=== PATIENT | female | born 1955 | race Caucasian/White ===

== ENCOUNTER → 2019-10-28 09:02 | Outpatient (BNVA) | payer MEDICARE, MEDICAID, SELFPAY | PROVIDERS: Family Provider Family Medicine; Referring Provider Family Medicine; Visit Provider Internal Medicine Rheumatology | DX: M05.79 Rheumatoid arthritis with rheumatoid factor of multiple sites without organ or systems involvement (principal); M19.90 Unspecified osteoarthritis, unspecified site; Z11.59 Encounter for screening for other viral diseases; Z79.899 Other long term (current) drug therapy; I48.20 Chronic atrial fibrillation, unspecified; Z79.01 Long term (current) use of anticoagulants | CPT/HCPCS: 36415; 82306; 82565; 85651; 86140; 86705; 86706; 86709; 86803; 87340; 99214 ==

== ENCOUNTER → 2019-10-28 10:02 | Outpatient (BNVA) | payer MEDICARE, MEDICAID, SELFPAY | PROVIDERS: Family Provider Family Medicine; Referring Provider Family Medicine; Visit Provider Internal Medicine Rheumatology | DX: M05.79 Rheumatoid arthritis with rheumatoid factor of multiple sites without organ or systems involvement (principal); M19.90 Unspecified osteoarthritis, unspecified site; Z79.899 Other long term (current) drug therapy; I48.20 Chronic atrial fibrillation, unspecified; Z79.01 Long term (current) use of anticoagulants | CPT/HCPCS: 85025 ==

== ENCOUNTER → 2020-01-06 12:06 | Outpatient (BNVA) | payer MEDICARE, MEDICAID, SELFPAY | PROVIDERS: Family Provider Family Medicine; PCP Family Medicine; Visit Provider Internal Medicine Rheumatology | DX: M19.90 Unspecified osteoarthritis, unspecified site (principal); Z79.899 Other long term (current) drug therapy; M05.9 Rheumatoid arthritis with rheumatoid factor, unspecified; D64.9 Anemia, unspecified | CPT/HCPCS: 36415; 82565 ==

== ENCOUNTER → 2020-01-06 17:29 | Outpatient (BNVA) | payer MEDICARE, MEDICAID, SELFPAY | PROVIDERS: Family Provider Family Medicine; PCP Family Medicine; Visit Provider Internal Medicine Rheumatology | DX: M05.9 Rheumatoid arthritis with rheumatoid factor, unspecified (principal); Z79.899 Other long term (current) drug therapy; D64.9 Anemia, unspecified | CPT/HCPCS: 80076; 85025; 85651; 86140 ==

== ENCOUNTER → 2020-03-23 09:52 | Outpatient (BNVA) | payer MEDICARE, MEDICAID, SELFPAY | PROVIDERS: Family Provider Family Medicine; PCP Family Medicine; Visit Provider Specialist | DX: Z96.652 Presence of left artificial knee joint (principal) | CPT/HCPCS: 73560; 73565 ==

== ENCOUNTER → 2020-04-18 10:42 | Outpatient (BNVA) | payer MEDICARE, MEDICAID, SELFPAY | PROVIDERS: Family Provider Family Medicine; PCP Family Medicine; Visit Provider Internal Medicine Rheumatology | DX: Z79.899 Other long term (current) drug therapy (principal); M05.79 Rheumatoid arthritis with rheumatoid factor of multiple sites without organ or systems involvement; N18.9 Chronic kidney disease, unspecified | CPT/HCPCS: 82310; 82565; 85025 ==

== ENCOUNTER → 2020-04-20 13:48 | Outpatient (BNVA) | payer MEDICARE, MEDICAID, SELFPAY | PROVIDERS: Family Provider Family Medicine; PCP Family Medicine; Visit Provider Internal Medicine Rheumatology | DX: M05.79 Rheumatoid arthritis with rheumatoid factor of multiple sites without organ or systems involvement (principal); M85.80 Other specified disorders of bone density and structure, unspecified site; I48.20 Chronic atrial fibrillation, unspecified; Z71.89 Other specified counseling; Z79.899 Other long term (current) drug therapy | CPT/HCPCS: 99214 ==

== ENCOUNTER 2020-04-25 15:16 | Outpatient (CLI) | payer MEDICARE, MEDICAID, SELFPAY ==
[2020-04-25 15:15] VITALS: BP 138/75; PULSE 68; RESP 16; TEMP 36.7; O2SAT 93
[2020-04-25] MEDS: denosumab 60 mg SDV SUBCUT (15:27)
[2020-04-25 15:40] VITALS: BP 139/71; PULSE 69; TEMP 36.7
== END 2020-04-25 15:17 | disposition home or self-care (01) ==
LOC: RHEOACUTE 15:16
PROVIDERS: Family Provider Family Medicine; PCP Family Medicine; Visit Provider Internal Medicine Rheumatology
DX: M81.0 Age-related osteoporosis without current pathological fracture (principal)
CPT/HCPCS: 96372; J0897

== ENCOUNTER → 2020-09-12 10:14 | Outpatient (BNVA) | payer MEDICARE, MEDICAID, SELFPAY | PROVIDERS: Family Provider Family Medicine; Visit Provider Internal Medicine Rheumatology | DX: Z79.899 Other long term (current) drug therapy (principal) | CPT/HCPCS: 80076; 82565; 85025; 85651; 86140 ==

== ENCOUNTER → 2020-10-17 10:43 | Outpatient (BNVA) | payer MEDICARE, MEDICAID, SELFPAY | PROVIDERS: Family Provider Family Medicine; PCP Surgery; Visit Provider Internal Medicine Rheumatology | DX: M85.80 Other specified disorders of bone density and structure, unspecified site (principal); Z79.899 Other long term (current) drug therapy | CPT/HCPCS: 82310; 82565 ==

== ENCOUNTER 2020-12-27 13:38 | Outpatient (CLI) | payer MEDICARE, MEDICAID, SELFPAY ==
[2020-12-27 15:40] LABS: Glomerular Filtration Rate 83.5 mL/min (90-130)
[2020-12-27 22:06] LABS: Calcium 8.9 mg/dL (8.5-10.5)
[2021-01-04 18:57] LABS: Vit D 1,25 (Oh)2, Total 57 pg/mL (18-72); Vit D2 1,25 (Oh)2 <8 pg/mL; Vit D3 1,25 (Oh)2 57 pg/mL
== END 2020-12-27 13:39 | disposition home or self-care (01) ==
PROVIDERS: PCP Registered Nurse; Visit Provider Internal Medicine Rheumatology
DX: M81.0 Age-related osteoporosis without current pathological fracture (principal); Z79.899 Other long term (current) drug therapy; M05.79 Rheumatoid arthritis with rheumatoid factor of multiple sites without organ or systems involvement
CPT/HCPCS: 36415; 82310; 82565; 82652

== ENCOUNTER → 2021-01-09 10:10 | Outpatient (BNVA) | payer MEDICARE, MEDICAID, SELFPAY | PROVIDERS: PCP Registered Nurse; Visit Provider Internal Medicine Rheumatology | DX: M05.79 Rheumatoid arthritis with rheumatoid factor of multiple sites without organ or systems involvement (principal); M85.80 Other specified disorders of bone density and structure, unspecified site; Z79.899 Other long term (current) drug therapy | CPT/HCPCS: 36415; 80076; 82306; 82310; 82565; 85025; 86140 ==

== ENCOUNTER 2021-01-11 10:16 | Outpatient (CLI) | payer MEDICARE, MEDICAID, SELFPAY ==
[2021-01-11 10:36] VITALS: BMI 32.4
--- NOTE | 2021-01-11 10:36 | ECG_ITS ---
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 Interpretive Statements NAME OF STUDY: LEXISCAN SESTAMIBI STRESS TEST INDICATION: [Chest Pain] Procedure: At the baseline, blood pressure was 139/71 mmHg, with a heart rate of 59 bpm. The electrocardiogram showed normal sinus rhythm, normal axis with normal ST and T waves. The Lexiscan was infused over a duration of 20 seconds. A total of 0.4 mg of Lexiscan was infused. Stress phase was continued for a total of 5 minutes. Heart rate at the end of stress phase was 72 bpm, with a blood pressure of 113/57 mmHg. The EKG at the peak infusion revealed sinus rhythm with no significant ST-T wave changes. Sestamibi was injected 20 seconds after the Lexiscan infusion. Blood pressure at the end of recovery phase was 116/55 mmHg, with a heart rate of 69 bpm. Conclusion: 1. Normal EKG response to Lexiscan infusion. 2. No Lexiscan induced chest pain or cardiac arrhythmia. 3. Normal blood pressure and heart rate response. 4. Sestamibi/sestamibi perfusion scan pending; see separate report. Electronically Signed On 02-06-2021 12:44:12 CDT by Eitan Vivas M.D. [id number]
--- NOTE | 2021-01-11 10:37 | NMCV_ITS ---
NM gianfranco perf SPECT r/s* [id number] Laila Maloney Age: 65 Gender: F : 1955 Exam Date: 01/11/2021 10:37 Ordering Phys: Eitan Vivas M.D ([email or web address]) Technologist: ELSIE Rizzo Exam Location: [facility] Indications: CHEST PAIN STRESS TEST Please see separate stress test report in [facility] for full findings IMAGE PROTOCOL Rest/Stress 1 Lexiscan Day Radiopharmaceutical Dose (mCi) Administration Site Administered by Rest: Tc-99m 10.9 IV ELSIE Chacon Sestamibi Stress:Tc-99m 32.6 IV ELSIE Chacon Sestamibi Rest: 11-Jan-2021 60 Discovery 630 Stress: 11-Jan-2021 30 Discovery 630 0.4mg Lexiscan. Supine position only as patient was unable to lay prone. SPECT RESULTS Technical Quality: Excellent Raw Data Analysis: Normal Image Corrections: No attenuation or motion correction applied Summed Stress Score: 0 Summed Rest Score: 0 Summed Difference Score: 0 PERFUSION FINDINGS There is homogenous uptake of radiotracer throughout the myocardium. No evidence of ischemia. FUNCTIONAL RESULTS (calculated via Gated SPECT) Stress Image LV EF (%): 95 Stress EDV (mL):59 TID: 0.94 Stress ESV (mL):3 FUNCTIONAL FINDINGS: There is normal left ventricular systolic function. IMPRESSIONS 1. Normal myocardial perfusion imaging with no evidence of ischemia. 2. LV systolic function is normal Eitan Vivas MD (Electronically Signed) Final Date: 12 January 2021 20:31 S
[2021-01-11] MEDS: regadenoson 0.4 Mg/5 ml Syringe IVP (12:40)
[2021-01-11 12:46] VITALS: BP 116/55; PULSE 69
--- NOTE | 2021-01-11 14:15 | USCV_ITS ---
Haider Laila Age: 65 Gender: F : 1955 Exam Date: 01/11/2021 10:31 Ordering Phys: Eitan Vivas M.D ([email or web address]) Technologist: Joyce Way Exam Location: [facility] Indication: CHEST PAIN BP: 126 / 65 HR: 60 Rhythm: Sinus Technical Quality: Adequate MEASUREMENTS (Male / Female) Normal Values 2D ECHO LV Diastolic Diameter PLAX 3.3 cm 4.2 - 5.9 / 3.9 - 5.3 cm LV Systolic Diameter PLAX 1.8 cm LV Chamber Size 2.6 cm IVS Diastolic Thickness 1.4 cm 0.6 - 1.0 / 0.6 - 0.9 cm IVS Systolic Thickness 1.2 cm LVPW Diastolic Thickness 1.5 cm 0.6 - 1.0 / 0.6 - 0.9 cm LVPW Systolic Thickness 2.0 cm RV Chamber Size 2.4 cm LVOT Diameter 2.0 cm LV Ejection Fraction 2D Teich 77.8 % LV Ejection Fraction MOD 2C 68.6 % LV Ejection Fraction 2C AL 68.6 % LA Diameter 3.4 cm LA Width 3.6 cm LA Height 5.2 cm RA Width 3.0 cm RA Height 3.9 cm M-MODE LV Diastolic Diameter MM 4.8 cm 4.2 - 5.9 / 3.9 - 5.3 cm LV Systolic Diameter MM 2.6 cm LV Ejection Fraction MM Teich 77.8 % IVS Diastolic Thickness MM 0.6 cm 0.6 - 1.0 / 0.6 - 0.9 cm IVS Systolic Thickness MM 1.0 cm LVPW Diastolic Thickness MM 1.0 cm 0.6 - 1.0 / 0.6 - 0.9 cm LVPW Systolic Thickness MM 1.5 cm Aortic Annulus Diameter 1.7 cm LA Ao Ratio MM 2.6 MV E Point Septal Separation 0.5 cm DOPPLER AV Peak Velocity 206.7 cm/s LVOT Peak Velocity 137.7 cm/s AV Area Cont Eq vti 2.1 cm squared AV Area Cont Eq pk 2.1 cm squared MV Area PHT 2.6 cm squared Mitral E to A Ratio 1.5 MV E' Velocity 91.5 cm/s Mitral E to MV E' Ratio 10.4 Mitral E to LV E' Lateral Ratio 12.0 Mitral E to LV E' Septal Ratio 9.3 TR Peak Velocity 189.3 cm/s TR Peak Gradient 14.3 mmHg TV Peak E Velocity 81.0 cm/s Right Atrial Pressure 3.0 mmHg Pulmonary Artery Systolic Pressu 17.3 mmHg PV Peak Velocity 78.0 cm/s RV Acceleration Time 0.2 s RV Ejection Time 0.4 s RV AcT/ET 0.4 FINDINGS Left Ventricle Normal left ventricular size. LV systolic function is normal with EF of 60-65%. No regional wall motion abnormalities. Normal diastolic filling pattern. Right Ventricle The right ventricle is normal in size and function. Right Atrium The right atrium is enlarged Left Atrium The left atrium is enlarged Mitral Valve Moderate mitral annular calcification without significant stenosis or prolapse. There is trace mitral regurgitation. Aortic Valve Aortic valve is thickened without significant sclerosis or stenosis. There is no aortic regurgitation. Tricuspid Valve Structurally normal tricuspid valve without significant stenosis or regurgitation. Insufficient TR jet to calculate RVSP Pulmonic Valve Structurally normal pulmonic valve without significant stenosis. There is no pulmonic regurgitation. Pericardium Normal pericardium without effusion. Aorta Normal ascending aorta dimension. CONCLUSIONS LV systolic function is normal with EF of 60-65% Diastolic function is normal Biatrial enlargement Moderate mitral annular calcification is noted. Trace mitral regurgitation Aortic valve is thickened Compared to prior echocardiogram from 01/22/2018, no significant changes are noted Eitan Vivas MD (Electronically Signed) Final Date: 21 January 2021 14:28 S
== END 2021-01-11 10:17 | disposition home or self-care (01) ==
LOC: CDL 10:19
PROVIDERS: PCP Registered Nurse; Visit Provider Internal Medicine
DX: R07.9 Chest pain, unspecified (principal)
CPT/HCPCS: 78452; 93017; 93306; A9500; J2785

== ENCOUNTER → 2021-01-16 16:06 | Outpatient (BNVA) | payer MEDICARE, MEDICAID, SELFPAY | PROVIDERS: PCP Registered Nurse; Visit Provider Internal Medicine Rheumatology | DX: M05.79 Rheumatoid arthritis with rheumatoid factor of multiple sites without organ or systems involvement (principal); Z79.899 Other long term (current) drug therapy; M85.80 Other specified disorders of bone density and structure, unspecified site; I48.20 Chronic atrial fibrillation, unspecified; Z79.01 Long term (current) use of anticoagulants | CPT/HCPCS: 99214 ==

== ENCOUNTER 2021-01-30 12:33 | Outpatient (CLI) | payer MEDICARE, MEDICAID, SELFPAY ==
[2021-01-30] MEDS: denosumab 60 mg SDV SUBCUT (13:05)
[2021-01-30 13:07] VITALS: BP 115/61; PULSE 55; RESP 17; TEMP 36.9; O2SAT 100
== END 2021-01-30 12:34 ==
LOC: ONCMED 12:36
PROVIDERS: PCP Registered Nurse; Visit Provider Internal Medicine Rheumatology
DX: M81.0 Age-related osteoporosis without current pathological fracture (principal)
CPT/HCPCS: 96372; J0897

== ENCOUNTER → 2021-04-26 10:38 | Outpatient (BNVA) | payer MEDICARE, MEDICAID, SELFPAY | PROVIDERS: PCP Registered Nurse; Visit Provider Internal Medicine Rheumatology | DX: Z01.89 Encounter for other specified special examinations (principal); M05.79 Rheumatoid arthritis with rheumatoid factor of multiple sites without organ or systems involvement; Z79.899 Other long term (current) drug therapy | CPT/HCPCS: 80076; 82565; 85025; 86140 ==

== ENCOUNTER → 2021-05-08 09:59 | Outpatient (BNVA) | payer MEDICARE, MEDICAID, SELFPAY | PROVIDERS: PCP Registered Nurse; Visit Provider Registered Nurse | DX: Z01.89 Encounter for other specified special examinations (principal); D64.9 Anemia, unspecified | CPT/HCPCS: 80053; 82607; 82728; 83550; 84443; 85007; 85027 ==

== ENCOUNTER → 2021-05-14 10:24 | Outpatient (BNVA) | payer MEDICARE, MEDICAID, SELFPAY | PROVIDERS: PCP Registered Nurse; Visit Provider Registered Nurse | DX: R31.9 Hematuria, unspecified (principal) | CPT/HCPCS: 81000; 87086 ==

== ENCOUNTER 2021-05-15 10:48 | Outpatient (CLI) | payer MEDICARE, MEDICAID, SELFPAY ==
--- NOTE | 2021-05-15 10:55 | XRR_ITS ---
PROCEDURE INFORMATION: Exam: XR Chest Exam date and time: 05/15/2021 10:55 AM Age: 66 years old Clinical indication: Condition or disease; Lung condition and disease; Copd; Complications not specified; Additional info: J44.9 - chronic obstructive pulmonary disease, unspecified TECHNIQUE: Imaging protocol: XR of the chest. Views: 2 views. COMPARISON: CR XR knees AP WB w LT lmt ORTH 03/23/2020 9:57 AM FINDINGS: Lungs: There is subsegmental atelectasis in the right base. The left lung is clear. Pleural spaces: Small right pleural effusion is present. There is no pneumothorax. Heart/Mediastinum: The cardiac silhouette is at the upper limit of normal size. The aorta is tortuous. Bones/joints: Unremarkable. XR/XR chest 2V* [id number] IMPRESSION: Small right pleural effusion with subsegmental right basilar atelectasis.
== END 2021-05-15 10:49 | disposition home or self-care (01) ==
LOC: RAD 10:51
PROVIDERS: PCP Registered Nurse; Visit Provider Registered Nurse
DX: J44.9 Chronic obstructive pulmonary disease, unspecified (principal); J90 Pleural effusion, not elsewhere classified
CPT/HCPCS: 71046

== ENCOUNTER → 2021-05-28 11:01 | Outpatient (BNVA) | payer MEDICARE, MEDICAID, SELFPAY | PROVIDERS: PCP Registered Nurse; Visit Provider Surgery | DX: Z20.822 Contact with and (suspected) exposure to COVID-19 (principal); Z86.010 Personal history of colon polyps | CPT/HCPCS: 87635 ==

== ENCOUNTER 2021-06-01 09:09 | Day surgery (SDC) | payer MEDICARE, MEDICAID, SELFPAY ==
[2021-05-29 13:23] VITALS: BMI 29.7
--- NOTE | 2021-06-01 09:44 | P.ANESASSM_ITS ---
Pre-Anesthetic Assessment Pre-Anesthetic Assessment: Height/Weight: Height 1.6 m Weight 76.204 kg Preop Diagnosis: Hematemesis and history of colon polyps Proposed Procedure: Operation Date: 06/01/21 11:00 Proposed Procedures p EGD/colon 88653 42589 D64.9 Z86.010(Not Applicable) - MD ana Cates Colonoscopy(Not Applicable) - Yamil Alexander MD Was Beta Kelly taken within 24 hours: N/A Was Clonidine taken within 24 hours: N/A Social: Social History: No alcohol and No tobacco Exam: Pre-Anes Outpt Exam: alert, oriented x 3 and regular rate & rhythm Airway: Submandibular: WNL Cervical ROM: WNL MP: 2 Dentition: False Pulmonary: Pulmonary: COPD and Sleep apnea CV/HEM: CV/HEM: Afib, Anemia, Arrythmia, CHF, HTN and PVD : : Chronic renal Insufficiency Musc/skel: Musc/skel: RA Comments: Chronic steroids Anesthetic Plan: ASA status: 3 Anesthesia: MAC Risk of > 500 ml blood loss (7ml/kg in children): No PFSH Anesthesia PFSH: Medical History Anemia Pt is having unexplained anemia. Undetermined if there is blood loss but patient has no complaints and is stable. Requested previous colonoscopy report. Pt had reported normal findings. However, determined otherwise. See note. Anticoagulated by anticoagulation treatment Anticoagulation adequate Atrial fibrillation Atrial flutter Carotid stenosis, bilateral CHF (congestive heart failure) Chronic headaches Chronic kidney disease (CKD) Single kidney COPD (chronic obstructive pulmonary disease) COPD, mild CVA (cerebral vascular accident) Depression Essential hypertension Hepatitis B High risk medication use MVP (mitral valve prolapse) LUKE (obstructive sleep apnea) Osteopenia after menopause Renal failure Rheumatoid arthritis Rheumatoid arthritis with rheumatoid factor Seropositive rheumatoid arthritis of multiple sites Surgical History History of left knee replacement History of thoracentesis S/P cataract extraction S/P D&C (status post dilation and curettage) S/P knee replacement S/P rotator cuff repair Family History Mother Hypertension CAD (coronary artery disease) Father Hypertension CAD (coronary artery disease) Stroke Cancer Brother Hypertension CAD (coronary artery disease) Sister Hypertension CAD (coronary artery disease) Grandfather CAD (coronary artery disease) Grandmother CAD (coronary artery disease) Stroke Diabetes Daughter Hypertension Other Chronic kidney disease (CKD) Lung disease Social History Alcohol intake: never Lives independently: Yes Household members: significant other Marital status: service: No Current occupational status: retired Current gender identity: Female Apurva/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
[2021-06-01 10:59] VITALS: BP 108/59; PULSE 67; RESP 16; TEMP 37.1; O2SAT 100
[2021-06-01] MEDS: sodium chloride 0.9% 1,000 ML 30 ML IV (11:20)
--- NOTE | 2021-06-01 11:31 | W.PM.OPSUD ---
Surgery/Procedure H&P Update DATE OF PROCEDURE: June 01, 2021 DATE H&P PERFORMED: 05/21/21 H&P UPDATE INFORMATION: I have reviewed H&P completed within last 30 days, I have examined patient prior to procedure and No changes to prior documentation PREOP DIAGNOSIS: Hematemesis and history of colon polyps PRIMARY INDICATION FOR PROCEDURE: The same PLANNED PROCEDURE: Operation Date: 06/01/21 11:00 Proposed Procedures p EGD/colon 07771 93811 D64.9 Z86.010(Not Applicable) - Yamil Alexander MD s Colonoscopy(Not Applicable) - Yamil Alexander MD
[2021-06-01 12:12] VITALS: BP 95/69; PULSE 80; RESP 16; TEMP 36.7; O2SAT 100
[2021-06-01 12:22] VITALS: BP 95/68; PULSE 75; RESP 18; O2SAT 100
--- NOTE | 2021-06-01 15:39 | ANE.PACU2 ---
Inpatient post-anesthesia follow up: Airway intact: Yes Vital signs: Temperature 98.1 F Pulse Rate 75 Respiratory Rate 18 Blood Pressure 95/68 Pulse Oximetry 100 Oxygen Delivery Me thod Nasal Cannula Oxygen Flow Rate 5 Fraction of Inspir ed Oxygen Hydration adequate: Yes Nausea and vomiting: No Pain level: 1 Mental status: Baseline
[2021-06-02 12:07] LABS: H. Pylori / CLO Test Negative
== END 2021-06-01 13:03 | disposition home or self-care (01) ==
PROVIDERS: PCP Registered Nurse; Visit Provider Surgery
PROC: 0DJ08ZZ Inspection of Upper Intestinal Tract, Via Natural or Artificial Opening Endoscopic (ICD-10-PCS; CPT 43235; principal; 2021-06-01 11:00)
PROC: 0DJD8ZZ Inspection of Lower Intestinal Tract, Via Natural or Artificial Opening Endoscopic (ICD-10-PCS; CPT 45378; 2021-06-01 11:00)
DX: K92.0 Hematemesis (principal); Z86.010 Personal history of colon polyps; Z79.82 Long term (current) use of aspirin; Z79.01 Long term (current) use of anticoagulants; K64.4 Residual hemorrhoidal skin tags; K29.70 Gastritis, unspecified, without bleeding; I48.91 Unspecified atrial fibrillation; K21.00 Gastro-esophageal reflux disease with esophagitis, without bleeding; J44.9 Chronic obstructive pulmonary disease, unspecified; G47.33 Obstructive sleep apnea (adult) (pediatric); I13.0 Hypertensive heart and chronic kidney disease with heart failure and stage 1 through stage 4 chronic kidney disease, or unspecified chronic kidney disease; N18.9 Chronic kidney disease, unspecified; I50.9 Heart failure, unspecified; M06.9 Rheumatoid arthritis, unspecified; Z82.49 Family history of ischemic heart disease and other diseases of the circulatory system; Z83.3 Family history of diabetes mellitus
CPT/HCPCS: 43239; 45378; 87077; 88305; 96360; J2704; J3490; J7030

== ENCOUNTER → 2021-06-13 10:25 | Outpatient (BNVA) | payer MEDICARE, MEDICAID, SELFPAY | PROVIDERS: PCP Registered Nurse; Visit Provider Registered Nurse | DX: D64.9 Anemia, unspecified (principal); J90 Pleural effusion, not elsewhere classified | CPT/HCPCS: 82728; 83540; 85025 ==

== ENCOUNTER 2021-06-19 16:18 | Outpatient (CLI) | payer MEDICARE, MEDICAID, SELFPAY ==
--- NOTE | 2021-06-19 16:31 | XR_ITS ---
WS: [id number] XR chest 2V* [id number] REASON FOR EXAM: J90 - Pleural effusion, not elsewhere classified FINDINGS: Tortuous thoracic aorta. The heart size is at the upper limits of normal. No active pulmonary parenchymal or pleural disease in the left hemithorax. Chronic appearing pleural thickening in the lower right hemithorax. Mediastinal mass which presumably represents large hiatal hernia which was demonstrated on previous C T scan of 01/26/2018. Compared to the previous chest x-ray of 05/15/2021 there may be an infiltrative process developing in the right lower XR/XR chest 2V* [id number] IMPRESSION: Chronic appearing pleural changes which may be secondary to large right pleural effusion demonstrated in January 2018. These findings are unchanged compared to 05/15/2021. Concern for subacute or acute pneumonitis in the right lower lung. Follow-up ch est x-ray recommended as is clinically warranted.
== END 2021-06-19 16:19 | disposition home or self-care (01) ==
LOC: RAD 16:24
PROVIDERS: PCP Registered Nurse; Visit Provider Registered Nurse
DX: J90 Pleural effusion, not elsewhere classified (principal)
CPT/HCPCS: 71046

== ENCOUNTER → 2021-06-26 13:50 | Outpatient (BNVA) | payer MEDICARE, MEDICAID, SELFPAY | PROVIDERS: PCP Registered Nurse; Visit Provider Registered Nurse | DX: D64.9 Anemia, unspecified (principal); R53.83 Other fatigue; J18.9 Pneumonia, unspecified organism | CPT/HCPCS: 81000; 85018 ==

== ENCOUNTER → 2021-07-02 10:34 | Outpatient (BNVA) | payer MEDICARE, MEDICAID, SELFPAY | PROVIDERS: PCP Registered Nurse; Visit Provider Registered Nurse | DX: D64.9 Anemia, unspecified (principal) | CPT/HCPCS: 85025 ==

== ENCOUNTER 2021-07-04 08:38 | Outpatient (CLI) | payer MEDICARE, MEDICAID, SELFPAY ==
--- NOTE | 2021-07-04 10:52 | ONC FU_ITS ---
Dr. Nunez follow up note Patient: Laila Maloney Unit #: [id number]: 1955 Dicatated By: London Nunez M.D.Date of Visit:Jul 04, 2021 Onc Med Follow-up/Prog Note History of Present Illness: Ms. Laila Maloney, is a 66-year-old female with history of off and on anemia since age 25, as per patient ,at that time , she was given oral iron and iron infusion with good response and, history of blood transfusion on multiple occasion especially when patient underwent any sort of procedure and last time she received blood transfusion was in 2017 or 18 when she underwent knee replacement. Since then she is on oral iron 1 tablet a day, tolerating well except constipation for which she take Metamucil. Now complaining of off and on indigestion and and generalized weakness and fatigue, lab work-up done on June 13, 2021 shows white blood count 5.2 hemoglobin 7.8 hematocrit 30.1 MCV 67.2 platelets 315,000 and ferritin 12 iron 17, patient was referred to Dr. Alexander for evaluation and she underwent EGD and colonoscopy which showed hiatal hernia GERD and gastritis, colonoscopy showed external hemorrhoids with bleeding stigmata otherwise normal findings Patient denies any history of gastric bypass surgery but patient has history of atrial fibrillation/flutter and on anticoagulation with Eliquis. Patient denies any melena or hematochezia but sometimes mild bleeding from hemorrhoids especially after hard stools. Denies any hemoptysis or hematemesis denies any nosebleed or gum bleed denies any hematuria or vaginal bleeding denies any jaundice. Complaining of generalized weakness and fatigue, dyspnea and palpitation on exertion. As per patient her PMD checked her CBC on June 26, 2021 hemoglobin was 8.6 g. Patient denies any night sweats denies any recurrent fever denies any peripheral lymphadenopathy denies any abdominal fullness, denies any lightheadedness or dizziness denies any weight loss. Patient denies smoking alcohol use. Medications: Acetaminophen Extra Strength 2 Tablet (of 500 mg) Capsule Oral q 6 hours PRN, Albuterol Sulfate HFA 2 Puff(s) (of 108 (90 base) mcg/act) Aerosol, solution Inhalation q PRN, Apixaban 1 Tablet (of 5 mg) Oral b.i.d., Bimatoprost 1 Drop(s) (of 0.01 %) Solution Ophthalmic daily, Eczcsiv-Nrvryyblxaa-Ettpjxzvlo 2 Puff(s) (of 160-9-4.8 mcg/act) Aerosol Inhalation b.i.d., cycloSPORINE 1 Drop(s) (of 0.05 %) Emulsion Ophthalmic b.i.d., DULoxetine HCl Capsule Delayed Release Particles Oral daily, Erythromycin 1 Drop(s) (of 5 mg/g) Ointment Ophthalmic daily, Furosemide 0.5 Tablet (of 20 mg) Oral every am, Ipratropium-Albuterol 2 Puff(s) (of 20-100 mcg/act) Aerosol, solution Inhalation q 6 hours PRN, Metoprolol Tartrate 1 Tablet (of 25 mg) Oral daily, Pantoprazole Sodium 1 Tablet (of 40 mg) Tablet, enteric coated Oral daily, Potassium Chloride Caitlin ER 1 Tablet (of 20 meq) Tablet, controlled release Oral daily, predniSONE 1 Tablet (of 10 mg) Oral daily PRN Allergies: Aspirin, Digoxin, Influenza Vaccine, Monosodium Glutamate, Shellfish, and Sulfa Antibiotics. Review of Systems: Review of Systems is not available for this patient. Vital Signs: Performed on Jul 04, 2021 10:37 Height - 60 in Weight - 164.8 lbs (HIGH) BSA - 1.72 sq.m BMI - 32.19 (HIGH) Temperature - 98.3 F (LOW) Pulse - 54 /min (LOW) Respiration - 18 /min BP - 104/63 mm(hg) O2 Sat - 98 % Pain - 8 Fatigue - 8 Performance Status: 0 - Fully active, able to carry on all predisease activities without restrictions. (ECOG) Physical Examination: ENMT - No mouth sores, no thrush, no jaundice, Respiratory - Lungs are clear to auscultation, Cardiovascular - Irregular rate and rhythm, Abdomen - Soft, bowel sounds present, Extremities - No visible edema. Lab/Imaging: Most recent lab results are not available for this patient. Impression: Microcytic hypochromic anemia due to iron deficiency probably due to chronic blood loss either from hemorrhoids as colonoscopy showed external hemorrhoids with bleeding stigmata other possibility could be small bowel AVMs or iron malabsorption. Atrial fibrillation/atrial flutter on anticoagulation with Eliquis Congestive heart failure Chronic kidney disease COPD Rheumatoid arthritis/seropositive rheumatoid arthritis of multiple sites Plan: Discussed with patient regarding her labs from June 13, 2021 which showed white blood count 5.2 hemoglobin 7.8 hematocrit 30.1 platelets 315,000 ferritin 12, iron 17, as per patient repeat CBC on June 26, 2021 her hemoglobin was 8.6 g., Clinically, patient is doing reasonably well now with symptomatic iron deficiency anemia, not tolerating oral iron well moreover she not responding to oral iron which could be either due to iron malabsorption or noncompliance or chronic blood loss especially small bowel AVMs or bleeding from external hemorrhoids as patient is on anticoagulation for atrial fibrillation. At this point, will consider parenteral iron, Injectafer 750 mg IV weekly x2 then follow her in a month with CBC and iron studies, Patient has history of seropositive rheumatoid arthritis and a chronic kidney disease then may also be contributing to her anemia and considering her age underlying myelodysplasia cannot be ruled out so if with correction of iron deficiency, her anemia still persist then we will consider further evaluation including bone marrow. Return to clinic 1 month after second dose of Injectafer with CBC and iron studies Signed By: London Nunez M.D. <<Signature on File>>
== END 2021-07-04 08:39 | disposition home or self-care (01) ==
PROVIDERS: PCP Registered Nurse; Visit Provider Internal Medicine Hematology & Oncology
DX: D50.9 Iron deficiency anemia, unspecified (principal); I48.91 Unspecified atrial fibrillation; Z79.01 Long term (current) use of anticoagulants; I50.9 Heart failure, unspecified; N18.9 Chronic kidney disease, unspecified; J44.9 Chronic obstructive pulmonary disease, unspecified; M05.9 Rheumatoid arthritis with rheumatoid factor, unspecified; Z79.899 Other long term (current) drug therapy
CPT/HCPCS: 99204

== ENCOUNTER 2021-07-12 14:32 | Outpatient (CLI) | payer MEDICARE, MEDICAID, SELFPAY ==
[2021-07-12] MEDS: sodium chloride 0.9% (100 ml) 100 ML 400 ML (15:20)
[2021-07-12] MEDS: ferric carboxy (IVPB) 750 MG in sodium chloride 0.9% (100 ml) 100 ML 460 MG IV (15:20)
== END 2021-07-12 14:33 | disposition home or self-care (01) ==
LOC: ONCMED 14:34
PROVIDERS: PCP Registered Nurse; Visit Provider Internal Medicine Hematology & Oncology
DX: D50.9 Iron deficiency anemia, unspecified (principal); I48.91 Unspecified atrial fibrillation; Z79.01 Long term (current) use of anticoagulants; I50.9 Heart failure, unspecified; N18.9 Chronic kidney disease, unspecified; J44.9 Chronic obstructive pulmonary disease, unspecified; M05.9 Rheumatoid arthritis with rheumatoid factor, unspecified; Z79.899 Other long term (current) drug therapy
CPT/HCPCS: 96365; J1439

== ENCOUNTER → 2021-07-16 13:44 | Outpatient (BNVA) | payer MEDICARE, MEDICAID, SELFPAY | PROVIDERS: PCP Registered Nurse; Visit Provider Internal Medicine Rheumatology | DX: M05.79 Rheumatoid arthritis with rheumatoid factor of multiple sites without organ or systems involvement (principal); Z79.899 Other long term (current) drug therapy; M85.80 Other specified disorders of bone density and structure, unspecified site; I48.20 Chronic atrial fibrillation, unspecified; Z79.01 Long term (current) use of anticoagulants; Z71.89 Other specified counseling | CPT/HCPCS: 99214 ==

== ENCOUNTER 2021-07-20 09:07 | Outpatient (CLI) | payer MEDICARE, MEDICAID, SELFPAY ==
[2021-07-20] MEDS: ferric carboxy (IVPB) 750 MG in sodium chloride 0.9% (100 ml) 100 ML 460 MG IV (09:56)
== END 2021-07-20 09:08 | disposition home or self-care (01) ==
PROVIDERS: PCP Registered Nurse; Visit Provider Internal Medicine Hematology & Oncology
DX: D50.9 Iron deficiency anemia, unspecified (principal)
CPT/HCPCS: 96374; J1439

== ENCOUNTER 2021-07-23 06:00 | Outpatient (CLI) | payer MEDICARE, MEDICAID, SELFPAY | END 2021-07-23 06:01 | disposition home or self-care (01) | LOC: ONCMED 04-01 11:58 | PROVIDERS: PCP Registered Nurse; Visit Provider Internal Medicine Medical Oncology | DX: M05.79 Rheumatoid arthritis with rheumatoid factor of multiple sites without organ or systems involvement (principal); M85.80 Other specified disorders of bone density and structure, unspecified site; Z79.899 Other long term (current) drug therapy | CPT/HCPCS: 80076; 82306; 82565; 85025; 86140 ==

== ENCOUNTER 2021-08-01 14:08 | Outpatient (CLI) | payer MEDICARE, MEDICAID, SELFPAY ==
[2021-08-01 15:44] LABS: Alanine Aminotransferase 7 U/L (0-33); Albumin Level 4.1 g/dL (3.5-5.2); Alkaline Phosphatase 64 IU/L (35-105); Anion Gap 14.9 (5-19); Aspartate Amino Transferase 15 U/L (0-32); Blood Urea Nitrogen 17 mg/dL (8-23); Calcium 8.7 mg/dL (8.5-10.5); Carbon Dioxide 25 mmol/L (22-29); Chloride 106 mmol/L (98-107); Globulin 3.1 g/dL (1.3-4.6); Glomerular Filtration Rate 83.2 mL/min (90-130); Glucose 84 mg/dL (65-115); Osmolality Calculated 293 mOsm/kg (285-295); Potassium 4.9 mmol/L (3.5-5.1); Sodium 141 mmol/L (136-145); Total Bilirubin 1.4 mg/dL (0.15-1.2); Total Protein 7.2 g/dL (6.6-8.7)
[2021-08-01 16:03] VITALS: BP 119/52; PULSE 71; RESP 18; TEMP 36.9; O2SAT 99
[2021-08-01] MEDS: denosumab 60 mg SDV SUBCUT (16:16)
[2021-08-01 16:28] VITALS: BP 119/53; PULSE 65; RESP 18; TEMP 37.1; O2SAT 98
== END 2021-08-01 14:09 | disposition home or self-care (01) ==
LOC: ONCMED 14:12
PROVIDERS: PCP Registered Nurse; Referring Provider Internal Medicine Rheumatology; Visit Provider Internal Medicine Medical Oncology
DX: M81.0 Age-related osteoporosis without current pathological fracture (principal)
CPT/HCPCS: 36415; 80053; 96372; J0897

== ENCOUNTER → 2021-08-21 10:50 | Outpatient (BNVA) | payer MEDICARE, MEDICAID, SELFPAY | PROVIDERS: PCP Registered Nurse; Visit Provider Internal Medicine Rheumatology | DX: D64.9 Anemia, unspecified (principal); E61.1 Iron deficiency | CPT/HCPCS: 82728 ==

== ENCOUNTER → 2021-09-18 00:01 | Outpatient (BNVA) | payer MEDICARE, MEDICAID, SELFPAY | PROVIDERS: PCP Registered Nurse; Visit Provider Internal Medicine Hematology & Oncology | DX: D64.9 Anemia, unspecified (principal) | CPT/HCPCS: 82728; 83550; 85025 ==

== ENCOUNTER 2021-09-25 09:36 | Outpatient (CLI) | payer MEDICARE, MEDICAID, SELFPAY ==
--- NOTE | 2021-09-25 12:55 | ONC FU_ITS ---
Dr. Nunez follow up note Patient: Laila Maloney Unit #: [id number]: 1955 Dicatated By: London Nunez M.D.Date of Visit:Sep 25, 2021 Onc Med Follow-up/Prog Note History of Present Illness: Ms. Laila Maloney, is a 66-year-old female with history of off and on anemia since age 25, as per patient ,at that time , she was given oral iron and iron infusion with good response and, history of blood transfusion on multiple occasion especially when patient underwent any sort of procedure and last time she received blood transfusion was in 2017 or 18 when she underwent knee replacement. Since then she is on oral iron 1 tablet a day, tolerating well except constipation for which she take Metamucil. Now complaining of off and on indigestion and and generalized weakness and fatigue, lab work-up done on June 13, 2021 shows white blood count 5.2 hemoglobin 7.8 hematocrit 30.1 MCV 67.2 platelets 315,000 and ferritin 12 iron 17, patient was referred to Dr. Alexander for evaluation and she underwent EGD and colonoscopy which showed hiatal hernia GERD and gastritis, colonoscopy showed external hemorrhoids with bleeding stigmata otherwise normal findings Patient denies any history of gastric bypass surgery but patient has history of atrial fibrillation/flutter and on anticoagulation with Eliquis. Patient denies any melena or hematochezia but sometimes mild bleeding from hemorrhoids especially after hard stools. Denies any hemoptysis or hematemesis denies any nosebleed or gum bleed denies any hematuria or vaginal bleeding denies any jaundice. Complaining of generalized weakness and fatigue, dyspnea and palpitation on exertion. As per patient her PMD checked her CBC on June 26, 2021 hemoglobin was 8.6 g. Patient denies any night sweats denies any recurrent fever denies any peripheral lymphadenopathy denies any abdominal fullness, denies any lightheadedness or dizziness denies any weight loss. Patient denies smoking alcohol use. Status post Injectafer 750 mg IV weekly x2 on July 12 and July 20, 2021 with excellent response e.g. resolution of iron deficiency anemia Came for follow-up, denies any specific complaints, no fever chills, no nausea or vomiting, no diarrhea constipation, no melena hematochezia no hemoptysis or hematemesis, no shortness of breath or palpitation. No jaundice Medications: Acetaminophen Extra Strength 2 Tablet (of 500 mg) Capsule Oral q 6 hours PRN, Albuterol Sulfate HFA 2 Puff(s) (of 108 (90 base) mcg/act) Aerosol, solution Inhalation q PRN, Apixaban 1 Tablet (of 5 mg) Oral b.i.d., Bimatoprost 1 Drop(s) (of 0.01 %) Solution Ophthalmic daily, Bukuvbz-Rsgvncoeceu-Ooicderqoj 2 Puff(s) (of 160-9-4.8 mcg/act) Aerosol Inhalation b.i.d., cycloSPORINE 1 Drop(s) (of 0.05 %) Emulsion Ophthalmic b.i.d., DULoxetine HCl Capsule Delayed Release Particles Oral daily, Erythromycin 1 Drop(s) (of 5 mg/g) Ointment Ophthalmic daily, Furosemide 0.5 Tablet (of 20 mg) Oral every am, Humira Subcutaneous Take as Directed, Ipratropium-Albuterol 2 Puff(s) (of 20-100 mcg/act) Aerosol, solution Inhalation q 6 hours PRN, Metoprolol Tartrate 1 Tablet (of 25 mg) Oral daily, Pantoprazole Sodium 1 Tablet (of 40 mg) Tablet, enteric coated Oral daily, Potassium Chloride Caitlin ER 1 Tablet (of 20 meq) Tablet, controlled release Oral daily, predniSONE 1 Tablet (of 10 mg) Oral daily PRN, Topamax 1 Tablet (of 25 mg) Oral daily Allergies: Aspirin, Digoxin, Influenza Vaccine, Monosodium Glutamate, Shellfish, and Sulfa Antibiotics. Review of Systems: Review of Systems is not available for this patient. Vital Signs: Performed on Sep 25, 2021 12:37 Height - 60.00 in Weight - 162.0 lbs (LOW) BSA - 1.71 sq.m BMI - 31.64 (HIGH) Temperature - 97.8 F (LOW) Pulse - 57 /min (LOW) Respiration - 16 /min BP - 111/76 mm(hg) O2 Sat - 99 % Pain - 5 Fatigue - 6 Performance Status: 0 - Fully active, able to carry on all predisease activities without restrictions. (ECOG) Physical Examination: ENMT - No mouth sores, no thrush, no jaundice, Respiratory - Lungs are clear to auscultation, Cardiovascular - Regular rate and rhythm of heart, Abdomen - Soft, bowel sounds present, Extremities - No visible edema. Lab/Imaging: Most recent lab results are not available for this patient. Impression: Microcytic hypochromic anemia due to iron deficiency probably due to chronic blood loss either from hemorrhoids as colonoscopy showed external hemorrhoids with bleeding stigmata other possibility could be small bowel AVMs or iron malabsorption. Atrial fibrillation/atrial flutter on anticoagulation with Eliquis Congestive heart failure Chronic kidney disease COPD Rheumatoid arthritis/seropositive rheumatoid arthritis of multiple sites Plan: Discussed with patient regarding her labs white blood count 3.4 hemoglobin 13.8 g compared to 7.8 g prior to Injectafer infusion, hematocrit 46.8 platelets 223,000, iron studies shows ferritin 135 compared to 12 prior to iron infusion Clinically, patient doing well with no new signs symptom suggestive of gross bleeding, her follow-up labs shows excellent response to parenteral iron now with resolution of iron deficiency anemia and iron studies shows iron stores adequate. At this point will continue to monitor she will return to clinic in 2 months with CBC and iron studies, in the meantime we will obtain capsule endoscopy report from Dr. Hernandez's office. Signed By: London Nunez M.D. <<Signature on File>>
== END 2021-09-25 09:37 | disposition home or self-care (01) ==
LOC: ONCMED 09:41
PROVIDERS: PCP Registered Nurse; Visit Provider Internal Medicine Hematology & Oncology
DX: D50.9 Iron deficiency anemia, unspecified (principal); I48.91 Unspecified atrial fibrillation; Z79.01 Long term (current) use of anticoagulants; I48.92 Unspecified atrial flutter; I50.9 Heart failure, unspecified; J44.9 Chronic obstructive pulmonary disease, unspecified; M06.9 Rheumatoid arthritis, unspecified
CPT/HCPCS: 99214

== ENCOUNTER → 2021-11-20 12:56 | Outpatient (BNVA) | payer MEDICARE, MEDICAID, SELFPAY | PROVIDERS: PCP Registered Nurse; Visit Provider Internal Medicine Rheumatology | DX: M05.79 Rheumatoid arthritis with rheumatoid factor of multiple sites without organ or systems involvement (principal); Z79.899 Other long term (current) drug therapy; M85.80 Other specified disorders of bone density and structure, unspecified site; I48.91 Unspecified atrial fibrillation; Z79.01 Long term (current) use of anticoagulants; Z71.85 Encounter for immunization safety counseling | CPT/HCPCS: 99214 ==

== ENCOUNTER → 2021-11-22 11:47 | Outpatient (BNVA) | payer MEDICARE, MEDICAID, SELFPAY | PROVIDERS: PCP Registered Nurse; Visit Provider Internal Medicine Hematology & Oncology | DX: D64.9 Anemia, unspecified (principal) | CPT/HCPCS: 82728; 83550; 85025 ==

== ENCOUNTER 2021-11-27 14:52 | Outpatient (CLI) | payer MEDICARE, MEDICAID, SELFPAY ==
--- NOTE | 2021-11-28 11:35 | ONC FU_ITS ---
Dr. Nunez follow up note Patient: Laila Maloney Unit #: [id number]: 1955 Dicatated By: London Nunez M.D.Date of Visit:Nov 27, 2021 Onc Med Follow-up/Prog Note History of Present Illness: Ms. Laila Maloney, is a 66-year-old female with history of off and on anemia since age 25, as per patient ,at that time , she was given oral iron and iron infusion with good response and, history of blood transfusion on multiple occasion especially when patient underwent any sort of procedure and last time she received blood transfusion was in 2017 or 18 when she underwent knee replacement. Since then she is on oral iron 1 tablet a day, tolerating well except constipation for which she take Metamucil. Now complaining of off and on indigestion and and generalized weakness and fatigue, lab work-up done on June 13, 2021 shows white blood count 5.2 hemoglobin 7.8 hematocrit 30.1 MCV 67.2 platelets 315,000 and ferritin 12 iron 17, patient was referred to Dr. Alexander for evaluation and she underwent EGD and colonoscopy which showed hiatal hernia GERD and gastritis, colonoscopy showed external hemorrhoids with bleeding stigmata otherwise normal findings, Capsule endoscopy done on August 10, 2021 showed normal video capsule endoscopy of small bowel, no ulcer or polyp or AVM or other lesions seen Patient denies any history of gastric bypass surgery but patient has history of atrial fibrillation/flutter and on anticoagulation with Eliquis. Patient denies any melena or hematochezia but sometimes mild bleeding from hemorrhoids especially after hard stools. Denies any hemoptysis or hematemesis denies any nosebleed or gum bleed denies any hematuria or vaginal bleeding denies any jaundice. Complaining of generalized weakness and fatigue, dyspnea and palpitation on exertion. As per patient her PMD checked her CBC on June 26, 2021 hemoglobin was 8.6 g. Patient denies any night sweats denies any recurrent fever denies any peripheral lymphadenopathy denies any abdominal fullness, denies any lightheadedness or dizziness denies any weight loss. Patient denies smoking alcohol use. Sleep apnea, on CPAP machine Status post Injectafer 750 mg IV weekly x2 on July 12 and July 20, 2021 with excellent response e.g. resolution of iron deficiency anemia Came for follow-up, denies any specific complaints, no fever chills, no nausea or vomiting, no diarrhea or constipation, no melena or hematochezia, no hemoptysis or hematemesis, no jaundice, no abdominal pain, no hematuria or dysuria. Medications: Acetaminophen Extra Strength 2 Tablet (of 500 mg) Capsule Oral q 6 hours PRN, Albuterol Sulfate HFA 2 Puff(s) (of 108 (90 base) mcg/act) Aerosol, solution Inhalation q PRN, Apixaban 1 Tablet (of 5 mg) Oral b.i.d., Bimatoprost 1 Drop(s) (of 0.01 %) Solution Ophthalmic daily, Kgkeerk-Fugdetwtvfo-Nyhqzqatli 2 Puff(s) (of 160-9-4.8 mcg/act) Aerosol Inhalation b.i.d., cycloSPORINE 1 Drop(s) (of 0.05 %) Emulsion Ophthalmic b.i.d., DULoxetine HCl Capsule Delayed Release Particles Oral daily, Erythromycin 1 Drop(s) (of 5 mg/g) Ointment Ophthalmic daily, Furosemide 0.5 Tablet (of 20 mg) Oral every am, Humira Subcutaneous Take as Directed, Ipratropium-Albuterol 2 Puff(s) (of 20-100 mcg/act) Aerosol, solution Inhalation q 6 hours PRN, Metoprolol Tartrate 1 Tablet (of 25 mg) Oral daily, Pantoprazole Sodium 1 Tablet (of 40 mg) Tablet, enteric coated Oral daily, Potassium Chloride Caitlin ER 1 Tablet (of 20 meq) Tablet, controlled release Oral daily, predniSONE 1 Tablet (of 10 mg) Oral daily PRN, Topamax 1 Tablet (of 25 mg) Oral daily Allergies: Aspirin, Digoxin, Influenza Vaccine, Monosodium Glutamate, Shellfish, and Sulfa Antibiotics. Review of Systems: Review of Systems is not available for this patient. Vital Signs: Performed on Nov 27, 2021 15:28 Height - 60.00 in Weight - 166.8 lbs (HIGH) BSA - 1.73 sq.m BMI - 32.58 (HIGH) Temperature - 97.6 F (LOW) Pulse - 58 /min (LOW) Respiration - 16 /min BP - 94/65 mm(hg) O2 Sat - 98 % Pain - 0 Fatigue - 4 Performance Status: 0 - Fully active, able to carry on all predisease activities without restrictions. (ECOG) Physical Examination: ENMT - No mouth sores, no thrush, no jaundice, Respiratory - Lungs are clear to auscultation, Cardiovascular - Regular rate and rhythm of heart, Abdomen - Soft, bowel sounds present, Extremities - No visible edema. Lab/Imaging: Test performed on Nov 22, 2021 10:40 Ferritin 113 ng/mL TIBC 289 mcg/dL WBC 4.3 10^9/L RBC 5.68 10^12/L HGB 14.8 g/dL HCT 49.3 % MCV 86.8 fl MCH 26.1 pg MCHC 30.0 g/dL RDW 16.6 % Platelet Count 230 10^9/L MPV 11.9 fL Neutrophils (Gran) 2.27 10^9/L Lymphocytes 1.2728 10^9/L Monocytes 0.5246 10^9/L Eosinophils 0.1634 10^9/L Basophils 0.0301 10^9/L Test performed on Sep 18, 2021 16:30 % Iron Saturation 17.2 % Iron, Total 42 mcg/dL NRBCs 0 /100 WBC Test performed on Aug 01, 2021 16:27 Glucose 84 mg/dL BUN 17 mg/dL Creatinine 0.7 mg/dL Cr Clearance (Est) 89.23 mL/min Sodium 141 mmol/L Potassium 4.9 mmol/L Chloride 106 mmol/L CO2 25 mmol/L Calcium 8.7 mg/dL Protein, Total 7.2 g/dL Albumin 4.1 g/dL Globulin 3.1 g/dL Bilirubin, Total 1.4 mg/dL Alkaline Phosphatase 64 International Units/L AST (SGOT) 15 International Units/L ALT (SGPT) 7 International Units/L Test performed on Jul 23, 2021 16:27 Vitamin D (25-Hydroxy), Total 30 ng/mL Test performed on Jul 23, 2021 10:28 C-Reactive Protein (mg/L) 3.6 mg/L Impression: Microcytic hypochromic anemia due to iron deficiency probably due to chronic blood loss either from hemorrhoids as colonoscopy showed external hemorrhoids with bleeding stigmata other possibility could be small bowel AVMs or iron malabsorption., Resolved with parenteral iron given in July 2021 Atrial fibrillation/atrial flutter on anticoagulation with Eliquis Congestive heart failure Chronic kidney disease COPD 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 Her follow-up iron studies shows adequate iron stores, will continue to monitor and she will return to clinic in 3 months with CBC and iron studies. Signed By: London Nunez M.D. <<Signature on File>>
== END 2021-11-27 14:53 | disposition home or self-care (01) ==
LOC: ONCMED 15:01
PROVIDERS: PCP Registered Nurse; Visit Provider Internal Medicine Hematology & Oncology
DX: D50.9 Iron deficiency anemia, unspecified (principal); I48.91 Unspecified atrial fibrillation; I50.9 Heart failure, unspecified; J44.9 Chronic obstructive pulmonary disease, unspecified; G47.33 Obstructive sleep apnea (adult) (pediatric); N18.9 Chronic kidney disease, unspecified; M05.9 Rheumatoid arthritis with rheumatoid factor, unspecified; Z79.01 Long term (current) use of anticoagulants; Z79.899 Other long term (current) drug therapy; Z98.84 Bariatric surgery status
CPT/HCPCS: 99214

== ENCOUNTER → 2022-01-17 13:55 | Outpatient (BNVA) | payer MEDICARE, MEDICAID, SELFPAY | PROVIDERS: PCP Registered Nurse; Visit Provider Internal Medicine | DX: I48.20 Chronic atrial fibrillation, unspecified (principal) | CPT/HCPCS: 99213; 99214 ==

== ENCOUNTER 2022-01-31 12:40 | Outpatient (CLI) | payer MEDICARE, MEDICAID, SELFPAY ==
[2022-01-31 13:41] LABS: Albumin Level 4.3 g/dL (3.5-5.2); Calcium 9.4 mg/dL (8.5-10.5); Glomerular Filtration Rate 55.1 mL/min (90-130)
[2022-01-31 13:45] VITALS: BP 99/59; PULSE 55; RESP 16; TEMP 36.6; O2SAT 96
[2022-01-31 13:56] LABS: 25 Hydroxy Vitamin D 29 ng/mL (30-100)
[2022-01-31] MEDS: denosumab 60 mg SDV SUBCUT (13:59)
[2022-01-31 14:18] VITALS: BP 110/73; PULSE 52; RESP 16; TEMP 36.4; O2SAT 96
== END 2022-01-31 12:41 | disposition home or self-care (01) ==
PROVIDERS: PCP Registered Nurse; Visit Provider Internal Medicine Rheumatology
DX: M81.0 Age-related osteoporosis without current pathological fracture (principal); I12.9 Hypertensive chronic kidney disease with stage 1 through stage 4 chronic kidney disease, or unspecified chronic kidney disease; N18.9 Chronic kidney disease, unspecified; D64.9 Anemia, unspecified
CPT/HCPCS: 36415; 82040; 82306; 82310; 82565; 96372; J0897

== ENCOUNTER 2022-03-26 14:51 | Outpatient (CLI) | payer MEDICARE, MEDICAID, SELFPAY ==
--- NOTE | 2022-03-26 14:59 | MM_ITS ---
WS: [id number] BILATERAL 3D TOMOSYNTHESIS DIGITAL SCREENING MAMMOGRAPHY WITH CAD CLINICAL INFORMATION: SCREEN HISTORY: Screening mammogram. No current complaints. COMPARISON: TECHNIQUE: Bilateral CC and MLO views. FINDINGS: Scattered fibroglandular densities bilaterally. Incidental punctate calcifications. Vascular calcific ation. No suspicious focal mass, asymmetry, calcifications, or architectural distortion. No evidence of malignancy. MM/[place] [id number] IMPRESSION: BI-RADS: 2-Benign FOLLOW UP: 1 Year Follow-up Recommend return to annual screening mammography.
== END 2022-03-26 14:52 | disposition home or self-care (01) ==
LOC: RAD 14:53
PROVIDERS: PCP Registered Nurse; Visit Provider Registered Nurse
DX: Z12.31 Encounter for screening mammogram for malignant neoplasm of breast (principal)
CPT/HCPCS: 77063; 77067

== ENCOUNTER → 2022-03-28 09:59 | Outpatient (BNVA) | payer MEDICARE, MEDICAID, SELFPAY | PROVIDERS: PCP Registered Nurse; Visit Provider Internal Medicine Cardiovascular Disease | DX: D50.9 Iron deficiency anemia, unspecified (principal) | CPT/HCPCS: 82728; 83550; 85025 ==

== ENCOUNTER 2022-04-03 14:31 | Oncology outpatient (recurring) (ONCR) | payer MEDICARE, MEDICAID, SELFPAY | END 2022-04-03 23:59 | disposition home or self-care (01) | PROVIDERS: PCP Registered Nurse; Visit Provider Nurse Practitioner Family | DX: D64.9 Anemia, unspecified (principal) | CPT/HCPCS: 99214 ==

== ENCOUNTER → 2022-04-29 13:40 | Outpatient (BNVA) | payer MEDICARE, MEDICAID, SELFPAY | PROVIDERS: PCP Registered Nurse; Visit Provider Internal Medicine Rheumatology | DX: M05.79 Rheumatoid arthritis with rheumatoid factor of multiple sites without organ or systems involvement (principal); Z79.899 Other long term (current) drug therapy; M85.80 Other specified disorders of bone density and structure, unspecified site; I48.91 Unspecified atrial fibrillation; Z79.01 Long term (current) use of anticoagulants; Z71.85 Encounter for immunization safety counseling | CPT/HCPCS: 80076; 82565; 85025; 86140; 99214 ==

== ENCOUNTER → 2022-07-02 09:25 | Outpatient (BNVA) | payer MEDICARE, MEDICAID, SELFPAY | PROVIDERS: PCP Registered Nurse; Visit Provider Registered Nurse | DX: D64.9 Anemia, unspecified (principal); R10.9 Unspecified abdominal pain; N18.9 Chronic kidney disease, unspecified | CPT/HCPCS: 80053; 81000; 82607; 82728; 83550; 85025 ==

== ENCOUNTER 2022-07-04 14:56 | Oncology outpatient (recurring) (ONCR) | payer MEDICARE, MEDICAID, SELFPAY | END 2022-07-05 23:59 | disposition home or self-care (01) | PROVIDERS: PCP Registered Nurse; Visit Provider Nurse Practitioner Family | DX: D64.9 Anemia, unspecified (principal); K44.9 Diaphragmatic hernia without obstruction or gangrene; K21.9 Gastro-esophageal reflux disease without esophagitis; K29.70 Gastritis, unspecified, without bleeding; K64.4 Residual hemorrhoidal skin tags; Z79.899 Other long term (current) drug therapy | CPT/HCPCS: 99214 ==

== ENCOUNTER → 2022-07-18 13:22 | Outpatient (BNVA) | payer MEDICARE, MEDICAID, SELFPAY | PROVIDERS: PCP Registered Nurse; Visit Provider Internal Medicine | DX: I48.20 Chronic atrial fibrillation, unspecified (principal); Z79.01 Long term (current) use of anticoagulants | CPT/HCPCS: 99213; 99214 ==

== ENCOUNTER → 2022-08-02 09:28 | Outpatient (BNVA) | payer MEDICARE, MEDICAID, SELFPAY | PROVIDERS: PCP Registered Nurse; Referring Provider Registered Nurse; Visit Provider Student in an Organized Health Care Education/Training Program | DX: G56.03 Carpal tunnel syndrome, bilateral upper limbs (principal); M05.79 Rheumatoid arthritis with rheumatoid factor of multiple sites without organ or systems involvement | CPT/HCPCS: 73130; 99204 ==

== ENCOUNTER 2022-08-07 12:57 | Outpatient (CLI) | payer MEDICARE, MEDICAID, SELFPAY ==
[2022-08-07 13:09] VITALS: BP 133/77; PULSE 58; RESP 18; TEMP 36.6; O2SAT 98
[2022-08-07] MEDS: denosumab 60 mg SDV SUBCUT (13:32)
[2022-08-07 13:52] VITALS: BP 136/73; PULSE 58; RESP 18; TEMP 36.3; O2SAT 95
== END 2022-08-07 12:58 | disposition home or self-care (01) ==
LOC: ONCMED 13:01
PROVIDERS: PCP Registered Nurse; Visit Provider Internal Medicine Rheumatology
DX: I48.20 Chronic atrial fibrillation, unspecified (principal); I50.9 Heart failure, unspecified; I25.2 Old myocardial infarction; Z79.899 Other long term (current) drug therapy
CPT/HCPCS: 96372; 99214; J0897

== ENCOUNTER 2022-08-20 11:51 | Outpatient (CLI) | payer MEDICARE, MEDICAID, SELFPAY ==
[2022-08-20 12:29] LABS: Basophils % 0.5 %; Eosinophils # 0.2 10^3/uL (0.0-0.8); Eosinophils % 3.7 %; Hematocrit 43.9 % (37.0-47.0); Hemoglobin 12.9 g/dL (11.5-15.3); Lymphocytes # 1.3 10^3/uL (0.8-4.8); Lymphocytes % 22.9 %; Mean Corpuscular HGB Conc 29.4 g/dL (30.0-36.0); Mean Corpuscular Volume 85.2 fl (81-99); Mean Platelet Volume 10.5 fL (7.4-10.4); Monocytes # 0.5 10^3/uL (0.2-0.9); Monocytes % 8.5 %; Neutrophils # 3.61 10^3/uL (1.8-7.7); Neutrophils % 64.2 %; Nucleated Red Blood Cells % 0 %; Platelet Count 317 10^3/cmm (130-400); Red Blood Count 5.15 10^6/uL (4.1-5.3); Red Cell Distribution Width 14.5 % (12.1-15.1); White Blood Count 5.6 10^3/uL (4.0-10.0)
[2022-08-20 12:56] LABS: Alanine Aminotransferase 6 U/L (0-33); Albumin Level 3.9 g/dL (3.5-5.2); Alkaline Phosphatase 88 U/L (35-105); Aspartate Amino Transferase 13 U/L (0-32); C Reactive Protein 25.6 mg/L (0.0-4.9); Globulin 4.2 g/dL (1.3-4.6); Glomerular Filtration Rate 71.1 mL/min (90-130); Total Protein 8.1 g/dL (6.6-8.7)
== END 2022-08-20 11:52 | disposition home or self-care (01) ==
LOC: LAB 12:02
PROVIDERS: PCP Registered Nurse; Visit Provider Internal Medicine Rheumatology
DX: M05.79 Rheumatoid arthritis with rheumatoid factor of multiple sites without organ or systems involvement (principal); Z79.899 Other long term (current) drug therapy; Z71.85 Encounter for immunization safety counseling; M85.80 Other specified disorders of bone density and structure, unspecified site; I48.91 Unspecified atrial fibrillation; Z79.01 Long term (current) use of anticoagulants
CPT/HCPCS: 36415; 80076; 82565; 85025; 86140; 99214

== ENCOUNTER → 2022-10-01 14:42 | Outpatient (BNVA) | payer MEDICARE, MEDICAID, SELFPAY | PROVIDERS: PCP Registered Nurse; Visit Provider Internal Medicine | DX: I48.20 Chronic atrial fibrillation, unspecified (principal); Z79.01 Long term (current) use of anticoagulants | CPT/HCPCS: 99214 ==

== ENCOUNTER 2022-10-03 12:23 | Oncology outpatient (recurring) (ONCR) | payer MEDICARE, MEDICAID, SELFPAY ==
[2022-10-03 12:45] LABS: Basophils % 0.7 %; Eosinophils # 0.2 10^3/uL (0.0-0.8); Eosinophils % 3.2 %; Hematocrit 42.7 % (37.0-47.0); Hemoglobin 12.4 g/dL (11.5-15.3); Lymphocytes # 1.3 10^3/uL (0.8-4.8); Lymphocytes % 21.7 %; Mean Corpuscular Hemoglobin 23.5 pg (28.0-34.0); Monocytes # 0.6 10^3/uL (0.2-0.9); Monocytes % 9.6 %; Neutrophils # 3.78 10^3/uL (1.8-7.7); Neutrophils % 64.5 %; Nucleated Red Blood Cells % 0 %; Platelet Count 346 10^3/cmm (130-400); Red Blood Count 5.27 10^6/uL (4.1-5.3); Red Cell Distribution Width 14.8 % (12.1-15.1); White Blood Count 5.9 10^3/uL (4.0-10.0)
[2022-10-03 13:13] LABS: Ferritin 5 ng/mL (15-150); Iron 26 ug/dL (37-145); Percent Saturation 7.2 % (20-50); Total Iron Binding Capacity 360 mcg/dl; Unsaturated Iron Binding 334 ug/dL (112-347)
[2022-10-03 13:29] LABS: Vitamin B12 454 pg/mL (232-1245)
== END 2022-10-05 23:59 | disposition home or self-care (01) ==
LOC: ONCMED 12:24
PROVIDERS: Internal Medicine Hematology & Oncology; PCP Registered Nurse; Visit Provider Nurse Practitioner Family
DX: D50.9 Iron deficiency anemia, unspecified (principal); I48.91 Unspecified atrial fibrillation; Z79.01 Long term (current) use of anticoagulants; R53.1 Weakness; R53.83 Other fatigue; Z79.899 Other long term (current) drug therapy
CPT/HCPCS: 36415; 82607; 82728; 83540; 83550; 85025; 99214

== ENCOUNTER 2022-11-01 10:30 | Oncology outpatient (recurring) (ONCR) | payer MEDICARE, MEDICAID, SELFPAY ==
[2022-10-17] MEDS: acetaminophen 325 mg Tablet 650 MG PO (14:26)
[2022-10-17] MEDS: sodium chloride 0.9% 250 ML 75 ML IV (14:27)
[2022-10-17] MEDS: iron sucrose 200 MG in sodium chloride 0.9% (100 ml) 100 ML 220 MG IV (14:27)
[2022-10-17] MEDS: diphenhydrAMINE 50 mg/mL SDV 1mL 25 MG IVP (14:28)
[2022-10-17 15:33] VITALS: BP 157/64; PULSE 55; RESP 18; TEMP 35.6; O2SAT 99
[2022-10-21 13:08] VITALS: BP 103/51; PULSE 69; RESP 18; TEMP 36.5; O2SAT 96
[2022-10-21] MEDS: diphenhydrAMINE 50 mg/mL SDV 1mL 25 MG IVP (13:19)
[2022-10-21] MEDS: acetaminophen 325 mg Tablet 650 MG PO (13:20)
[2022-10-21] MEDS: sodium chloride 0.9% 250 ML 75 ML IV (13:20)
[2022-10-21] MEDS: iron sucrose 200 MG in sodium chloride 0.9% (100 ml) 100 ML 220 MG IV (13:20)
[2022-10-21 14:05] VITALS: BP 126/64; PULSE 53; RESP 18; TEMP 36.3; O2SAT 100
[2022-10-23] MEDS: sodium chloride 0.9% 250 ML 75 ML IV (13:55)
[2022-10-23] MEDS: diphenhydrAMINE 50 mg/mL SDV 1mL 25 MG IVP (14:01)
[2022-10-23] MEDS: acetaminophen 325 mg Tablet 650 MG PO (14:01)
[2022-10-23] MEDS: iron sucrose 200 MG in sodium chloride 0.9% (100 ml) 100 ML 220 MG IV (14:21)
[2022-10-23 15:07] VITALS: BP 131/85; PULSE 72; RESP 18; TEMP 36.2; O2SAT 99
[2022-10-28] MEDS: acetaminophen 325 mg Tablet 650 MG PO (13:34)
[2022-10-28] MEDS: iron sucrose 200 MG in sodium chloride 0.9% (100 ml) 100 ML 220 MG IV (13:35)
[2022-10-28] MEDS: diphenhydrAMINE 25 mg Capsule PO (13:35)
[2022-10-28] MEDS: sodium chloride 0.9% 250 ML IV (13:35)
[2022-10-28 13:38] VITALS: BP 136/70; PULSE 65; RESP 18; TEMP 36.4; O2SAT 96
[2022-10-28 14:20] VITALS: BP 115/65; PULSE 54; RESP 18; TEMP 36.6; O2SAT 99
[2022-11-01] MEDS: sodium chloride 0.9% 250 ML IV (10:57)
[2022-11-01] MEDS: acetaminophen 325 mg Tablet 650 MG PO (11:00)
[2022-11-01] MEDS: iron sucrose 200 MG in sodium chloride 0.9% (100 ml) 100 ML 220 MG IV (11:06)
[2022-11-01] MEDS: diphenhydrAMINE 25 mg Capsule PO (11:11)
[2022-11-01 11:52] VITALS: PULSE 65; RESP 18; TEMP 36.4; O2SAT 97
== END 2022-11-05 23:59 | disposition home or self-care (01) ==
PROVIDERS: PCP Registered Nurse; Visit Provider Internal Medicine Hematology & Oncology
DX: D50.9 Iron deficiency anemia, unspecified (principal); Z79.899 Other long term (current) drug therapy
CPT/HCPCS: 96365; 96375; J1200; J1756; J7050

== ENCOUNTER → 2022-12-02 13:48 | Outpatient (BNVA) | payer MEDICARE, MEDICAID, SELFPAY | PROVIDERS: PCP Registered Nurse; Visit Provider Internal Medicine Rheumatology | DX: M05.79 Rheumatoid arthritis with rheumatoid factor of multiple sites without organ or systems involvement (principal); Z79.899 Other long term (current) drug therapy; Z71.85 Encounter for immunization safety counseling; M85.80 Other specified disorders of bone density and structure, unspecified site; D50.9 Iron deficiency anemia, unspecified; I48.91 Unspecified atrial fibrillation; Z79.01 Long term (current) use of anticoagulants | CPT/HCPCS: 36415; 80076; 82565; 82728; 83540; 83550; 85025; 86140; 99214 ==

== ENCOUNTER 2022-12-03 16:03 | Oncology outpatient (recurring) (ONCR) | payer MEDICARE, MEDICAID, SELFPAY | END 2022-12-03 23:59 | disposition home or self-care (01) | PROVIDERS: PCP Registered Nurse; Visit Provider Internal Medicine Hematology & Oncology | DX: D50.9 Iron deficiency anemia, unspecified (principal); I48.20 Chronic atrial fibrillation, unspecified; Z79.01 Long term (current) use of anticoagulants; Z79.899 Other long term (current) drug therapy | CPT/HCPCS: 99214 ==

== ENCOUNTER → 2023-01-16 14:17 | Outpatient (BNVA) | payer MEDICARE, MEDICAID, SELFPAY | PROVIDERS: PCP Registered Nurse; Visit Provider Internal Medicine | DX: I48.20 Chronic atrial fibrillation, unspecified (principal); Z79.01 Long term (current) use of anticoagulants | CPT/HCPCS: 99214 ==

== ENCOUNTER 2023-01-30 14:55 | Outpatient (CLI) | payer MEDICARE, MEDICAID, SELFPAY ==
--- NOTE | 2023-01-30 15:05 | CT_ITS ---
WS: [id number] CTA NECK TECHNIQUE: Contrast enhanced CTA of the neck with coronal and sagittal reformatted images and maximum intensity projection (MIP) images. NASCET criteria utilized. CLINICAL INFORMATION: Rule out left subclavian stenosis COMPARISON: None. DLP: 239.[address] scans at [facility] use at least one of these dose optimization techniques: automated e xposure control; mA and/or kV adjustment per patient size (includes targeted exams where dose is matc hed to clinical indication); or iterative reconstruction. FINDINGS: LEFT arm contrast injection was performed. Inability to obtain IV in the RIGHT arm. RIGHT: RIGHT common carotid artery is patent. Mild calcified atheromatous plaque RIGHT carotid bulb e xtending into the ICA. No significant RIGHT ICA stenosis. ICA is patent to the skull base. LEFT: LEFT common carotid artery is patent. No significant LEFT ICA stenosis. LEFT ICA is patent to t he skull base. Proximal LEFT subclavian artery is occluded just distal to the origin. LEFT vertebral artery is paten t and arises from the occluded portion of the subclavian presumably with reversed flow with subclavia n steal. Subclavian artery reconstitutes just distal to the vertebral artery origin. Advanced atherom atous plaque in the proximal reconstituted subclavian artery with somewhat diminutive subclavian katheryn ry. This appears patent in the axilla RIGHT vertebral artery is patent. Vertebral arteries are patent to the basilar junction. Moderate cav ernous carotid calcification. Mastoid air cells well aerated. Paranasal sinuses are well aerated. LEF T thyroid nodule measuring 14 mm. Lung apices are well aerated. Normal posterior nasopharynx. Straigh tening of the normal cervical lordosis. Slight anterolisthesis C2 on C3. Slight retrolisthesis C4 on C5. Disc space narrowing worse at C4-C5 and C5-C6. CT/CT angio neck [id number] IMPRESSION: 1. No significant ICA stenosis bilaterally. Mild calcified atheromatous plaque RIGHT carotid bulb. 2. Subclavian artery is occluded just distal to the origin. This reconstitutes at the level of the vertebral artery origin presumably due to reversed flow wi th subclavian steal. This can be further evaluated with ultrasound for directio nal confirmation. 3. Reconstituted subclavian artery is somewhat diminutive with dense irregular atheromatous plaque but appears patent in the axilla. This is partially degra ded by left-sided contrast injection. 4. RIGHT vertebral artery is patent. 5. LEFT common carotid artery arises from the innominate. 6. Basilar artery is patent. Both ICAs are patent at the skull base. Cavernous carotid calcification.
[2023-01-30] MEDS: iohexol 350 mg/mL 500 mL Btl (per mL) IV (16:34)
== END 2023-01-30 14:56 | disposition home or self-care (01) ==
LOC: RAD 15:00
PROVIDERS: PCP Registered Nurse; Visit Provider Internal Medicine
DX: I65.23 Occlusion and stenosis of bilateral carotid arteries (principal); M54.2 Cervicalgia; M54.9 Dorsalgia, unspecified
CPT/HCPCS: 70498; Q9967

== ENCOUNTER 2023-02-17 13:51 | Oncology outpatient (recurring) (ONCR) | payer OTHER, MEDICAID, SELFPAY ==
[2023-02-17 15:54] LABS: Albumin Level 3.5 g/dL (3.5-5.2)
[2023-02-17 16:33] LABS: 25 Hydroxy Vitamin D 31 ng/mL (30-100)
== END 2023-03-05 23:59 | disposition home or self-care (01) ==
PROVIDERS: Internal Medicine Rheumatology; PCP Registered Nurse; Visit Provider Registered Nurse
DX: M85.80 Other specified disorders of bone density and structure, unspecified site; Z78.0 Asymptomatic menopausal state; Z79.899 Other long term (current) drug therapy
CPT/HCPCS: 36415; 82040; 82306; 82310; 82565

== ENCOUNTER → 2023-02-20 13:58 | Outpatient (BNVA) | payer MEDICARE, MEDICAID, SELFPAY | PROVIDERS: PCP Registered Nurse; Visit Provider Thoracic Surgery (Cardiothoracic Vascular Surgery) | DX: G45.8 Other transient cerebral ischemic attacks and related syndromes (principal) | CPT/HCPCS: 99203 ==

== ENCOUNTER 2023-02-20 15:19 | Outpatient (CLI) | payer MEDICARE, MEDICAID, SELFPAY ==
[2023-02-20 16:57] LABS: Basophils % 0.7 %; Eosinophils # 0.1 10^3/uL (0.0-0.8); Eosinophils % 2.1 %; Hematocrit 43.7 % (37.0-47.0); Hemoglobin 13.7 g/dL (11.5-15.3); Lymphocytes # 1.3 10^3/uL (0.8-4.8); Lymphocytes % 22.3 %; Mean Corpuscular HGB Conc 31.4 g/dL (30.0-36.0); Mean Corpuscular Hemoglobin 27.2 pg (28.0-34.0); Mean Corpuscular Volume 86.9 fl (81-99); Mean Platelet Volume 10.4 fL (7.4-10.4); Monocytes # 0.6 10^3/uL (0.2-0.9); Monocytes % 10.1 %; Neutrophils # 3.75 10^3/uL (1.8-7.7); Neutrophils % 64.5 %; Nucleated Red Blood Cells % 0 %; Platelet Count 337 10^3/cmm (130-400); Red Blood Count 5.03 10^6/uL (4.1-5.3); Red Cell Distribution Width 14.7 % (12.1-15.1); White Blood Count 5.8 10^3/uL (4.0-10.0)
[2023-02-20 17:14] LABS: Alanine Aminotransferase < 5 U/L (0-33); Alkaline Phosphatase 86 U/L (35-105); Aspartate Amino Transferase 14 U/L (0-32); C Reactive Protein 35.5 mg/L (0.0-4.9); Globulin 3.8 g/dL (1.3-4.6); Total Bilirubin 0.8 mg/dL (0.15-1.2); Total Protein 7.8 g/dL (6.6-8.7)
== END 2023-02-20 15:20 | disposition home or self-care (01) ==
LOC: LAB 15:26
PROVIDERS: PCP Registered Nurse; Visit Provider Internal Medicine Rheumatology
DX: M05.79 Rheumatoid arthritis with rheumatoid factor of multiple sites without organ or systems involvement (principal); Z79.899 Other long term (current) drug therapy
CPT/HCPCS: 36415; 80076; 85025; 86140

== ENCOUNTER → 2023-02-24 14:41 | Outpatient (BNVA) | payer MEDICARE, MEDICAID, SELFPAY | PROVIDERS: PCP Registered Nurse; Visit Provider Internal Medicine Rheumatology | DX: M05.79 Rheumatoid arthritis with rheumatoid factor of multiple sites without organ or systems involvement (principal); Z71.85 Encounter for immunization safety counseling; Z79.899 Other long term (current) drug therapy; M85.80 Other specified disorders of bone density and structure, unspecified site | CPT/HCPCS: 99214 ==

== ENCOUNTER 2023-03-04 15:15 | Oncology outpatient (recurring) (ONCR) | payer MEDICARE, MEDICAID, SELFPAY ==
[2023-03-04 14:02] LABS: Basophils % 0.7 %; Eosinophils # 0.2 10^3/uL (0.0-0.8); Hematocrit 43.2 % (37.0-47.0); Lymphocytes # 1.4 10^3/uL (0.8-4.8); Lymphocytes % 25.6 %; Mean Corpuscular HGB Conc 30.1 g/dL (30.0-36.0); Mean Corpuscular Hemoglobin 26.2 pg (28.0-34.0); Mean Corpuscular Volume 87.1 fl (81-99); Mean Platelet Volume 10.4 fL (7.4-10.4); Monocytes # 0.6 10^3/uL (0.2-0.9); Monocytes % 10.5 %; Neutrophils # 3.25 10^3/uL (1.8-7.7); Nucleated Red Blood Cells % 0 %; Platelet Count 278 10^3/cmm (130-400); Red Blood Count 4.96 10^6/uL (4.1-5.3); Red Cell Distribution Width 14.7 % (12.1-15.1); White Blood Count 5.4 10^3/uL (4.0-10.0)
[2023-03-04 14:18] LABS: Ferritin 108 ng/mL (15-150); Iron 37 ug/dL (37-145); Percent Saturation 14.5 % (20-50); Total Iron Binding Capacity 255 mcg/dl; Unsaturated Iron Binding 218 ug/dL (112-347)
[2023-03-04 14:34] LABS: Vitamin B12 384 pg/mL (232-1245)
== END 2023-03-05 23:59 | disposition home or self-care (01) ==
PROVIDERS: PCP Registered Nurse; Visit Provider Internal Medicine Hematology & Oncology
DX: D50.9 Iron deficiency anemia, unspecified (principal); I48.91 Unspecified atrial fibrillation; Z79.01 Long term (current) use of anticoagulants; Z79.899 Other long term (current) drug therapy
CPT/HCPCS: 36415; 82607; 82728; 83540; 83550; 85025; 99213

== ENCOUNTER 2023-03-06 06:00 | Outpatient (RCR) | payer MEDICARE, MEDICAID, SELFPAY | END 2023-04-04 23:59 | disposition home or self-care (01) | LOC: WPT 06:00 | PROVIDERS: PCP Registered Nurse; Visit Provider Internal Medicine Rheumatology | DX: M05.79 Rheumatoid arthritis with rheumatoid factor of multiple sites without organ or systems involvement (principal) | CPT/HCPCS: 97163 ==

== ENCOUNTER 2023-03-20 15:00 | Oncology outpatient (recurring) (ONCR) | payer MEDICARE, MEDICAID, SELFPAY ==
[2023-03-11 14:21] VITALS: BP 121/79; PULSE 52; RESP 18; TEMP 36.4; O2SAT 100
[2023-03-11] MEDS: denosumab 60 mg SDV SUBCUT (14:21)
[2023-03-20 15:22] LABS: Hematocrit 42.7 % (37.0-47.0); Hemoglobin 13.2 g/dL (11.5-15.3); Mean Corpuscular HGB Conc 30.9 g/dL (30.0-36.0); Mean Corpuscular Hemoglobin 26.8 pg (28.0-34.0); Mean Corpuscular Volume 86.6 fl (81-99); Platelet Count 239 10^3/cmm (130-400); Red Blood Count 4.93 10^6/uL (4.1-5.3); Red Cell Distribution Width 15.2 % (12.1-15.1); White Blood Count 3.4 10^3/uL (4.0-10.0)
[2023-03-20 15:40] LABS: Ferritin 180 ng/mL (15-150); Iron 29 ug/dL (37-145); Percent Saturation 12.8 % (20-50); Total Iron Binding Capacity 226 mcg/dl; Unsaturated Iron Binding 197 ug/dL (112-347)
[2023-03-20] MEDS: acetaminophen 325 mg Tablet 650 MG PO (15:43)
[2023-03-20] MEDS: diphenhydrAMINE 50 mg/mL SDV 1mL 25 MG IVP (15:46)
[2023-03-20] MEDS: dexamethasone 10 mg/mL INJ 6 MG IVP (15:54)
[2023-03-20 16:45] VITALS: BP 98/58; PULSE 50; RESP 18; TEMP 36.6; O2SAT 95
[2023-03-20 16:53] LABS: Absolute Segmented Neutrophil 1.4 10/cmm (1.6-7.1); Eosinophils 0 %; Lymphocytes 34 %; Monocytes Absolute 0.3 10^3/cmm (0.1-0.6); Segmented Neutrophils 41 %; Total Cells Counted 100 (0-100)
[2023-03-20 16:54] LABS: Absolute Neutrophil 1.4 10^3/cmm (1.4-6.5); Lymphocytes Absolute 1.7 10^3/cmm (1.2-3.4); Platelet Estimate Normal (Normal)
[2023-03-20 18:53] VITALS: BP 107/62; PULSE 57; RESP 18; TEMP 36.8; O2SAT 96
== END 2023-04-04 23:59 | disposition home or self-care (01) ==
PROVIDERS: Nurse Practitioner Family; PCP Registered Nurse; Visit Provider Internal Medicine Rheumatology
DX: D50.9 Iron deficiency anemia, unspecified (principal); D64.9 Anemia, unspecified
CPT/HCPCS: 82728; 83540; 83550; 85007; 85025; 96365; 96366; 96375; 96401; J0897; J1100; J1200; J7050; Q5121

== ENCOUNTER → 2023-04-01 14:49 | Outpatient (BNVA) | payer MEDICARE, MEDICAID, SELFPAY | PROVIDERS: PCP Registered Nurse; Visit Provider Internal Medicine | DX: I48.20 Chronic atrial fibrillation, unspecified (principal); Z79.01 Long term (current) use of anticoagulants | CPT/HCPCS: 99214 ==

== ENCOUNTER 2023-04-22 13:18 | Outpatient (CLI) | payer MEDICARE, MEDICAID, SELFPAY ==
--- NOTE | 2023-04-22 13:45 | USCV_ITS ---
Laila Maloeny Age: 67 Gender: F : 1955 Exam Date: 04/22/2023 14:25 Ordering Phys: Eitan Vivas M.D ([email or web address]) Technologist: MIRCALE Exam Location: [facility] [place] Indication: CHEST PAIN BP: 160 / 90 HR: 58 Rhythm: Sinus Technical Quality: Adequate MEASUREMENTS (Male / Female) Normal Values 2D ECHO LVOT Diameter 2.0 cm LV Ejection Fraction MOD 2C 61.1 % LV Ejection Fraction 2C AL 65.5 % LA Diameter 3.8 cm LA Width 3.4 cm LA Height 5.5 cm RA Width 4.0 cm RA Height 5.0 cm Aorta at Sinotubular Diameter 1.6 cm IVC Diameter 1.6 cm M-MODE Aortic Annulus Diameter 1.9 cm LA Ao Ratio MM 2.1 MV E Point Septal Separation 0.7 cm DOPPLER AV Peak Velocity 190.3 cm/s LVOT Peak Velocity 109.0 cm/s AV Area Cont Eq vti 1.4 cm squared AV Area Cont Eq pk 1.9 cm squared MV Peak Velocity 158.0 cm/s MV Area PHT 2.3 cm squared Mitral E to A Ratio 1.3 MV E' Velocity 77.0 cm/s Mitral E to MV E' Ratio 20.1 Mitral E to LV E' Lateral Ratio 19.9 Mitral E to LV E' Septal Ratio 20.4 TR Peak Velocity 202.1 cm/s TR Peak Gradient 16.3 mmHg TR Mean Velocity 153.2 cm/s TR Mean Gradient 10.1 mmHg TR Velocity Time Integral 42.4 cm Right Atrial Pressure 3.0 mmHg Pulmonary Artery Systolic Pressu 19.3 mmHg PV Peak Velocity 100.0 cm/s RV Acceleration Time 0.2 s RV Ejection Time 0.3 s RV AcT/ET 0.7 FINDINGS Left Ventricle Left ventricle is normal in size ventricular systolic function is normal with EF 55 to 60%. No regional wall motion abnormalities are seen. Right Ventricle Normal in size and function Right Atrium Normal in size Left Atrium Dilated Mitral Valve Moderate to severe mitral annular calcification is seen. Trace mitral regurgitation. Aortic Valve Aortic valve is calcified. Mild aortic stenosis with aortic valve area 1.4 cm. Mean gradient of 8 mmHg. Tricuspid Valve Mild tricuspid regurgitation. Pulmonary artery systolic pressure is normal. Pulmonic Valve Not well-visualized Pericardium Normal Aorta Normal in size IVC Appears to be normal CONCLUSIONS LV systolic function is normal with EF 55 to 60%. Left atrial dilation Trace mitral regurgitation. Mild aortic stenosis. Mild tricuspid regurgitation Compared to prior echocardiogram from 2020, mild aortic stenosis Eitan Vivas MD (Electronically Signed) Final Date: 10 May 2023 10:49 S
== END 2023-04-22 13:19 | disposition home or self-care (01) ==
LOC: RAD 13:19
PROVIDERS: PCP Registered Nurse; Visit Provider Internal Medicine
DX: R07.9 Chest pain, unspecified (principal); G45.8 Other transient cerebral ischemic attacks and related syndromes; I35.0 Nonrheumatic aortic (valve) stenosis; I07.1 Rheumatic tricuspid insufficiency
CPT/HCPCS: 93306

== ENCOUNTER 2023-05-12 07:06 | Outpatient (CLI) | payer MEDICARE, MEDICAID, SELFPAY ==
[2023-05-12 07:49] VITALS: BMI 32.2
--- NOTE | 2023-05-12 07:49 | ECG_ITS ---
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 Interpretive Statements NAME OF STUDY: LEXISCAN SESTAMIBI STRESS TEST INDICATION: [Chest Pain, ] Procedure: At the baseline, the blood pressure was 158/61mmHg with a heart rate of 57 bpm. The electrocardiogram showed atrial fibrillation, normal axis with normal ST and T's. The Lexiscan was infused over a period of 20 seconds. A total of 0.4 mg of Lexiscan was infused. The stress phase was continued for a total of 5 minutes. Heart rate was at the end of stress phase was 64 bpm and a blood pressure of 143/63 mmHg. The EKG at the peak infusion revealed atrial fibrillation with no significant ST-T wave changes. Sestamibi was injected 20 seconds after the Lexiscan infusion. Blood pressure at the end of recovery phase was one 140/64 mmHg with a heart rate of 65 bpm. Conclusion: 1. Normal EKG response to Lexiscan infusion 2. No Lexiscan induced chest pain or cardiac arrhythmia. 3. Normal blood pressure and heart rate response. 4. Sestamibi/sestamibi perfusion scan pending; see separate report. Electronically Signed On 05-27-2023 11:14:56 CDT by Eitan Vivas M.D. [id number]
--- NOTE | 2023-05-12 07:49 | NMCV_ITS ---
NM gianfranco perf SPECT r/s* [id number] Laila Maloney Age: 68 Gender: F : 1955 Exam Date: 05/12/2023 07:49 Ordering Phys: Eitan Vivas M.D ([email or web address]) Technologist: ELSIE Rizzo Exam Location: [facility] Indications: CHEST PAIN STRESS TEST Please see separate stress test report in [facility] for full findings IMAGE PROTOCOL Rest/Stress 1 Lexiscan Day Radiopharmaceutical Dose (mCi) Administration Site Administered by Rest: Tc-99m 10.6 IV ELSIE Chacon Sestamibi Stress:Tc-99m 32.4 IV ELSIE Chacon Sestamibi Rest: 12-May-2023 60 Discovery 630 Stress: 12-May-2023 30 Discovery 630 0.4mg Lexiscan. Supine position only as patient was unable to lay prone. SPECT RESULTS Technical Quality: Excellent Raw Data Analysis: Normal Image Corrections: No attenuation or motion correction applied Summed Stress Score: 3 Summed Rest Score: 0 Summed Difference Score: 3 PERFUSION FINDINGS There is a medium sized area of reversible perfusion defect noted in the inferolateral and lateral nova. This is consistent with medium sized area of ischemia noted in the left circumflex artery territory. FUNCTIONAL RESULTS (calculated via Gated SPECT) Stress Image LV EF (%): 80 Stress EDV (mL):60 TID: 0.91 Stress ESV (mL):12 FUNCTIONAL FINDINGS: There is normal left ventricular systolic function. IMPRESSIONS 1. Medium sized area of ischemia seen in left circumflex artery territory. 2. LV systolic function is normal. Eitan Vivas MD (Electronically Signed) Final Date: 12 May 2023 18:15 S
[2023-05-12] MEDS: regadenoson 0.4 Mg/5 ml Syringe IVP (09:06)
[2023-05-12 09:20] VITALS: BP 140/64; PULSE 64
== END 2023-05-12 07:07 | disposition home or self-care (01) ==
PROVIDERS: PCP Registered Nurse; Visit Provider Internal Medicine
DX: R07.9 Chest pain, unspecified (principal)
CPT/HCPCS: 36415; 78452; 93017; 96374; A9500; J2785

== ENCOUNTER 2023-06-06 08:59 | Observation (INO) | payer MEDICARE, MEDICAID, SELFPAY ==
[2023-06-06] VITALS (20 sets, daily range): BP systolic 121–157; BP diastolic 50–77; PULSE 52–90; RESP 14–27; TEMP 36.6; O2SAT 91–100; BMI 32.8
--- NOTE | 2023-06-06 05:00 | XACV_ITS ---
Exam Room: 2 Ht: 152 cm Wt: 76 kg BSA: 1.83 m2 Gender: Female : 1955 Any Known Allergies: Other Exam Priority: Routine Indication(s): - Dyspnea with exertion - Abnormal nuclear perfusion study Procedure(s): Procedure Description: Diagnostic procedure Procedure Description: Left Heart Catheterization Procedure Description: Left ventriculography Procedure Description: Miscellaneous Procedure Description: Angio-Seal Procedure Description: Coronary Angiography Diagnostic Cath Status: Elective Diagnostic Findings * INDICATION: 68-year-old woman with past medical history of A-fib fibrillation on Eliquis arthritis, carotid artery stenosis, subclavian artery stenosis was been having significant dyspnea on exertion. She had a stress test performed that showed ischemia in left circumflex artery territory. Plan for coronary angiogram with possible PCI. * Left Main has no significant disease. * Circumflex gives off a large OM 1 branch. OM1 does not have any significant disease however it gives off lower branches that have diffuse disease. 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 No significant disease seen. * Proximal Left Anterior Descending: mild 40% stenosis, HAILEE: 3 flow. * Coronary angiography shows left dominance. Conclusions 1. Non-obstructive coronary artery disease. 2. Normal left ventricular systolic function. Ejection fraction of 65%. Recommendations * Aggressive risk factor modification. * Outpatient cardiology follow up in 4 weeks. Interventional RX Recommendation: medical therapy and/or counseling Diagnostic RX Recommendation: medical therapy and/or counseling Ventriculography Ejection Fraction: 65.0 % Pressures Phase:Rest AO : 127 / 78 ( 103 ) @ 7:42:00 AM 139 / 75 ( 101 ) @ 7:45:00 AM 168 / 72 ( 113 ) @ 7:52:00 AM 170 / 74 ( 113 ) @ 7:52:00 AM LV : 154 / -1 / 25 @ 7:51:00 AM 158 / 3 / 27 @ 7:51:00 AM 162 / 0 / 27 @ 7:52:00 AM Valves Phase:DefaultPhase AV : 0.0 @ 7:44:27 AM AV Mean Gradient: 0.0 @ 7:44:27 AM 0.0 @ 7:44:27 AM Clinical Evaluation EBL: 5mL-10mL Procedural Details Procedure Consent Obtained. RT Rick(R) was relieved by Kathryn Aparicio RN as monitoring person. Admit Source: Out Patient. Pre-Procedure Time Out. Identified patient by full name and date of as verbalized by the patient/guarantor. Does the consent match the physician's order: Yes. Accurate & Complete Informed Consent: Yes. Inpatient/Outpatient History & Physical on Chart: Yes. If H&P is completed, is and addenduem needed: Yes; If yes, is the addendum complete: No. Visualize and Verify Site with Patient/Guarantor: N/A. Relevant Radiology Images available: Yes. The risks, benefits, and alternatives of sedation and/or procedure were discussed by physician. The patient agrees to continue. Procedure started. [facility] Clinical Fraility Score: 4: Vulnerable. Checker Indications: Dyspnea on exertion , abnormal stress test. Current diagnosis: Dyspnea on exertion, Abnormal stress test. PERRLA. Strong, equal hand glove cutter bilaterally. Lungs clear x 5 lobes. IV Site on Arrival: 20 gauge in the left anticubital. IV Fluids: 0.9% NaCl at 75ml/hr. 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 Pre Procedural Pulses: bilateral radial was 1+. Pre Procedural Pulses: bilateral dorsalis pedis was 3+. Pre Procedural Pulses: bilateral posterior tibial was Doppled. Oxygen started at 2liters/min via nasal canula. bilateral groins was prepped with chloroprep then draped in the usual sterile fashion. Baseline sample Acquired. HR: 61 BPM. Physician notified. Physician arrived. Physician scrubbed in. Immediate Pre-Procedure Time Out. Correct Patient: Yes; Correct Procedure: Yes; Correct Site: Yes; Correct Patient Position: Yes; Correct Supplies: Yes; Dried Flammable Prep: Yes; Blood Products Available: No;. Lidocaine 1% infiltrated to the right groin. Ultrasound obtained to assist with arterial access. Arterial access obtained with micropuncture set. A 5 gabonese JL4 catheter in over wire. Multiple views taken of left coronary artery. Catheter removed over the exchange wire. A 5 gabonese JR4 catheter in over wire. Multiple views taken of right coronary artery. Catheter removed over the standard wire. A 5 gabonese Angled Pig catheter in over wire. EDP Sample taken: LV 154/-2,25; HR: 53 BPM; SpO2: 97%. LV gram performed in GARCIA @ 10 mL/second for a total of 30 mL. Patient EF: Normal. EDP Sample taken: LV 158/3,27; HR: 55 BPM; SpO2: 97%. Pullback taken: LV 162/0,27; AO 168/72(113); Mean: 0mmHg, Peak to Peak: 0mmHg, SEP: 7sec/min; HR: 58 BPM; SpO2: 97%. Catheter removed over the wire. Physician review of films. A Right femoral angiogram was performed to determine safe placement of closure device. Sheath upsized to a 6 Fr. Angioseal EXP: 11/05/2023 Lot # [id number]. Angioseal did not insert correctly d/t wire kink. Removed as a whole by MD. Manual pressure held at the site. Scrub took over holding pressure for MD. Physician scrubbed out. Post Procedure: Pulses reassessed and unchanged. PERRLA. Strong, equal hand glove cutter bilaterally. No VTE prophylaxis required. Medication waste: Nitro- 50 mg; Heparin 1000 units; Fentanyl- 50 mcg. Total IV fluids: 55 mL. Fluoro: 2:09. Contrast type used: Omnipaque 300 mg/mL, 150 mL bottle. Omnipaque 97 ml. Post-op diagnosis: non obstuctive CAD. Complications: Hematoma. Estimated blood loss: 5mL-10mL. Responsiveness - Normal response to verbal stimuli; alert and oriented, PERRLA. Airway - Unaffected, no intervention required; spontaneous ventilation. Circulation: W/N/L, pulses unchanged. Nausea/Vomiting: No. MD updated pt and family of findings. Procedure completed. Patient transferred by bed to CT. Current Diagnosis : Chest Pain. Vital chart was stopped. Hematoma to right groin, manual compression and expression of hemtoma. Cat scan ordered to r/o retroperitoneal bleed. Vital chart was stopped. Access Site Site: Right Femoral artery Sheath Size: 5 Fr Hemostasis Method: Angio-Seal VIP ([facility]) Hemostasis Success: Successful Procedure Medications Start: 6:19 AM Stop: 6:19 AM Medication: Versed Amount: 1 mg Route: I.V. Start: 6:19 AM Stop: 6:19 AM Medication: Fentanyl Amount: 25 mcg Route: I.V. Start: 6:26 AM Stop: 6:26 AM Medication: Versed Amount: 1 mg Route: I.V. Start: 6:52 AM Stop: 6:52 AM Medication: Fentanyl Amount: 25 mcg Route: I.V. Start: 7:22 AM Stop: 7:22 AM Medication: Fentanyl Amount: 50 mcg Route: I.V. Start: 7:30 AM Stop: 7:30 AM Medication: Fentanyl Amount: 50 mcg Route: I.V. I, the attending physician, have reviewed and verified all procedure medications. Yes, all medications given per verbal order History/Risk Factors Hypertension: Yes Dyslipidemia: No Peripheral Arterial Disease (PAD): No Myocardial Infarction (KS): No Obesity: No Renal Disease: No Prior Interventions PCI: No CABG: No Valve Surgery: No Report Signatures Finalized by Eitan Vivas MD on 06/23/2023 08:52 AM
[2023-06-06 05:35] LABS: Basophils % 0.2 %; Eosinophils % 0.2 %; Hematocrit 47.1 % (36-47); Lymphocytes # 0.7 10^3/uL (0.8-4.8); Mean Corpuscular HGB Conc 29.9 g/dL (30-55); Mean Corpuscular Hemoglobin 25.4 pg (27-33); Mean Corpuscular Volume 84.9 fl (85-98); Mean Platelet Volume 10.4 fL (7.4-10.4); Monocytes # 0.1 10^3/uL (0.2-0.9); Monocytes % 1.3 %; Neutrophils # 5.16 10^3/uL (1.8-7.7); Nucleated Red Blood Cells % 0 %; Platelet Count 338 10^3/cmm (157-399); Red Blood Count 5.55 10^6/uL (3.85-5.65); Red Cell Distribution Width 14.8 % (12.1-15.1)
[2023-06-06 05:52] LABS: Anion Gap 16.6 (5-19); Blood Urea Nitrogen 22 mg/dL (8-23); Calcium 9.3 mg/dL (8.5-10.5); Carbon Dioxide 24 mmol/L (22-29); Chloride 103 mmol/L (98-107); Glomerular Filtration Rate 82.7 mL/min (90-130); Glucose 145 mg/dL (65-115); Osmolality Calculated 294 mOsm/kg (285-295); Potassium 4.6 mmol/L (3.5-5.1); Sodium 139 mmol/L (136-145)
--- NOTE | 2023-06-06 06:18 | P.HP_ITS ---
Same Day Surgery H&P Indication for Procedure/HPI DATE OF PROCEDURE: June 06, 2023 CHIEF COMPLAINT/INDICATIONFOR SURGICAL PROCEDURE: Dyspnea on exertion/abnormal stress test PREOP DIAGNOSIS: Dyspnea on exertion/abnormal stress test PLANNED PROCEDURE: Operation Date: 06/06/23 06:00 Proposed Procedures p [facility] 97623,R94.39(Left) - Eitan Vivas M.D Possible percutaneous coronary intervention 68-year-old woman with past medical history of A-fib fibrillation on Eliquis arthritis, carotid artery stenosis, subclavian artery stenosis was been having significant dyspnea on exertion. She had a stress test performed that showed ischemia in left circumflex artery territory. Plan for coronary angiogram with possible PCI Medications/Allergies* Home Medications Medication Instructions Recorded Confirmed Type acetaminophen 500 mg capsule 1,000 mg PO Q6H PRN pain 10/19/19 06/05/23 History cyclosporine 0.05 % eye drops in a 1 drop ophthalmic (eye) Q12H 10/19/19 06/04/23 History dropperette (Restasis) loratadine 10 mg tablet 10 mg PO DAILY 10/19/19 06/04/23 History ipratropium 20 mcg-albuterol 100 2 puff inhalation TID shortness of 07/04/22 06/04/23 History mcg/actuation mist for inhalation breath or wheezing (Combivent Respimat) Infusion for RA IV 04/01/23 04/01/23 History duloxetine 30 mg capsule,delayed 30 mg PO DAILY 06/05/23 06/05/23 History release metoprolol tartrate 25 mg tablet 25 mg PO BEDTIME 06/05/23 06/05/23 History Allergies/Adverse Reactions Allergy/AdvReac Type Severity Reaction Status Date / Time aspirin Allergy Unknown stomach Verified 04/01/23 08:50 bleeding digoxin Allergy Unknown Unknown Verified 04/01/23 08:50 influenza virus vaccine, Allergy Unknown Unknown Verified 04/01/23 08:50 specific shellfish derived Allergy Unknown throat Verified 04/01/23 08:50 swells Sulfa (Sulfonamide Allergy Unknown rash Verified 04/01/23 08:50 Antibiotics) monosodium glutamate Allergy ADR-Dizzine Verified 04/01/23 08:50 ss Pertinent History/Comorbid Conditions* Medical History (Updated 02/20/23 @ 15:05 by Jorje Teixeira MD) Anemia Anticoagulated by anticoagulation treatment Anticoagulation adequate Atrial fibrillation Atrial flutter Carotid stenosis, bilateral CHF (congestive heart failure) Chronic headaches Chronic kidney disease (CKD) Single kidney COPD (chronic obstructive pulmonary disease) COPD, mild CVA (cerebral vascular accident) Depression Esophagitis Essential hypertension External hemorrhoid Gastric erosion Gastritis Hepatitis B High risk medication use Immunization counseling Iron deficiency anemia MVP (mitral valve prolapse) LUKE (obstructive sleep apnea) Osteopenia after menopause Pleural effusion, right Renal failure Rheumatoid arthritis Rheumatoid arthritis with rheumatoid factor Seropositive rheumatoid arthritis of multiple sites Surgical History (Updated 11/20/21 @ 15:23 by Aaron Issa MD) History of appendectomy 1975 History of colonoscopy with polypectomy 2014 History of esophagogastroduodenoscopy (EGD) 1994 History of hysterectomy 1980 History of left knee replacement History of lung surgery 2019 History of thoracentesis History of thoracic surgery 2011 S/P cataract extraction S/P D&C (status post dilation and curettage) S/P knee replacement S/P rotator cuff repair Family History (Updated 10/19/19 @ 09:54 by Jolly Witt RN) Diabetes Grandmother CAD (coronary artery disease) Mother Father Brother Sister Grandfather Grandmother Chronic kidney disease (CKD) Lung disease Cancer Father Hypertension Mother Father Brother Sister Daughter Stroke Father Grandmother Social History Smoking and tobacco status: never smoked Alcohol intake: never Substance/Drug Use: never Lives independently: Yes Household members: significant other Marital status: service: No Current occupational status: retired Current gender identity: Female 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: L[employer] Pertinent Exam Findings alert, oriented x 3, clear to auscultation bilaterally and regular rate & rhythm Conscious Sedation Assessment PATIENT ASSESSED PRIOR TO SEDATION, WITH NO CHANGE NOTED: Yes AIRWAY EVAL/ANESTHESIA PLAN: normal airway, ASA III, Local Anesthesia, Risks, benefits & alternatives of sedation and/or procedure discussed and Patient agrees to continue as planned Recommendations Surgery/Procedure today (Left heart cath with possible percutaneous coronary intervention) Coding Level of Care Code Acute Code for Chg Fwd Diagnoses
--- NOTE | 2023-06-06 07:25 | CT_ITS ---
WS: [id number] CT ABDOMEN AND PELVIS WITH CONTRAST HISTORY: R/O RETROPERITONEAL BLEED TECHNIQUE: Imaging performed of the abdomen and pelvis with IV contrast. Single phase imaging of the abdomen. Coronal and sagittal reformats are submitted. All CT scans at [facility] [place] use at [address] one of these dose optimization techniques: automated exposure control; mA and/or kV adjustment per patient size (includes targeted exams where dose is matched to clinical indication); or iterative re construction. IV CONTRAST: Omnipaque 350; 100 mL IV. Oral contrast: Yes. DLP: COMPARISON: None available. Lower thorax: Mild pleural thickening and a very small RIGHT pleural effusion. Mild compressive atele ctasis at the lung bases. Enhancement within the pleura surrounding the very small RIGHT pleural effu millicent. Moderate cardiomegaly large hiatal hernia. Liver/biliary system: Normal size with no intrahepatic dilatation. Gallbladder: Cholelithiasis without acute cholecystitis. Pancreas: Pancreatic atrophy. Spleen: Normal size spleen. No mass or infarct. Adrenal glands: Normal. Right kidney: Severe atrophy RIGHT kidney. There is still a small amount of parenchymal enhancement. No excretion from the kidney. Left kidney: Normal size kidney. Ureteral opacification due to the recent cardiac catheterization con trast that was injected. Aorta: Mild atherosclerosis aorta and common iliac arteries. Lymphadenopathy: None. Free fluid: None. GI tract: No obstruction. Abdominal wall: There is an acute soft tissue hematoma centered in the subcutaneous soft tissues of t he RIGHT lateral pelvis extending over a length of 18 cm. There is an additional retroperitoneal alejandro christian extending from the RIGHT inguinal region. There is active extravasation from the femoral artery. Patient undergone a recent cardiac catheterization. The retroperitoneal hematoma is adjacent to the iliacus and psoas muscles but not extending into the muscles. Retroperitoneal hematoma extends over a length of 14 cm. Pelvis: Well distended urinary bladder. Bones: T12 prior vertebroplasty. IMPRESSION: 1. Acute RIGHT retroperitoneal and RIGHT subcutaneous hematomas associated with the recent cardiac c atheterization. These are large hematomas with active extravasation from the RIGHT femoral artery. 2. Cholelithiasis. 3. Severe atrophy RIGHT kidney. Notified Eitan Vivas M.D at 06/06/2023 8 AM.
[2023-06-06] MEDS: iohexol 350 mg/mL 500 mL Btl (per mL) IV (08:21)
[2023-06-06] MEDS: duloxetine 30 mg Capsule PO (09:32)
[2023-06-06] MEDS: loratadine 10 mg Tablet PO (09:32)
[2023-06-06] MEDS: pantoprazole DR 40 mg Tablet PO (09:32)
[2023-06-06] MEDS: topiramate 25 mg Tablet PO (09:36)
[2023-06-06] MEDS: albuterol 2.5 mg/3 mL Neb INHALATION ×3 (11:53→20:27)
--- NOTE | 2023-06-06 14:00 | CT_ITS ---
WS: [id number] CT ABDOMEN AND PELVIS NONCONTRAST HISTORY: Hematoma TECHNIQUE: Imaging performed through the abdomen and pelvis. Coronal and sagittal reformats are submi tted. All CT scans at [facility] use at least one of these dose optimization techniques: auto mated exposure control; mA and/or kV adjustment per patient size (includes targeted exams where dose is matched to clinical indication); or iterative reconstruction. DLP: 831.58 mGy.cm COMPARISON: Similar study earlier the same day. Mild dependent changes at the lung bases. No interval change in the fluid collection at the RIGHT prem g base. Recently described RIGHT pelvic and retroperitoneal hematoma has slightly slightly decreased in size since the prior study earlier the same day. Both the consolidation and hematoma in the subcutaneous s oft tissues and along the RIGHT paracolic gutter have slightly improved. There is very slight mass ef fect upon the RIGHT lateral bladder. Otherwise no change. IMPRESSION: 1. Slight decrease in size of the RIGHT pelvis subcutaneous soft tissue hematoma and the retroperito el hematoma since earlier the same day. 2. Otherwise no change. Notified Eitan Vivas M.D at 06/06/2023 2:25 PM. Was unable to reach Dr. Vivas at this time.
--- NOTE | 2023-06-06 15:59 | PM.MISC ---
Miscellaneous Note Purpose of Documentation: EVENT NOTE Note: Patient underwent coronary angiogram today. It showed non-obstructive CAD. Post-procedure, right femoral artery sheath was pulled and pressure was held. Patient complained of abdominal discomfort during the sheath pull. I examined her and she had developed a hematoma that was extending to the abdominal wall. She had significant discomfort. She stayed hemodynamically stable. Pressure was held for over 30 minutes. We then moved her to radiology and obtained a CTA. It showed large hematoma with retroperitoneal extension. As patient was hemodynamically stable and hematoma was improving, we observed patient. We will observe patient overnight. Will obtain CT scan in 8 hours to compare the hematoma size. Continue IV fluids Transferred to ICU
[2023-06-06] MEDS: sodium chloride 0.9% 1,000 ML 100 ML IV (19:38)
[2023-06-06] MEDS: budesonide 0.5 mg/2 mL Neb INHALATION (20:27)
[2023-06-06] MEDS: metoprolol tartrate 25 mg Tablet PO (20:37)
[2023-06-07] VITALS (45 sets, daily range): BP systolic 104–193; BP diastolic 43–90; PULSE 48–64; RESP 13–26; TEMP 36.6; O2SAT 84–99
[2023-06-07 04:34] LABS: Basophils % 0.1 %; Eosinophils % 0.3 %; Lymphocytes % 21.7 %; Mean Corpuscular HGB Conc 29.4 g/dL (30-55); Mean Corpuscular Hemoglobin 25.4 pg (27-33); Mean Corpuscular Volume 86.3 fl (85-98); Monocytes # 0.8 10^3/uL (0.2-0.9); Monocytes % 9.2 %; Neutrophils # 6.15 10^3/uL (1.8-7.7); Neutrophils % 68.4 %; Nucleated Red Blood Cells % 0 %; Platelet Count 266 10^3/cmm (157-399); Red Blood Count 4.17 10^6/uL (3.85-5.65); Red Cell Distribution Width 15.2 % (12.1-15.1)
[2023-06-07] MEDS: sodium chloride 0.9% 1,000 ML 100 ML IV (04:50)
[2023-06-07 05:00] LABS: Anion Gap 10.9 (5-19); Blood Urea Nitrogen 20 mg/dL (8-23); Calcium 8.4 mg/dL (8.5-10.5); Carbon Dioxide 26 mmol/L (22-29); Chloride 106 mmol/L (98-107); Glomerular Filtration Rate 70.9 mL/min (90-130); Glucose 122 mg/dL (65-115); Osmolality Calculated 292 mOsm/kg (285-295); Potassium 3.9 mmol/L (3.5-5.1); Sodium 139 mmol/L (136-145)
[2023-06-07] MEDS: FUROsemide 20 mg Tablet 10 MG PO (06:09)
[2023-06-07] MEDS: budesonide 0.5 mg/2 mL Neb INHALATION (07:39)
[2023-06-07] MEDS: albuterol 2.5 mg/3 mL Neb INHALATION ×2 (07:39→11:27)
[2023-06-07] MEDS: pantoprazole DR 40 mg Tablet PO (08:10)
[2023-06-07] MEDS: duloxetine 30 mg Capsule PO (08:10)
[2023-06-07] MEDS: loratadine 10 mg Tablet PO (08:10)
--- NOTE | 2023-06-07 14:32 | PC.NURSE ---
Patient received discharge orders. All information reviewed with patient and explained activity restrictions. All IVs removed. Patient verbalized understanding.
--- NOTE | 2023-06-07 14:34 | PC.NURSE ---
Unable to make follow up appointments, due to holiday weekend and offices are closed. Will refer patient to arrange follow up appointments.
--- NOTE | 2023-06-07 15:30 | PM.PN ---
Subjective Subjective: Hematoma right femoral cardiac cath site improved. Vitals/I&O/Wt Last Vital Signs Temp 97.9 F 06/07/23 12:42 Pulse 62 06/07/23 12:42 Resp 16 06/07/23 12:42 BP 135/53 06/07/23 12:42 Pulse Ox 96 06/07/23 12:42 O2 Del Method Room Air 06/07/23 11:25 06/07/23 06/07/23 06/07/23 06:59 14:59 22:59 Intake Total 920 / 1400 1600 / 1600 Balance 920 / 1400 1600 / 1600 Weight last 48 hrs Weight 168 lb Data 06/07/23 04:02 06/07/23 04:02 A&P Assessment and plan (1) Hematoma complicating a procedure: Plan Discharge home. Hold Eliquis 48 hours. Attestations Medical Necessity Statement*: Femoral cath site hematoma Coding Level of Care Code 36947 Diagnoses Hematoma complicating a procedure
--- NOTE | 2023-06-07 17:03 | PC.NURSE ---
Patient exited to main exit via w/c with family at 1702.
== END 2023-06-07 17:02 | disposition home or self-care (01) ==
LOC: ICU 09:12
PROVIDERS: Admitting Provider Internal Medicine; PCP Registered Nurse; Visit Provider Internal Medicine
DX: I25.10 Atherosclerotic heart disease of native coronary artery without angina pectoris (principal); L76.32 Postprocedural hematoma of skin and subcutaneous tissue following other procedure; I48.91 Unspecified atrial fibrillation; Z79.01 Long term (current) use of anticoagulants; I50.9 Heart failure, unspecified; I13.0 Hypertensive heart and chronic kidney disease with heart failure and stage 1 through stage 4 chronic kidney disease, or unspecified chronic kidney disease; N18.9 Chronic kidney disease, unspecified; J44.9 Chronic obstructive pulmonary disease, unspecified; G47.33 Obstructive sleep apnea (adult) (pediatric); M06.9 Rheumatoid arthritis, unspecified
CPT/HCPCS: 36415; 74176; 74177; 80048; 85025; 93458; 94640; 96361; 96365; 99152; 99153; C1769; C1887; C1894; G0378; J1644; J2250; J3010; J3490; J7030; J7613; J7626; Q9967

== ENCOUNTER 2023-06-30 08:00 | Oncology outpatient (recurring) (ONCR) | payer MEDICARE, MEDICAID, SELFPAY ==
[2023-06-10 10:33] LABS: Basophils % 0.4 %; Eosinophils # 0.2 10^3/uL (0.0-0.8); Hematocrit 39.4 % (36-47); Lymphocytes # 0.5 10^3/uL (0.8-4.8); Lymphocytes % 6.5 %; Mean Corpuscular HGB Conc 30.2 g/dL (30-55); Mean Corpuscular Hemoglobin 25.4 pg (27-33); Mean Corpuscular Volume 84.2 fl (85-98); Mean Platelet Volume 10.9 fL (7.4-10.4); Monocytes # 0.3 10^3/uL (0.2-0.9); Neutrophils # 7.08 10^3/uL (1.8-7.7); Neutrophils % 86.6 %; Nucleated Red Blood Cells % 0 %; Platelet Count 263 10^3/cmm (157-399); Red Blood Count 4.68 10^6/uL (3.85-5.65); Red Cell Distribution Width 15.4 % (12.1-15.1); White Blood Count 8.17 10^3/uL (3.29-11.43)
[2023-06-10 11:03] LABS: Ferritin 44 ng/mL (15-150); Iron 43 ug/dL (37-145); Percent Saturation 15.5 % (20-50); Total Iron Binding Capacity 276 mcg/dl; Unsaturated Iron Binding 233 ug/dL (112-347)
[2023-06-10 14:00] LABS: Vitamin B12 338 pg/mL (232-1245)
[2023-06-13 09:15] VITALS: BP 141/66; PULSE 56; RESP 18; TEMP 36; O2SAT 97
[2023-06-13] MEDS: iron sucrose 200 MG in sodium chloride 0.9% (100 ml) 100 ML 220 MG IV (09:41)
[2023-06-13 10:22] VITALS: BP 149/66; PULSE 69; RESP 18; TEMP 36.2; O2SAT 96
[2023-06-16 14:30] VITALS: BP 121/59; PULSE 59; RESP 16; TEMP 36.8; O2SAT 92
[2023-06-16] MEDS: iron sucrose 200 MG in sodium chloride 0.9% (100 ml) 100 ML 220 MG IV (14:56)
[2023-06-16] MEDS: sodium chloride 0.9% 250 ML 75 ML IV (14:56)
[2023-06-16 15:35] VITALS: BP 100/56; PULSE 70; RESP 16; TEMP 36.1; O2SAT 96
[2023-06-18] MEDS: sodium chloride 0.9% 250 ML 75 ML IV (15:36)
[2023-06-18] MEDS: iron sucrose 200 MG in sodium chloride 0.9% (100 ml) 100 ML 220 MG IV (15:36)
[2023-06-18 15:41] VITALS: BP 135/68; PULSE 60; RESP 18; TEMP 36.1
[2023-06-20 08:00] VITALS: BP 164/64; PULSE 57; RESP 16; TEMP 37; O2SAT 97
[2023-06-20] MEDS: iron sucrose 200 MG in sodium chloride 0.9% (100 ml) 100 ML 220 MG IV (08:32)
[2023-06-20 09:15] VITALS: BP 123/69; PULSE 59; RESP 17; TEMP 36.7; O2SAT 99
[2023-06-23] MEDS: iron sucrose 200 MG in sodium chloride 0.9% (100 ml) 100 ML 220 MG IV (15:40)
[2023-06-23 16:10] VITALS: BP 122/58; PULSE 64; RESP 16; TEMP 36.7; O2SAT 94
[2023-06-30] VITALS (8 sets, daily range): BP systolic 118–169; BP diastolic 51–88; PULSE 49–57; RESP 16–18; TEMP 35.8–36.3; O2SAT 94–99
[2023-06-30] MEDS: sodium chloride 0.9% 250 ML 100 ML IV (08:57)
[2023-06-30] MEDS: diphenhydrAMINE 50 mg/mL SDV 1mL 25 MG IVP (08:58)
[2023-06-30] MEDS: acetaminophen 325 mg Tablet 650 MG PO (08:59)
--- NOTE | 2023-06-30 10:40 | PC.NURSE ---
patient did not come back for the 2 other appointments for the induction period of therapy. She states that her doctor is aware and was told to continue therapy.
== END 2023-07-05 23:59 | disposition home or self-care (01) ==
PROVIDERS: Internal Medicine Medical Oncology; Nurse Practitioner Family; PCP Registered Nurse; Visit Provider Internal Medicine Rheumatology
DX: M05.9 Rheumatoid arthritis with rheumatoid factor, unspecified (principal)
CPT/HCPCS: 36415; 82607; 82728; 83540; 83550; 85025; 96365; 96366; 96375; 99215; J1200; J1756; J7050; Q5121

== ENCOUNTER → 2023-07-15 15:46 | Outpatient (BNVA) | payer MEDICARE, MEDICAID, SELFPAY | PROVIDERS: PCP Registered Nurse; Visit Provider Internal Medicine | DX: I48.20 Chronic atrial fibrillation, unspecified (principal); Z79.01 Long term (current) use of anticoagulants | CPT/HCPCS: 99214 ==

== ENCOUNTER → 2023-07-22 13:24 | Outpatient (BNVA) | payer MEDICARE, MEDICAID, SELFPAY | PROVIDERS: PCP Registered Nurse; Visit Provider Thoracic Surgery (Cardiothoracic Vascular Surgery) | DX: G45.8 Other transient cerebral ischemic attacks and related syndromes (principal); M05.79 Rheumatoid arthritis with rheumatoid factor of multiple sites without organ or systems involvement; Z71.85 Encounter for immunization safety counseling; Z79.899 Other long term (current) drug therapy; M85.80 Other specified disorders of bone density and structure, unspecified site | CPT/HCPCS: 99213; 99214 ==

== ENCOUNTER 2023-09-02 13:45 | Oncology outpatient (recurring) (ONCR) | payer MEDICARE, MEDICAID, SELFPAY ==
[2023-08-11] VITALS (8 sets, daily range): BP systolic 118–145; BP diastolic 68–86; PULSE 51–65; RESP 16; TEMP 36.5–37; O2SAT 95–99
[2023-08-11] MEDS: diphenhydrAMINE 50 mg/mL SDV 1mL 25 MG IVP (13:15)
[2023-08-11] MEDS: acetaminophen 325 mg Tablet 650 MG PO (13:15)
[2023-08-11] MEDS: sodium chloride 0.9% 250 ML 75 ML IV (13:15)
[2023-08-11] MEDS: methylPREDNISolone sod succ 40 mg SDV IVP (13:18)
[2023-08-11 13:27] LABS: Basophils % 0.5 %; Eosinophils # 0.1 10^3/uL (0.0-0.8); Eosinophils % 1.5 %; Hematocrit 46.3 % (36-47); Lymphocytes % 31.9 %; Mean Corpuscular HGB Conc 30.9 g/dL (30-55); Mean Corpuscular Hemoglobin 26.5 pg (27-33); Mean Corpuscular Volume 85.7 fl (85-98); Monocytes # 0.5 10^3/uL (0.2-0.9); Monocytes % 8.5 %; Neutrophils # 3.54 10^3/uL (1.8-7.7); Neutrophils % 57.4 %; Nucleated Red Blood Cells % 0 %; Platelet Count 284 10^3/cmm (157-399); Red Cell Distribution Width 16.7 % (12.1-15.1); White Blood Count 6.15 10^3/uL (3.29-11.43)
[2023-08-11 13:49] LABS: Alanine Aminotransferase 7 U/L (0-33); Albumin Level 4.2 g/dL (3.5-5.2); Alkaline Phosphatase 76 U/L (35-105); C Reactive Protein 46.3 mg/L (0.0-4.9); Globulin 3.6 g/dL (1.3-4.6); Glomerular Filtration Rate 70.9 mL/min (90-130); Total Bilirubin 0.7 mg/dL (0.15-1.2); Total Protein 7.8 g/dL (6.6-8.7)
[2023-08-11 13:56] LABS: Aspartate Amino Transferase 22 U/L (0-32)
[2023-08-11 13:59] LABS: Erythrocyte Sedimentation Rate 60 mm/hr (0-15)
[2023-09-02 12:04] VITALS: PULSE 57; RESP 16; TEMP 36.6; O2SAT 94
[2023-09-02 12:25] LABS: Basophils % 0.5 %; Eosinophils # 0.1 10^3/uL (0.0-0.8); Eosinophils % 3.8 %; Hematocrit 41.8 % (36-47); Lymphocytes # 1.1 10^3/uL (0.8-4.8); Lymphocytes % 30.1 %; Mean Corpuscular HGB Conc 30.6 g/dL (30-55); Mean Corpuscular Hemoglobin 26.8 pg (27-33); Mean Corpuscular Volume 87.4 fl (85-98); Mean Platelet Volume 9.3 fL (7.4-10.4); Monocytes # 0.4 10^3/uL (0.2-0.9); Monocytes % 9.5 %; Neutrophils # 2.06 10^3/uL (1.8-7.7); Neutrophils % 55.8 %; Nucleated Red Blood Cells % 0 %; Platelet Count 314 10^3/cmm (157-399); Red Blood Count 4.78 10^6/uL (3.85-5.65); Red Cell Distribution Width 16.2 % (12.1-15.1); White Blood Count 3.69 10^3/uL (3.29-11.43)
[2023-09-02 12:46] LABS: Ferritin 302 ng/mL (15-150); Iron 24 ug/dL (37-145); Total Iron Binding Capacity 239 mcg/dl; Unsaturated Iron Binding 215 ug/dL (112-347)
[2023-09-02 14:36] LABS: Vitamin B12 343 pg/mL (232-1245)
[2023-09-05 16:38] LABS: Methylmalonic Acid 568 nmol/L (87-318)
[2023-09-05 17:14] LABS: Intrinsic Factor Blocking AB NEGATIVE
== END 2023-09-04 23:59 | disposition home or self-care (01) ==
PROVIDERS: Internal Medicine Medical Oncology; PCP Registered Nurse; Visit Provider Internal Medicine Rheumatology
DX: D50.9 Iron deficiency anemia, unspecified (principal)
CPT/HCPCS: 36415; 80076; 82565; 82607; 82728; 83540; 83550; 83921; 85025; 85651; 86140; 86340; 96365; 96366; 96376; J1200; J2920; J7050; Q5121

== ENCOUNTER 2023-09-22 13:19 | Oncology outpatient (recurring) (ONCR) | payer MEDICARE, MEDICAID, SELFPAY ==
[2023-09-22] VITALS (7 sets, daily range): BP systolic 138–177; BP diastolic 73–88; PULSE 52–62; RESP 16–18; TEMP 35.9–36.8; O2SAT 95–100
[2023-09-22 14:07] LABS: Basophils % 0.6 %; Eosinophils # 0.1 10^3/uL (0.0-0.8); Eosinophils % 1.2 %; Hematocrit 45.8 % (36-47); Lymphocytes # 1.2 10^3/uL (0.8-4.8); Lymphocytes % 18.2 %; Mean Corpuscular HGB Conc 30.8 g/dL (30-55); Mean Corpuscular Hemoglobin 26.9 pg (27-33); Mean Corpuscular Volume 87.4 fl (85-98); Mean Platelet Volume 10.5 fL (7.4-10.4); Monocytes # 0.5 10^3/uL (0.2-0.9); Monocytes % 7.8 %; Neutrophils # 4.71 10^3/uL (1.8-7.7); Nucleated Red Blood Cells % 0 %; Platelet Count 281 10^3/cmm (157-399); Red Blood Count 5.24 10^6/uL (3.85-5.65); Red Cell Distribution Width 15.6 % (12.1-15.1); White Blood Count 6.54 10^3/uL (3.29-11.43)
[2023-09-22 14:28] LABS: Erythrocyte Sedimentation Rate 70 mm/hr (0-15)
[2023-09-22] MEDS: methylPREDNISolone sod succ 40 mg/mL INJ IVP (14:44)
[2023-09-22] MEDS: diphenhydrAMINE 50 mg/mL SDV 1mL 25 MG IVP (14:44)
[2023-09-22] MEDS: sodium chloride 0.9% 250 ML 75 ML IV (14:44)
[2023-09-22] MEDS: acetaminophen 325 mg Tablet 650 MG PO (14:45)
[2023-09-22 15:53] LABS: Alanine Aminotransferase 8 U/L (0-33); Albumin Level 3.9 g/dL (3.5-5.2); Alkaline Phosphatase 91 U/L (35-105); Anion Gap 16.2 (5-19); Aspartate Amino Transferase 15 U/L (0-32); Blood Urea Nitrogen 17 mg/dL (8-23); C Reactive Protein 15.7 mg/L (0.0-4.9); Calcium 9.2 mg/dL (8.5-10.5); Carbon Dioxide 26 mmol/L (22-29); Chloride 101 mmol/L (98-107); Ferritin 236 ng/mL (15-150); Globulin 3.8 g/dL (1.3-4.6); Glomerular Filtration Rate 82.7 mL/min (90-130); Glucose 80 mg/dL (65-115); Iron 44 ug/dL (37-145); Lactate Dehydrogenase 175 U/L (135-214); Osmolality Calculated 289 mOsm/kg (285-295); Percent Saturation 16.9 % (20-50); Potassium 4.2 mmol/L (3.5-5.1); Sodium 139 mmol/L (136-145); Total Bilirubin 1.2 mg/dL (0.15-1.2); Total Iron Binding Capacity 259 mcg/dl; Total Protein 7.7 g/dL (6.6-8.7); Unsaturated Iron Binding 215 ug/dL (112-347)
[2023-09-22 16:09] LABS: Vitamin B12 347 pg/mL (232-1245)
[2023-09-22 16:13] LABS: Folate Level 7.9 ng/mL (4.8-37.3)
== END 2023-10-05 23:59 | disposition home or self-care (01) ==
PROVIDERS: Internal Medicine Medical Oncology; PCP Registered Nurse; Visit Provider Internal Medicine Rheumatology
DX: D50.9 Iron deficiency anemia, unspecified (principal); M85.80 Other specified disorders of bone density and structure, unspecified site; M05.9 Rheumatoid arthritis with rheumatoid factor, unspecified
CPT/HCPCS: 80053; 82607; 82728; 82746; 83540; 83550; 83615; 85025; 85651; 86140; 96365; 96366; 96375; J1200; J2920; J7050; Q5121

== ENCOUNTER → 2023-10-01 14:34 | Outpatient (BNVA) | payer MEDICARE, MEDICAID, SELFPAY | PROVIDERS: PCP Registered Nurse; Visit Provider Internal Medicine | DX: I48.20 Chronic atrial fibrillation, unspecified (principal); I65.23 Occlusion and stenosis of bilateral carotid arteries; I12.9 Hypertensive chronic kidney disease with stage 1 through stage 4 chronic kidney disease, or unspecified chronic kidney disease; N18.9 Chronic kidney disease, unspecified; Z79.01 Long term (current) use of anticoagulants | CPT/HCPCS: 99214 ==

== ENCOUNTER → 2023-10-16 10:00 | Outpatient (BNVA) | payer MEDICARE, MEDICAID, SELFPAY | PROVIDERS: PCP Registered Nurse; Visit Provider Thoracic Surgery (Cardiothoracic Vascular Surgery) | DX: I65.23 Occlusion and stenosis of bilateral carotid arteries (principal); I13.0 Hypertensive heart and chronic kidney disease with heart failure and stage 1 through stage 4 chronic kidney disease, or unspecified chronic kidney disease; N18.9 Chronic kidney disease, unspecified; I50.9 Heart failure, unspecified | CPT/HCPCS: 99213 ==

== ENCOUNTER 2023-11-03 14:30 | Oncology outpatient (recurring) (ONCR) | payer MEDICARE, MEDICAID, SELFPAY ==
[2023-10-29 15:19] LABS: Basophils % 0.5 %; Eosinophils # 0.2 10^3/uL (0.0-0.8); Eosinophils % 2.7 %; Hematocrit 46.5 % (36-47); Lymphocytes # 1.4 10^3/uL (0.8-4.8); Lymphocytes % 25.2 %; Mean Corpuscular HGB Conc 31.4 g/dL (30-55); Mean Corpuscular Hemoglobin 26.8 pg (27-33); Mean Corpuscular Volume 85.5 fl (85-98); Monocytes # 0.5 10^3/uL (0.2-0.9); Monocytes % 8.5 %; Neutrophils # 3.49 10^3/uL (1.8-7.7); Neutrophils % 62.7 %; Nucleated Red Blood Cells % 0 %; Platelet Count 306 10^3/cmm (157-399); Red Blood Count 5.44 10^6/uL (3.85-5.65); Red Cell Distribution Width 14.3 % (12.1-15.1); White Blood Count 5.56 10^3/uL (3.29-11.43)
[2023-10-29 15:39] LABS: Erythrocyte Sedimentation Rate 75 mm/hr (0-15)
[2023-10-29 15:41] LABS: Alanine Aminotransferase 7 U/L (0-33); Alkaline Phosphatase 102 U/L (35-105); Anion Gap 14.8 (5-19); Aspartate Amino Transferase 14 U/L (0-32); Blood Urea Nitrogen 12 mg/dL (8-23); C Reactive Protein 34.9 mg/L (0.0-4.9); Calcium 9.3 mg/dL (8.5-10.5); Carbon Dioxide 28 mmol/L (22-29); Chloride 100 mmol/L (98-107); Ferritin 246 ng/mL (15-150); Globulin 4.2 g/dL (1.3-4.6); Glomerular Filtration Rate 98.8 mL/min (90-130); Glucose 97 mg/dL (65-115); Iron 31 ug/dL (37-145); Lactate Dehydrogenase 168 U/L (135-214); Osmolality Calculated 288 mOsm/kg (285-295); Percent Saturation 11.7 % (20-50); Potassium 3.8 mmol/L (3.5-5.1); Sodium 139 mmol/L (136-145); Total Bilirubin 1.1 mg/dL (0.15-1.2); Total Iron Binding Capacity 263 mcg/dl; Total Protein 8.2 g/dL (6.6-8.7); Unsaturated Iron Binding 232 ug/dL (112-347)
[2023-10-29 15:57] LABS: Vitamin B12 277 pg/mL (232-1245)
[2023-10-29 16:08] LABS: Folate Level 7.2 ng/mL (4.8-37.3)
[2023-10-31 17:04] LABS: Copper Level 136 mcg/dL (70-175)
[2023-11-01 09:38] LABS: Methylmalonic Acid 783 nmol/L (87-318)
[2023-11-03] MEDS: sodium chloride 0.9% 250 ML 75 ML IV (14:57)
[2023-11-03] MEDS: acetaminophen 325 mg Tablet 650 MG PO (14:59)
[2023-11-03] MEDS: diphenhydrAMINE 50 mg/mL SDV 1mL 25 MG IVP (15:00)
[2023-11-03] MEDS: methylPREDNISolone sod succ 40 mg/mL INJ IVP (15:02)
[2023-11-03] MEDS: INFLIXIMAB AXXQ IV (15:34)
[2023-11-03] MEDS: SODIUM CHLORIDE 0.9% IV (15:34)
[2023-11-03 15:35] VITALS: BP 144/76; PULSE 62; RESP 17; TEMP 36.5; O2SAT 99
[2023-11-03 15:50] VITALS: BP 118/72; PULSE 60; RESP 17; TEMP 36.7; O2SAT 94
[2023-11-03 16:20] VITALS: BP 159/75; PULSE 60; RESP 17; TEMP 36.5; O2SAT 99
[2023-11-03 16:40] VITALS: BP 153/70; PULSE 66; RESP 17; TEMP 36.3; O2SAT 94
[2023-11-03 17:10] VITALS: BP 133/69; PULSE 66; TEMP 36.5; O2SAT 98
[2023-11-03 18:09] VITALS: BP 137/75; PULSE 58; TEMP 36.7; O2SAT 100
[2023-11-08 15:50] LABS: Soluble Transferrin Receptor 1.38 mg/L (0.76-1.76)
== END 2023-11-05 23:59 | disposition home or self-care (01) ==
PROVIDERS: Internal Medicine; Internal Medicine Medical Oncology; PCP Registered Nurse; Visit Provider Internal Medicine Rheumatology
DX: M05.70 Rheumatoid arthritis with rheumatoid factor of unspecified site without organ or systems involvement (principal); Z53.9 Procedure and treatment not carried out, unspecified reason; D50.9 Iron deficiency anemia, unspecified; Z79.899 Other long term (current) drug therapy
CPT/HCPCS: 36415; 80053; 82525; 82607; 82728; 82746; 83540; 83550; 83615; 83921; 84238; 85025; 85651; 86140; 96375; 96413; 96415; 99214; J1200; J2920; J7050; Q5121

== ENCOUNTER 2023-11-25 08:45 | Oncology outpatient (recurring) (ONCR) | payer MEDICARE, MEDICAID, SELFPAY ==
[2023-11-25 08:54] VITALS: BP 140/82; PULSE 51; RESP 16; TEMP 36.7; O2SAT 97
[2023-11-25] MEDS: denosumab 60 mg SDV SUBCUT (08:57)
== END 2023-12-04 23:59 | disposition home or self-care (01) ==
PROVIDERS: PCP Registered Nurse; Visit Provider Internal Medicine Rheumatology
DX: M05.70 Rheumatoid arthritis with rheumatoid factor of unspecified site without organ or systems involvement (principal); Z53.9 Procedure and treatment not carried out, unspecified reason; D50.9 Iron deficiency anemia, unspecified; Z79.899 Other long term (current) drug therapy
CPT/HCPCS: 96372; J0897

== ENCOUNTER 2023-12-22 12:10 | Oncology outpatient (recurring) (ONCR) | payer MEDICARE, MEDICAID, SELFPAY ==
[2023-12-22] VITALS (7 sets, daily range): BP systolic 88–123; BP diastolic 61–76; PULSE 58–90; RESP 16–18; TEMP 36.4–36.9; O2SAT 92–100
[2023-12-22] MEDS: acetaminophen 325 mg Tablet 650 MG PO (12:55)
[2023-12-22] MEDS: diphenhydrAMINE 50 mg/mL SDV 1mL 25 MG IVP (12:55)
[2023-12-22] MEDS: sodium chloride 0.9% 250 ML 75 ML IV (12:55)
[2023-12-22] MEDS: methylPREDNISolone sod succ 40 mg/mL INJ IVP (12:58)
[2023-12-22] MEDS: INFLIXIMAB AXXQ IV (13:13)
[2023-12-22] MEDS: SODIUM CHLORIDE 0.9% IV (13:13)
== END 2024-01-04 23:59 | disposition home or self-care (01) ==
PROVIDERS: PCP Registered Nurse; Visit Provider Internal Medicine Rheumatology
DX: M05.70 Rheumatoid arthritis with rheumatoid factor of unspecified site without organ or systems involvement (principal)
CPT/HCPCS: 96375; 96413; 96415; J1200; J2920; J7050; Q5121

== ENCOUNTER 2023-12-29 10:57 | Outpatient (CLI) | payer MEDICARE, MEDICAID, SELFPAY ==
--- NOTE | 2023-12-29 10:30 | MM_ITS ---
WS: [id number] VIEWS: MLO and CC views both breasts. 3D digital tomosynthesis is also included in this exam. Comparison made with prior exam of 08/26/2019, 03/26/2022.. Findings: There was no sign of mass, architectural distortion or suspicious calcification in either breast. The re are scattered areas of fibroglandular density Impression: MM/[place] [id number] BI-RADS: 1-Negative FOLLOW-UP: 1 Year Follow-up This mammogram was also analyzed by the Computer Aided Detection System R2 Imag e Welfare Specialist.
== END 2023-12-29 10:58 | disposition home or self-care (01) ==
LOC: RAD 10:57
PROVIDERS: PCP Registered Nurse; Visit Provider Registered Nurse
DX: Z12.31 Encounter for screening mammogram for malignant neoplasm of breast (principal)
CPT/HCPCS: 77063; 77067

== ENCOUNTER → 2024-01-13 14:54 | Outpatient (BNVA) | payer MEDICARE, MEDICAID, SELFPAY | PROVIDERS: PCP Registered Nurse; Visit Provider Internal Medicine | DX: I11.0 Hypertensive heart disease with heart failure (principal); I50.9 Heart failure, unspecified; I48.20 Chronic atrial fibrillation, unspecified; I65.23 Occlusion and stenosis of bilateral carotid arteries | CPT/HCPCS: 36415; 80053; 82607; 82728; 82746; 83540; 83550; 83880; 83921; 84238; 85025; 99214 ==

== ENCOUNTER → 2024-01-26 14:08 | Outpatient (BNVA) | payer MEDICARE, MEDICAID, SELFPAY | PROVIDERS: PCP Registered Nurse; Visit Provider Podiatrist Foot & Ankle Surgery | DX: N18.9 Chronic kidney disease, unspecified (principal); M05.79 Rheumatoid arthritis with rheumatoid factor of multiple sites without organ or systems involvement; Z79.01 Long term (current) use of anticoagulants; G57.93 Unspecified mononeuropathy of bilateral lower limbs; M20.41 Other hammer toe(s) (acquired), right foot; M20.42 Other hammer toe(s) (acquired), left foot; M21.611 Bunion of right foot; M21.612 Bunion of left foot; M19.071 Primary osteoarthritis, right ankle and foot; M19.072 Primary osteoarthritis, left ankle and foot | CPT/HCPCS: 73600; 73630; 99203 ==

== ENCOUNTER 2024-02-02 09:53 | Oncology outpatient (recurring) (ONCR) | payer MEDICARE, MEDICAID, SELFPAY ==
[2024-02-02] VITALS (7 sets, daily range): BP systolic 118–150; BP diastolic 61–84; PULSE 60–75; RESP 16; TEMP 36–36.8; O2SAT 91–100
--- NOTE | 2024-02-02 10:54 | PC.NURSE ---
Patient scheduled today for Infliximab infusion. When completing RHEO Infusion questions, patient reported cough and shortness of breath that are normal for her. MD aware of this.
[2024-02-02] MEDS: acetaminophen 325 mg Tablet 650 MG PO (11:15)
[2024-02-02] MEDS: diphenhydrAMINE 50 mg/mL SDV 1mL 25 MG IVP (11:16)
[2024-02-02] MEDS: methylPREDNISolone sod succ 40 mg/mL INJ IVP (11:17)
[2024-02-02] MEDS: SODIUM CHLORIDE 0.9% IV (12:00)
[2024-02-02] MEDS: INFLIXIMAB AXXQ IV (12:00)
== END 2024-02-03 23:59 | disposition home or self-care (01) ==
PROVIDERS: PCP Registered Nurse; Visit Provider Internal Medicine Rheumatology
DX: M81.0 Age-related osteoporosis without current pathological fracture (principal); D50.9 Iron deficiency anemia, unspecified; Z79.899 Other long term (current) drug therapy; I48.91 Unspecified atrial fibrillation; Z79.01 Long term (current) use of anticoagulants
CPT/HCPCS: 96375; 96413; 96415; 99213; A4222; J1200; J2919; J7050; Q5121

== ENCOUNTER 2024-03-22 11:08 | Outpatient (CLI) | payer MEDICARE, MEDICAID, SELFPAY ==
--- NOTE | 2024-03-22 11:15 | USCV_ITS ---
Laila Maloney Age: 68 Gender: F : 1955 Exam Date: 03/22/2024 11:13 Ordering Phys: Jorje Teixeira MD (Andy) ([email or web address] [place]) Technologist: R Exam Location: [facility] [place] Indication: hx of subclav steal Risk Factors: Previous Vascular Surgery: Right Brachial BP: / Left Brachial BP: / Right Left Velocity (cm/s) Spectral Plaque Velocity (cm/s) Spectral Plaque Syst/Diast Broadening Syst/Diast Broadening 74.00/ 13.30 Prox CCA 90.60 / 19.00 92.50/ 15.30 Mid CCA 90.50 / 18.00 82.80/ 14.10 Distal CCA 85.50 / 14.60 53.50/ 11.60 Prox ICA 75.60 / 16.90 69.00/ 17.00 Mid ICA 97.60 / 25.90 76.10/ 17.00 Distal ICA 134.60/ 25.90 123.40 ECA 110.80 0.90 ICA/CCA 1.60 Antegrade Vertebral Retrograde 91.60/ 14.50 cm/s 58.70/ 0.00 cm/s Tri Subclavian [place] 138.1 0 FINDINGS Comparison:. 02/22/19. Image quality limited, cannot accurately assess plaque burden. No significant elevation of systolic or diastolic velocities. Diffuse bilateral scattered calcified plaque and intimal thickening throughout the common carotid arteries and extending through the bifurcation. Reversal of left vertebral artery flow direction. Antegrade right vertebal artery. Dampend left subclavian artery waveform, loss of triphasic pattern. CONCLUSIONS Bilateral ICA stenosis less than 50%. Reversal of flow left vertebral artery and abnormal waveform left subclavian artery. Recommend CTA carotid arteries. Dr. Eim Pulido DO (Electronically Signed) Final Date: 22 March 2024 13:35 S
== END 2024-03-22 11:09 | disposition home or self-care (01) ==
LOC: RAD 11:08
PROVIDERS: PCP Registered Nurse; Visit Provider Thoracic Surgery (Cardiothoracic Vascular Surgery)
DX: I65.23 Occlusion and stenosis of bilateral carotid arteries (principal)
CPT/HCPCS: 93880

== ENCOUNTER → 2024-03-29 14:30 | Outpatient (BNVA) | payer MEDICARE, MEDICAID, SELFPAY | PROVIDERS: PCP Registered Nurse; Visit Provider Thoracic Surgery (Cardiothoracic Vascular Surgery) | DX: I65.23 Occlusion and stenosis of bilateral carotid arteries (principal); I13.0 Hypertensive heart and chronic kidney disease with heart failure and stage 1 through stage 4 chronic kidney disease, or unspecified chronic kidney disease; I50.9 Heart failure, unspecified; N18.9 Chronic kidney disease, unspecified | CPT/HCPCS: 99213 ==

== ENCOUNTER 2024-03-31 12:43 | Oncology outpatient (recurring) (ONCR) | payer MEDICARE, MEDICAID, SELFPAY ==
[2024-03-15] VITALS (7 sets, daily range): BP systolic 116–138; BP diastolic 63–87; PULSE 60–79; RESP 16; TEMP 36.4–36.7; O2SAT 93–99
[2024-03-15 09:49] LABS: Basophils # 0.1 10^3/uL (0.0-0.1); Basophils % 0.7 %; Eosinophils # 0.2 10^3/uL (0.0-0.8); Eosinophils % 2.3 %; Hematocrit 43.7 % (36-47); Lymphocytes # 1.1 10^3/uL (0.8-4.8); Lymphocytes % 15.9 %; Mean Corpuscular HGB Conc 30.4 g/dL (30-55); Mean Corpuscular Hemoglobin 24.8 pg (27-33); Mean Corpuscular Volume 81.4 fl (85-98); Mean Platelet Volume 10.9 fL (7.4-10.4); Monocytes # 0.6 10^3/uL (0.2-0.9); Monocytes % 7.9 %; Neutrophils # 5.03 10^3/uL (1.8-7.7); Neutrophils % 72.8 %; Nucleated Red Blood Cells % 0 %; Platelet Count 306 10^3/cmm (157-399); Red Blood Count 5.37 10^6/uL (3.85-5.65); White Blood Count 6.92 10^3/uL (3.29-11.43)
[2024-03-15] MEDS: diphenhydrAMINE 50 mg/mL SDV 1mL 25 MG IVP (10:51)
[2024-03-15] MEDS: acetaminophen 325 mg Tablet 650 MG PO (10:51)
[2024-03-15] MEDS: sodium chloride 0.9% 250 ML 75 ML IV (10:51)
[2024-03-15 10:54] LABS: Alanine Aminotransferase 9 U/L (0-33); Albumin Level 4.1 g/dL (3.5-5.2); Alkaline Phosphatase 82 U/L (35-105); Anion Gap 14.7 (5-19); Aspartate Amino Transferase 16 U/L (0-32); Blood Urea Nitrogen 12 mg/dL (8-23); Calcium 9.2 mg/dL (8.5-10.5); Carbon Dioxide 28 mmol/L (22-29); Chloride 98 mmol/L (98-107); Creatinine Clr Calc Pharmacy 65.3157; Ferritin 93 ng/mL (15-150); Globulin 3.8 g/dL (1.3-4.6); Glomerular Filtration Rate 82.7 mL/min (90-130); Glucose 107 mg/dL (65-115); Iron 35 ug/dL (37-145); Osmolality Calculated 284 mOsm/kg (285-295); Percent Saturation 12.9 % (20-50); Potassium 3.7 mmol/L (3.5-5.1); Sodium 137 mmol/L (136-145); Total Iron Binding Capacity 270 mcg/dl; Total Protein 7.9 g/dL (6.6-8.7); Unsaturated Iron Binding 235 ug/dL (112-347)
[2024-03-15] MEDS: methylPREDNISolone sod succ 40 mg/mL INJ IVP (10:54)
[2024-03-15] MEDS: INFLIXIMAB AXXQ IV (11:08)
[2024-03-15] MEDS: SODIUM CHLORIDE 0.9% IV (11:08)
--- NOTE | 2024-03-31 13:00 | CTR_ITS ---
PROCEDURE INFORMATION: Exam: CT Chest With Contrast; Diagnostic Exam date and time: 03/31/2024 1:28 PM Age: 68 years old Clinical indication: Condition or disease; Other: Lung mass; Prior surgery; Surgery date: 6+ months; Surgery type: Appy, hyst, kyphoplasty; Additional info: Lung mass, iv contrast TECHNIQUE: Imaging protocol: Diagnostic computed tomography of the chest with contrast. Radiation optimization: All CT scans at this facility use at least one of these dose optimization techniques: automated exposure control; mA and/or kV adjustment per patient size (includes targeted exams where dose is matched to clinical indication); or iterative reconstruction. Contrast material: OMNI 350; Contrast volume: 100 ml; Contrast route: INTRAVENOUS (IV); COMPARISON: CT chest con [id number] 01/26/2018 4:03 PM RADIATION DOSE METRICS: Total DLP (mGy-cm): 847.51 FINDINGS: Thyroid: Grossly unremarkable. Lungs: No focal consolidation. 3 mm left apical pulmonary nodule, not significantly changed since January 2018 (image 20 of series 9). No dedicated follow-up is required. There is right basilar rounded/subsegmental atelectasis. Pleural spaces: Trace-small right-sided pleural effusion with mild pleural thickening. No pneumothorax. Heart: No cardiomegaly. No pericardial effusion. Mediastinal space: Trachea and central airways are grossly patent. Moderate hiatal hernia with the GE junction and a portion of the gastric body above the diaphragm. Lymph nodes: No evidence of mediastinal or hilar adenopathy. Vasculature: Atherosclerosis without aneurysmal dilatation of the thoracic aorta. No evidence of dissection. Hypodensity within the left upper lobe anterior segmental pulmonary artery on axial series image 18 series 4 reflects partial volume averaging as demonstrated by coronal series 8). There is narrowing and hypoattenuation of the right basilar subsegmental pulmonary arteries raising the question of chronic PE. Bones/joints: No evidence of acute fracture or aggressive osseous lesion. Chronic T12 vertebral body compression fracture status post vertebroplasty with minimal height loss. Soft tissues: No fluid collection or hematoma in the superficial soft tissues. PROCEDURE INFORMATION: Exam: CT Abdomen And Pelvis With Contrast Exam date and time: 03/31/2024 1:28 PM Age: 68 years old Clinical indication: Condition or disease; Other: Lung mass; Prior surgery; Surgery date: 6+ months; Surgery type: Appy, hyst, kyphoplasty; Additional info: Lung mass, iv contrast TECHNIQUE: Imaging protocol: Computed tomography of the abdomen and pelvis with contrast. Radiation optimization: All CT scans at this facility use at least one of these dose optimization techniques: automated exposure control; mA and/or kV adjustment per patient size (includes targeted exams where dose is matched to clinical indication); or iterative reconstruction. Contrast material: OMNI 350; Contrast volume: 100 ml; Contrast route: INTRAVENOUS (IV); COMPARISON: CT abdomen pelvis wo con [id number] 06/06/2023 1:58 PM RADIATION DOSE METRICS: Total DLP (mGy-cm): 847.51 FINDINGS: Liver: Hepatic steatosis. No evidence of focal hepatic lesion. Gallbladder and biliary ducts: There is cholelithiasis. No inflammatory changes to suggest acute cholecystitis. No intrahepatic or extrahepatic biliary dilatation. Pancreas: Unremarkable. Spleen: Unremarkable. Adrenal glands: Unremarkable. Kidneys and ureters: Severe renal atrophy on the right. There is renal parenchymal scarring on the left. No hydronephrosis or ureteral stone. Stomach and bowel: No evidence of bowel obstruction or perienteric inflammatory changes. Appendix: The appendix is not visualized, however there are no findings to suggest appendicitis. Intraperitoneal space: No evidence of free air or fluid collection. Vasculature: Moderate aortobiiliac atherosclerosis without aneurysmal dilatation or dissection. Mild-moderate narrowing of the proximal SMA secondary to noncalcified atherosclerotic plaque. The celiac trunk, SMA and SURJIT are grossly patent. No evidence of IVC thrombus. The portal vein, SMV and splenic veins are grossly patent. Lymph nodes: No adenopathy. Urinary bladder: Grossly unremarkable. Reproductive: Prior hysterectomy. Bones/joints: No evidence of acute fracture or aggressive osseous lesion. Grade 1 anterolisthesis of L4 on L5 secondary to facet arthrosis. There is lumbosacral transitional anatomy with partial lumbarization of L5. Chronic sacral fracture noted Soft tissues: No evidence of fluid collection or hematoma in the superficial soft tissues. CT/CT chest abdpel w/*[id number] IMPRESSION: 1. No evidence of acute abnormality in the chest. 2. Small right-sided pleural effusion with pleural thickening and rounded atelectasis, favored to be chronic. 3. Moderate hiatal hernia. 4. Suspected chronic PE involving the right lower lobe subsegmental branches. 5. Severe atherosclerosis with segmental occlusion of the proximal left subclavian artery. Follow-up nonemergent vascular evaluation is recommended. IMPRESSION: 1. No evidence of acute abnormality in the abdomen or pelvis. 2. Severe right-sided renal parenchymal atrophy. 3. Mild-moderate narrowing of the proximal SMA secondary to noncalcified atherosclerotic plaque, which may be assessed at time of follow-up vascular evaluation.
[2024-03-31] MEDS: iohexol 350 mg/mL 500 mL Btl (per mL) IV (13:39)
== END 2024-04-04 23:59 | disposition home or self-care (01) ==
LOC: ONCMED 12:43 → RAD 12:43 → ONCMED 04-16 09:56
PROVIDERS: Internal Medicine Rheumatology; Nurse Practitioner Family; PCP Registered Nurse; Visit Provider Internal Medicine
DX: R91.8 Other nonspecific abnormal finding of lung field; J90 Pleural effusion, not elsewhere classified; J98.11 Atelectasis; K44.9 Diaphragmatic hernia without obstruction or gangrene; I70.8 Atherosclerosis of other arteries; E11.8 Type 2 diabetes mellitus with unspecified complications
CPT/HCPCS: 71260; 74177; 80053; 82728; 83540; 83550; 85025; 96375; 96413; 96415; 99213; J1200; J2919; J7050; Q5121; Q9967

== ENCOUNTER → 2024-04-05 12:55 | Outpatient (BNVA) | payer MEDICARE, MEDICAID, SELFPAY | PROVIDERS: PCP Registered Nurse; Visit Provider Internal Medicine Rheumatology | DX: M05.79 Rheumatoid arthritis with rheumatoid factor of multiple sites without organ or systems involvement (principal); M85.80 Other specified disorders of bone density and structure, unspecified site; I48.91 Unspecified atrial fibrillation; Z71.85 Encounter for immunization safety counseling; Z79.899 Other long term (current) drug therapy | CPT/HCPCS: 99214 ==

== ENCOUNTER 2024-04-05 15:12 | Outpatient (CLI) | payer MEDICARE, MEDICAID, SELFPAY | END 2024-04-05 15:13 | disposition home or self-care (01) | LOC: SPT 15:13 | PROVIDERS: PCP Registered Nurse; Visit Provider Podiatrist Foot & Ankle Surgery | DX: Z46.89 Encounter for fitting and adjustment of other specified devices (principal); M19.071 Primary osteoarthritis, right ankle and foot; M19.072 Primary osteoarthritis, left ankle and foot; G57.93 Unspecified mononeuropathy of bilateral lower limbs; M05.79 Rheumatoid arthritis with rheumatoid factor of multiple sites without organ or systems involvement; N19 Unspecified kidney failure | CPT/HCPCS: L3030 ==

== ENCOUNTER 2024-04-26 10:30 | Oncology outpatient (recurring) (ONCR) | payer MEDICARE, MEDICAID, SELFPAY ==
[2024-04-26] VITALS (8 sets, daily range): BP systolic 116–138; BP diastolic 64–76; PULSE 62–71; RESP 16–17; TEMP 35.8–36.5; O2SAT 91–97
--- NOTE | 2024-04-26 10:50 | PC.NURSE ---
patient reports that she is diagnosed with asthma and COPD, Dr. Avila aware of symptoms and patient to continue with treatment.
[2024-04-26] MEDS: sodium chloride 0.9% 250 ML 75 ML IV (12:30)
[2024-04-26] MEDS: acetaminophen 325 mg Tablet 650 MG PO (12:34)
[2024-04-26] MEDS: diphenhydrAMINE 50 mg/mL SDV 1mL 25 MG IVP (12:36)
[2024-04-26] MEDS: methylPREDNISolone sod succ 40 mg/mL INJ IVP (12:41)
[2024-04-26] MEDS: INFLIXIMAB AXXQ IV (13:15)
[2024-04-26] MEDS: SODIUM CHLORIDE 0.9% IV (13:15)
== END 2024-05-05 23:59 | disposition home or self-care (01) ==
PROVIDERS: PCP Registered Nurse; Visit Provider Radiology Radiation Oncology
DX: M05.70 Rheumatoid arthritis with rheumatoid factor of unspecified site without organ or systems involvement (principal); Z53.9 Procedure and treatment not carried out, unspecified reason; Z79.620 Long term (current) use of immunosuppressive biologic; Z79.899 Other long term (current) drug therapy; M85.88 Other specified disorders of bone density and structure, other site
CPT/HCPCS: 96367; 96413; 96415; 99214; A4222; J1200; J2919; J7050; Q5121

== ENCOUNTER → 2024-05-03 10:54 | Outpatient (BNVA) | payer MEDICARE, MEDICAID, SELFPAY | PROVIDERS: PCP Registered Nurse; Visit Provider Nurse Practitioner Family | DX: I11.0 Hypertensive heart disease with heart failure (principal); I50.32 Chronic diastolic (congestive) heart failure; I48.20 Chronic atrial fibrillation, unspecified; I25.10 Atherosclerotic heart disease of native coronary artery without angina pectoris; Z79.01 Long term (current) use of anticoagulants | CPT/HCPCS: 99214 ==

== ENCOUNTER → 2024-05-11 08:21 | Outpatient (BNVA) | payer MEDICARE, MEDICAID, SELFPAY | PROVIDERS: PCP Registered Nurse; Visit Provider Registered Nurse | DX: J18.9 Pneumonia, unspecified organism (principal); J32.9 Chronic sinusitis, unspecified | CPT/HCPCS: 85025; 87426 ==

== ENCOUNTER 2024-05-24 09:02 | Oncology outpatient (recurring) (ONCR) | payer MEDICARE, MEDICAID, SELFPAY ==
[2024-05-24 09:28] VITALS: BP 128/77; PULSE 48; RESP 16; TEMP 36.6; O2SAT 96
[2024-05-24] MEDS: denosumab 60 mg SDV SUBCUT (09:36)
[2024-05-24 10:00] LABS: Albumin Level 3.9 g/dL (3.5-5.2); Calcium 9.2 mg/dL (8.5-10.5)
[2024-05-24 10:16] LABS: 25 Hydroxy Vitamin D 26 ng/mL (30-100)
== END 2024-06-05 23:59 | disposition home or self-care (01) ==
PROVIDERS: Internal Medicine Rheumatology; PCP Registered Nurse; Visit Provider Radiology Radiation Oncology
DX: M05.70 Rheumatoid arthritis with rheumatoid factor of unspecified site without organ or systems involvement (principal); Z53.9 Procedure and treatment not carried out, unspecified reason; Z79.899 Other long term (current) drug therapy
CPT/HCPCS: 36415; 82040; 82306; 82310; 96372; J0897

== ENCOUNTER 2024-06-10 09:08 | Oncology outpatient (recurring) (ONCR) | payer MEDICARE, MEDICAID, SELFPAY ==
[2024-06-10] VITALS (8 sets, daily range): BP systolic 119–146; BP diastolic 52–79; PULSE 51–64; RESP 16; TEMP 35.7–36.8; O2SAT 90–99
[2024-06-10] MEDS: sodium chloride 0.9% 250 ML 75 ML IV (10:24)
[2024-06-10] MEDS: acetaminophen 325 mg Tablet 650 MG PO (10:26)
[2024-06-10] MEDS: diphenhydrAMINE 50 mg/mL SDV 1mL 25 MG IVP (10:27)
[2024-06-10] MEDS: methylPREDNISolone sod succ 40 mg/mL INJ IVP (10:33)
[2024-06-10] MEDS: INFLIXIMAB AXXQ IV (11:19)
[2024-06-10] MEDS: SODIUM CHLORIDE 0.9% IV (11:19)
== END 2024-07-05 23:59 | disposition home or self-care (01) ==
PROVIDERS: PCP Registered Nurse; Visit Provider Radiology Radiation Oncology
DX: Z79.899 Other long term (current) drug therapy; M05.9 Rheumatoid arthritis with rheumatoid factor, unspecified
CPT/HCPCS: 96375; 96413; 96415; A4222; J1200; J2919; J7050; Q5121

== ENCOUNTER → 2024-07-12 12:36 | Outpatient (BNVA) | payer MEDICARE, MEDICAID, SELFPAY | PROVIDERS: PCP Registered Nurse; Visit Provider Internal Medicine | DX: I13.0 Hypertensive heart and chronic kidney disease with heart failure and stage 1 through stage 4 chronic kidney disease, or unspecified chronic kidney disease (principal); I50.32 Chronic diastolic (congestive) heart failure; N18.9 Chronic kidney disease, unspecified; I48.20 Chronic atrial fibrillation, unspecified; I65.23 Occlusion and stenosis of bilateral carotid arteries; Z79.01 Long term (current) use of anticoagulants | CPT/HCPCS: 99213 ==

== ENCOUNTER → 2024-07-20 06:46 | Outpatient (BNVA) | payer MEDICARE, MEDICAID, SELFPAY | PROVIDERS: PCP Registered Nurse; Visit Provider Podiatrist Foot & Ankle Surgery | DX: N18.9 Chronic kidney disease, unspecified (principal); M05.79 Rheumatoid arthritis with rheumatoid factor of multiple sites without organ or systems involvement; Z79.01 Long term (current) use of anticoagulants; G57.93 Unspecified mononeuropathy of bilateral lower limbs; M19.071 Primary osteoarthritis, right ankle and foot; M19.072 Primary osteoarthritis, left ankle and foot; M20.41 Other hammer toe(s) (acquired), right foot; M20.42 Other hammer toe(s) (acquired), left foot; M21.611 Bunion of right foot; M21.612 Bunion of left foot; R03.0 Elevated blood-pressure reading, without diagnosis of hypertension; M06.30 Rheumatoid nodule, unspecified site | CPT/HCPCS: 99213 ==

== ENCOUNTER 2024-08-05 08:30 | Oncology outpatient (recurring) (ONCR) | payer MEDICARE, MEDICAID, SELFPAY ==
[2024-07-08] VITALS (8 sets, daily range): BP systolic 128–154; BP diastolic 52–78; PULSE 49–67; RESP 16; TEMP 36.2–36.9; O2SAT 90–98
[2024-07-08] MEDS: sodium chloride 0.9% 250 ML 75 ML IV (09:47)
[2024-07-08] MEDS: methylPREDNISolone sod succ 40 mg/mL INJ IVP (09:50)
[2024-07-08] MEDS: acetaminophen 325 mg Tablet 650 MG PO (09:50)
[2024-07-08] MEDS: diphenhydrAMINE 50 mg/mL SDV 1mL 25 MG IVP (09:52)
[2024-07-08] MEDS: INFLIXIMAB AXXQ IV (10:36)
[2024-07-08] MEDS: SODIUM CHLORIDE 0.9% IV (10:36)
[2024-08-05 09:50] LABS: Basophils % 0.7 %; Eosinophils # 0.1 10^3/uL (0.0-0.8); Eosinophils % 3.1 %; Hematocrit 38.3 % (36-47); Lymphocytes % 22.3 %; Mean Corpuscular HGB Conc 29.2 g/dL (30-55); Mean Corpuscular Hemoglobin 22.7 pg (27-33); Mean Corpuscular Volume 77.5 fl (85-98); Mean Platelet Volume 10.3 fL (7.4-10.4); Monocytes # 0.5 10^3/uL (0.2-0.9); Monocytes % 11.2 %; Neutrophils # 2.86 10^3/uL (1.8-7.7); Neutrophils % 62.5 %; Nucleated Red Blood Cells % 0 %; Platelet Count 303 10^3/cmm (157-399); Red Blood Count 4.94 10^6/uL (3.85-5.65); Red Cell Distribution Width 16.3 % (12.1-15.1); White Blood Count 4.57 10^3/uL (3.29-11.43)
[2024-08-05] MEDS: acetaminophen 325 mg Tablet 650 MG PO (11:18)
[2024-08-05] MEDS: diphenhydrAMINE 50 mg/mL SDV 1mL 25 MG IVP (11:19)
[2024-08-05] MEDS: methylPREDNISolone sod succ 40 mg/mL INJ IVP (11:25)
[2024-08-05] MEDS: SODIUM CHLORIDE 0.9% IV (11:52)
[2024-08-05] MEDS: INFLIXIMAB AXXQ IV (11:52)
[2024-08-05 12:00] VITALS: BP 161/82; PULSE 57; RESP 18; TEMP 36.7; O2SAT 93
[2024-08-05 12:15] VITALS: BP 170/83; PULSE 58; RESP 18; TEMP 36.7; O2SAT 98
[2024-08-05 12:30] VITALS: BP 171/75; PULSE 59; RESP 17; TEMP 36.6; O2SAT 97
[2024-08-05 12:45] VITALS: BP 168/78; PULSE 57; RESP 18; TEMP 36.6; O2SAT 97
[2024-08-05 14:10] VITALS: BP 143/79; PULSE 65; RESP 18; TEMP 36.4; TEMP 36.6; O2SAT 95; O2SAT 98
[2024-08-05 14:33] LABS: Alanine Aminotransferase 7 U/L (0-33); Albumin Level 3.7 g/dL (3.5-5.2); Alkaline Phosphatase 79 U/L (35-105); Anion Gap 15.1 (5-19); Aspartate Amino Transferase 17 U/L (0-32); Blood Urea Nitrogen 12 mg/dL (8-23); Carbon Dioxide 24 mmol/L (22-29); Chloride 104 mmol/L (98-107); Creatinine Clr Calc Pharmacy 58.4651; Ferritin 24 ng/mL (15-150); Globulin 3.4 g/dL (1.3-4.6); Glucose 143 mg/dL (65-115); Iron 21 ug/dL (37-145); Osmolality Calculated 290 mOsm/kg (285-295); Percent Saturation 6.4 % (20-50); Potassium 4.1 mmol/L (3.5-5.1); Sodium 139 mmol/L (136-145); Total Bilirubin 1.3 mg/dL (0.15-1.2); Total Iron Binding Capacity 328 mcg/dl; Total Protein 7.1 g/dL (6.6-8.7); Unsaturated Iron Binding 307 ug/dL (112-347)
== END 2024-08-05 23:59 | disposition home or self-care (01) ==
PROVIDERS: Internal Medicine Medical Oncology; Nurse Practitioner Family; PCP Registered Nurse; Visit Provider Radiology Radiation Oncology
DX: Z53.9 Procedure and treatment not carried out, unspecified reason (principal); D50.9 Iron deficiency anemia, unspecified; D64.9 Anemia, unspecified; Z79.899 Other long term (current) drug therapy
CPT/HCPCS: 36415; 80053; 82728; 83540; 83550; 85025; 96375; 96413; 96415; 99214; A4222; J1200; J2919; J7050; Q5121

== ENCOUNTER → 2024-08-09 14:11 | Outpatient (BNVA) | payer MEDICARE, MEDICAID, SELFPAY | PROVIDERS: PCP Registered Nurse; Visit Provider Internal Medicine Rheumatology | DX: M05.79 Rheumatoid arthritis with rheumatoid factor of multiple sites without organ or systems involvement (principal); Z71.85 Encounter for immunization safety counseling; Z79.899 Other long term (current) drug therapy; M85.80 Other specified disorders of bone density and structure, unspecified site; I48.91 Unspecified atrial fibrillation | CPT/HCPCS: 99214 ==

== ENCOUNTER 2024-09-01 10:00 | Oncology outpatient (recurring) (ONCR) | payer MEDICARE, MEDICAID, SELFPAY ==
[2024-08-16] MEDS: iron sucrose 200 MG in sodium chloride 0.9% (100 ml) 100 ML 220 MG IV (13:59)
[2024-08-16 14:34] VITALS: BP 124/58; PULSE 57; RESP 16; TEMP 36.2; O2SAT 98
[2024-08-18 13:53] VITALS: BP 127/60; PULSE 50; RESP 17; TEMP 36.6; O2SAT 94
[2024-08-18] MEDS: iron sucrose 200 MG in sodium chloride 0.9% (100 ml) 100 ML 220 MG IV (14:03)
[2024-08-18 14:40] VITALS: BP 137/82; PULSE 52; RESP 17; TEMP 36.6; O2SAT 95
[2024-08-23] MEDS: iron sucrose 200 MG in sodium chloride 0.9% (100 ml) 100 ML 220 MG IV (13:27)
[2024-08-23 14:07] VITALS: BP 112/64; PULSE 68; RESP 16; TEMP 36.8; O2SAT 94
[2024-08-25 13:45] VITALS: BP 171/79; PULSE 59; RESP 16; TEMP 36.4; O2SAT 96
[2024-08-25] MEDS: iron sucrose 200 MG in sodium chloride 0.9% (100 ml) 100 ML 220 MG IV (13:57)
[2024-08-25 14:40] VITALS: BP 142/74; PULSE 74; RESP 18; TEMP 36.6; O2SAT 96
[2024-08-27 10:37] VITALS: BP 121/58; PULSE 58; RESP 16; TEMP 36.8; O2SAT 95
[2024-08-27] MEDS: iron sucrose 200 MG in sodium chloride 0.9% (100 ml) 100 ML 220 MG IV (10:38)
[2024-09-01 10:12] VITALS: BP 143/69; PULSE 79; RESP 16; TEMP 36.3; O2SAT 92
[2024-09-01] MEDS: acetaminophen 325 mg Tablet 650 MG PO (10:54)
[2024-09-01] MEDS: diphenhydrAMINE 50 mg/mL SDV 1mL 25 MG IVP (10:54)
[2024-09-01] MEDS: sodium chloride 0.9% 250 ML 50 ML IV (10:55)
[2024-09-01] MEDS: methylPREDNISolone sod succ 40 mg/mL INJ IVP (11:00)
[2024-09-01] MEDS: SODIUM CHLORIDE 0.9% IV (11:27)
[2024-09-01] MEDS: INFLIXIMAB AXXQ IV (11:27)
[2024-09-01 12:29] VITALS: BP 151/74; PULSE 89; RESP 16; TEMP 36.8; O2SAT 99
== END 2024-09-04 23:59 | disposition home or self-care (01) ==
PROVIDERS: PCP Registered Nurse; Visit Provider Nurse Practitioner Family
DX: M05.9 Rheumatoid arthritis with rheumatoid factor, unspecified; Z79.899 Other long term (current) drug therapy; Z53.9 Procedure and treatment not carried out, unspecified reason
CPT/HCPCS: 96365; 96375; 96413; A4222; J1200; J1756; J2919; J7050; Q5121

== ENCOUNTER 2024-09-30 13:00 | Oncology outpatient (recurring) (ONCR) | payer MEDICARE, MEDICAID, SELFPAY ==
[2024-09-16 14:31] LABS: Basophils % 0.5 %; Eosinophils # 0.1 10^3/uL (0.0-0.8); Eosinophils % 2.7 %; Hematocrit 43.6 % (36-47); Lymphocytes # 1.1 10^3/uL (0.8-4.8); Mean Corpuscular HGB Conc 29.4 g/dL (30-55); Mean Corpuscular Hemoglobin 23.6 pg (27-33); Mean Corpuscular Volume 80.3 fl (85-98); Mean Platelet Volume 9.9 fL (7.4-10.4); Monocytes # 0.4 10^3/uL (0.2-0.9); Monocytes % 9.6 %; Neutrophils # 2.45 10^3/uL (1.8-7.7); Nucleated Red Blood Cells % 0 %; Platelet Count 261 10^3/cmm (157-399); Red Blood Count 5.43 10^6/uL (3.85-5.65); Red Cell Distribution Width 20.6 % (12.1-15.1); White Blood Count 4.08 10^3/uL (3.29-11.43)
[2024-09-16 14:55] LABS: Alanine Aminotransferase < 5 U/L (0-33); Albumin Level 3.9 g/dL (3.5-5.2); Alkaline Phosphatase 76 U/L (35-105); Anion Gap 15.3 (5-19); Aspartate Amino Transferase 13 U/L (0-32); Blood Urea Nitrogen 10 mg/dL (8-23); Calcium 9.2 mg/dL (8.5-10.5); Carbon Dioxide 25 mmol/L (22-29); Chloride 101 mmol/L (98-107); Ferritin 153 ng/mL (15-150); Globulin 3.6 g/dL (1.3-4.6); Glucose 103 mg/dL (65-115); Iron 44 ug/dL (37-145); Osmolality Calculated 283 mOsm/kg (285-295); Percent Saturation 16.9 % (20-50); Potassium 4.3 mmol/L (3.5-5.1); Sodium 137 mmol/L (136-145); Total Bilirubin 1.5 mg/dL (0.15-1.2); Total Iron Binding Capacity 260 mcg/dl; Total Protein 7.5 g/dL (6.6-8.7); Unsaturated Iron Binding 216 ug/dL (112-347)
[2024-09-17 14:01] LABS: Reticulocyte % 1.5 % (0.5-2.0)
[2024-09-17 14:19] LABS: Lactate Dehydrogenase 190 U/L (135-214)
[2024-09-30 10:47] VITALS: BP 134/61; PULSE 58; RESP 16; TEMP 36.6; O2SAT 94
[2024-09-30] MEDS: methylPREDNISolone sod succ 40 mg/mL INJ IVP (11:23)
[2024-09-30] MEDS: acetaminophen 325 mg Tablet 650 MG PO (11:23)
[2024-09-30] MEDS: diphenhydrAMINE 50 mg/mL SDV 1mL 25 MG IVP (11:26)
[2024-09-30] MEDS: INFLIXIMAB AXXQ IV (12:29)
[2024-09-30] MEDS: SODIUM CHLORIDE 0.9% IV (12:29)
[2024-09-30 12:35] VITALS: BP 118/52; PULSE 54; RESP 15; TEMP 36.9; O2SAT 92
[2024-09-30 13:45] VITALS: BP 120/55; PULSE 58; RESP 17; O2SAT 96
== END 2024-10-05 23:59 | disposition home or self-care (01) ==
PROVIDERS: PCP Registered Nurse; Visit Provider Nurse Practitioner Family
DX: Z53.9 Procedure and treatment not carried out, unspecified reason (principal); M05.9 Rheumatoid arthritis with rheumatoid factor, unspecified; Z79.899 Other long term (current) drug therapy; Z79.620 Long term (current) use of immunosuppressive biologic
CPT/HCPCS: 36415; 80053; 82247; 82248; 82728; 83010; 83540; 83550; 83615; 85025; 85045; 96375; 96413; A4222; J1200; J2919; J7050; Q5121

== ENCOUNTER → 2024-11-03 10:32 | Outpatient (BNVA) | payer MEDICARE, MEDICAID, SELFPAY | PROVIDERS: PCP Registered Nurse; Visit Provider Podiatrist Foot & Ankle Surgery | DX: M79.671 Pain in right foot (principal); N18.9 Chronic kidney disease, unspecified; M05.79 Rheumatoid arthritis with rheumatoid factor of multiple sites without organ or systems involvement; Z79.01 Long term (current) use of anticoagulants; G57.93 Unspecified mononeuropathy of bilateral lower limbs; M19.071 Primary osteoarthritis, right ankle and foot; M19.072 Primary osteoarthritis, left ankle and foot; M20.41 Other hammer toe(s) (acquired), right foot; M20.42 Other hammer toe(s) (acquired), left foot; M21.611 Bunion of right foot; M21.612 Bunion of left foot; R03.0 Elevated blood-pressure reading, without diagnosis of hypertension; M06.30 Rheumatoid nodule, unspecified site; I48.91 Unspecified atrial fibrillation; G45.8 Other transient cerebral ischemic attacks and related syndromes; I10 Essential (primary) hypertension; I48.20 Chronic atrial fibrillation, unspecified; I50.32 Chronic diastolic (congestive) heart failure; R06.02 Shortness of breath; R07.9 Chest pain, unspecified | CPT/HCPCS: 93005; 99213 ==

== ENCOUNTER 2024-11-03 13:00 | Oncology outpatient (recurring) (ONCR) | payer MEDICARE, MEDICAID, SELFPAY ==
[2024-10-28 11:25] LABS: Basophils % 0.7 %; Eosinophils # 0.1 10^3/uL (0.0-0.8); Eosinophils % 3.1 %; Hematocrit 43.8 % (36-47); Lymphocytes # 1.1 10^3/uL (0.8-4.8); Lymphocytes % 25.8 %; Mean Corpuscular HGB Conc 30.1 g/dL (30-55); Mean Corpuscular Hemoglobin 23.9 pg (27-33); Mean Corpuscular Volume 79.3 fl (85-98); Mean Platelet Volume 9.8 fL (7.4-10.4); Monocytes # 0.4 10^3/uL (0.2-0.9); Monocytes % 9.6 %; Neutrophils # 2.53 10^3/uL (1.8-7.7); Neutrophils % 60.6 %; Nucleated Red Blood Cells % 0 %; Platelet Count 279 10^3/cmm (157-399); Red Blood Count 5.52 10^6/uL (3.85-5.65); Red Cell Distribution Width 17.4 % (12.1-15.1); White Blood Count 4.18 10^3/uL (3.29-11.43)
[2024-10-28 11:45] LABS: Alanine Aminotransferase 6 U/L (0-33); Albumin Level 3.8 g/dL (3.5-5.2); Alkaline Phosphatase 81 U/L (35-105); Blood Urea Nitrogen 13 mg/dL (8-23); Calcium 9.2 mg/dL (8.5-10.5); Carbon Dioxide 27 mmol/L (22-29); Chloride 101 mmol/L (98-107); Ferritin 133 ng/mL (15-150); Globulin 3.7 g/dL (1.3-4.6); Glucose 90 mg/dL (65-115); Iron 38 ug/dL (37-145); Osmolality Calculated 288 mOsm/kg (285-295); Sodium 139 mmol/L (136-145); Total Bilirubin 1.1 mg/dL (0.15-1.2); Total Protein 7.5 g/dL (6.6-8.7)
[2024-10-28] MEDS: sodium chloride 0.9% 250 ML 100 ML IV (11:51)
[2024-10-28] MEDS: diphenhydrAMINE 50 mg/mL SDV 1mL 25 MG IVP (11:52)
[2024-10-28] MEDS: methylPREDNISolone sod succ 40 mg/mL INJ IVP (11:53)
[2024-10-28] MEDS: acetaminophen 325 mg Tablet 650 MG PO (11:54)
[2024-10-28] MEDS: SODIUM CHLORIDE 0.9% IV (12:33)
[2024-10-28] MEDS: INFLIXIMAB AXXQ IV (12:33)
[2024-10-28 12:34] LABS: Anion Gap 15.6 (5-19); Aspartate Amino Transferase 16 U/L (0-32); Percent Saturation 13.9 % (20-50); Potassium 4.6 mmol/L (3.5-5.1); Total Iron Binding Capacity 273 mcg/dl; Unsaturated Iron Binding 235 ug/dL (112-347)
[2024-10-28 14:01] VITALS: BP 126/78; PULSE 64; TEMP 37.1; O2SAT 92
[2024-11-03] MEDS: iron sucrose 300 MG in sodium chloride 0.9% (100 ml) 100 ML 230 MG IV (12:41)
[2024-11-03 12:50] VITALS: BP 91/68; PULSE 61; RESP 17; TEMP 36.6; O2SAT 95
[2024-11-03 13:28] VITALS: BP 112/66; PULSE 76; RESP 16; TEMP 36.5; O2SAT 94
== END 2024-11-05 23:59 | disposition home or self-care (01) ==
PROVIDERS: PCP Registered Nurse; Visit Provider Nurse Practitioner Family
DX: Z53.9 Procedure and treatment not carried out, unspecified reason; D50.9 Iron deficiency anemia, unspecified; M81.0 Age-related osteoporosis without current pathological fracture; M05.9 Rheumatoid arthritis with rheumatoid factor, unspecified; I50.32 Chronic diastolic (congestive) heart failure; I48.20 Chronic atrial fibrillation, unspecified; I11.0 Hypertensive heart disease with heart failure; G45.8 Other transient cerebral ischemic attacks and related syndromes; I65.23 Occlusion and stenosis of bilateral carotid arteries; Z86.711 Personal history of pulmonary embolism; Z79.899 Other long term (current) drug therapy
CPT/HCPCS: 80053; 82728; 83540; 83550; 85025; 96365; 96413; 99213; 99214; A4222; J1200; J1756; J2919; J7050; Q5121

== ENCOUNTER 2024-11-30 09:51 | Outpatient (CLI) | payer MEDICARE, MEDICAID, SELFPAY ==
--- NOTE | 2024-11-30 | ECG_ITS ---
[facility] Date: 2024-11-30 Pat Name: Laila Maloney Department: Room: Gender: Female Bulkhead Carpenter: : 1955 Requested By: Tracey Meek Order Number: [id number] Patricia MD: Eitan Vivas M.D. Interpretive Statements LEXISCAN: Procedure: At the baseline, the blood pressure was 147/72 mmHg with a heart rate of 53 bpm. The electrocardiogram showed sinus bradycardia, normal axis with normal ST and T's. The Lexiscan was infused over a period of 20 seconds. A total of 0.4 mg of Lexiscan was infused. The stress phase was continued for a total of 5 minutes. Heart rate was at the end of stress phase was 60bpm and a blood pressure of 122/60 mmHg. The EKG at the peak infusion revealed normal sinus rhythm with no significant ST-T wave changes. Sestamibi was injected 20 seconds after the Lexiscan infusion. Blood pressure at the end of recovery phase was 122/60 mmHg with a heart rate of 56 bpm. Conclusion: 1. Normal EKG response to Lexiscan infusion 2. No Lexiscan induced chest pain or cardiac arrhythmia. 3. Normal blood pressure and heart rate response. 4. Sestamibi/sestamibi perfusion scan pending; see separate report. Electronically Signed On 12-21-2024 22:10:59 CDT by Eitan Vivas M.D. [id number]
[2024-11-30 10:24] VITALS: BMI 30.2
--- NOTE | 2024-11-30 10:24 | NMCV_ITS ---
NM gianfranco perf SPECT r/s* [id number] Laila Maloney Age: 69 Gender: F : 1955 Exam Date: 11/30/2024 11:23 Ordering Phys: Tracey Meek NP Technologist: ELSIE Marino Exam Location: [facility] Indications: CP STRESS TEST Please see separate stress test report in [facility] for full findings IMAGE PROTOCOL Rest/Stress 1 Lexiscan Day Radiopharmaceutical Dose (mCi) Administration Site Administered by Rest: Tc-99m 11 IV Gaviota Conway, BRICK CHIMNEY SUPERVISOR Sestamibi Stress:Tc-99m 33 IV Gaviota Togle, BRICK CHIMNEY SUPERVISOR Sestamibi Rest: 30-Nov-2024 60 Discovery 630 Stress: 30-Nov-2024 30 Discovery 630 0.4mg Lexiscan. Supine position only as patient was unable to lay prone. SPECT RESULTS Technical Quality: Good Raw Data Analysis: Normal Image Corrections: No attenuation or motion correction applied Summed Stress Score: 1 Summed Rest Score: 0 Summed Difference Score: 1 PERFUSION FINDINGS FUNCTIONAL RESULTS (calculated via Gated SPECT) Stress Image LV EF (%): 81 Stress EDV (mL):54 TID: 0.91 Stress ESV (mL):10 FUNCTIONAL FINDINGS: There is normal left ventricular systolic function. IMPRESSIONS Myocardial perfusion imaging is normal. Carlos Mehta MD (Electronically Signed) Final Date: 30 November 2024 21:09 S
[2024-11-30] MEDS: regadenoson 0.4 Mg/5 ml Syringe IVP (11:50)
[2024-11-30 12:05] VITALS: BP 122/64; PULSE 57
--- NOTE | 2024-11-30 13:17 | USCV_ITS ---
Laila Maloney Age: 69 Gender: F : 1955 Exam Date: 11/30/2024 13:31 Ordering Phys: Tracey Meek NP Technologist: [place] [facility] [place]: cp BP: 130 / 75 HR: 54 Rhythm: Sinus Technical Quality: Adequate MEASUREMENTS (Male / Female) Normal Values 2D ECHO LV Diastolic Diameter PLAX 3.5 cm 4.2 - 5.9 / 3.9 - 5.3 cm IVS Diastolic Thickness 1.0 cm 0.6 - 1.0 / 0.6 - 0.9 cm IVS Systolic Thickness 1.4 cm LVPW Diastolic Thickness 1.4 cm 0.6 - 1.0 / 0.6 - 0.9 cm LVPW Systolic Thickness 1.9 cm LVOT Diameter 2.0 cm LV Ejection Fraction 2D Teich 62.7 % LV Ejection Fraction MOD 4C 52.2 % LV Ejection Fraction MOD 2C 68.9 % LV Ejection Fraction 2C AL 69.8 % LA Diameter 4.8 cm RA Systolic Volume 4C AL 69.7 ml RA Systolic Volume 4C MOD 66.9 ml Aorta at Sinotubular Diameter 3.3 cm IVC Diameter 2.3 cm M-MODE LA Ao Ratio MM 1.7 AV Cusp Separation MM 2.0 cm DOPPLER AV Peak Velocity 193.7 cm/s LVOT Peak Velocity 108.0 cm/s AV Area Cont Eq vti 1.8 cm squared AV Area Cont Eq pk 1.8 cm squared MV Peak Velocity 197.0 cm/s MV Area PHT 3.3 cm squared Mitral E to A Ratio 1.4 TV Peak Velocity 174.0 cm/s TR Peak Velocity 218.0 cm/s TR Peak Gradient 19.0 mmHg TV Peak E Velocity 104.0 cm/s PV Peak Velocity 78.5 cm/s FINDINGS Left Ventricle Normal left ventricular size, systolic function and wall thickness, with no regional wall motion abnormalities. Left ventricular ejection fraction is estimated at 60%. Grade III/IV diastolic dysfunction (restrictive filling pattern), severely elevated filling pressures. Right Ventricle The right ventricle is normal in size and function. Right Atrium Severely increased right atrial size. Left Atrium Severely increased left atrial size. Mitral Valve Moderately thickened mitral valve. Severe mitral annular calcification. No mitral valve stenosis. Trace mitral valve regurgitation. Aortic Valve Moderate aortic valve calcification. Mild aortic valve stenosis, mean gradient 7.3 mmHg, YESSICA 1.8 cm squared. Trace aortic valve regurgitation. Tricuspid Valve Structurally normal tricuspid valve without significant stenosis or regurgitation. Pulmonary artery systolic pressure is normal. Pulmonic Valve Structurally normal pulmonic valve without significant stenosis. There is no pulmonic regurgitation. Pericardium Normal pericardium without effusion. Aorta Normal ascending aorta dimension. IVC The inferior vena cava appears normal. CONCLUSIONS Normal left ventricular size, systolic function and wall thickness, with no regional wall motion abnormalities. Left ventricular ejection fraction is estimated at 60%. Grade III/IV diastolic dysfunction (restrictive filling pattern), severely elevated filling pressures. Moderate aortic valve calcification. Mild aortic valve stenosis, mean gradient 7.3 mmHg, YESSICA 1.8 cm squared. Trace aortic valve regurgitation. Moderately thickened mitral valve. Severe mitral annular calcification. No mitral valve stenosis. Trace mitral valve regurgitation. There is no pericardial effusion. Right atrial pressure is around 5 mm of mercury. Carlos Mehta MD (Electronically Signed) Final Date: 13 December 2024 11:21 S
== END 2024-11-30 09:52 | disposition home or self-care (01) ==
PROVIDERS: PCP Registered Nurse; Visit Provider Nurse Practitioner Family
DX: R07.9 Chest pain, unspecified (principal); R93.1 Abnormal findings on diagnostic imaging of heart and coronary circulation; I51.7 Cardiomegaly; I34.81 Nonrheumatic mitral (valve) annulus calcification; I35.8 Other nonrheumatic aortic valve disorders; I35.0 Nonrheumatic aortic (valve) stenosis; I35.1 Nonrheumatic aortic (valve) insufficiency
CPT/HCPCS: 36415; 78452; 93017; 93306; 96374; A9500; J2785

== ENCOUNTER 2024-12-02 09:30 | Oncology outpatient (recurring) (ONCR) | payer MEDICARE, MEDICAID, SELFPAY ==
[2024-11-22] MEDS: denosumab 60 mg SDV SUBCUT (14:10)
[2024-11-22 14:12] VITALS: BP 99/63; PULSE 70; RESP 16; TEMP 37; O2SAT 96
[2024-12-02] MEDS: sodium chloride 0.9% 250 ML 75 ML IV (10:59)
[2024-12-02] MEDS: diphenhydrAMINE 50 mg/mL SDV 1mL 25 MG IVP (11:00)
[2024-12-02] MEDS: acetaminophen 325 mg Tablet 650 MG PO (11:01)
[2024-12-02] MEDS: methylPREDNISolone sod succ 125 mg/2 mL INJ 40 MG IVP (11:06)
[2024-12-02 11:08] VITALS: BP 148/80; PULSE 52; RESP 18; TEMP 37.2; O2SAT 95
[2024-12-02] MEDS: SODIUM CHLORIDE 0.9% IV (11:38)
[2024-12-02] MEDS: INFLIXIMAB AXXQ IV (11:38)
[2024-12-02 13:09] VITALS: BP 142/82; PULSE 62; RESP 16; TEMP 36.4; O2SAT 97
== END 2024-12-03 23:59 | disposition home or self-care (01) ==
PROVIDERS: PCP Registered Nurse; Visit Provider Nurse Practitioner Family
DX: Z53.9 Procedure and treatment not carried out, unspecified reason; M05.9 Rheumatoid arthritis with rheumatoid factor, unspecified; Z79.899 Other long term (current) drug therapy
CPT/HCPCS: 93306; 96372; 96375; 96413; A4222; J0897; J1200; J2919; J7050; Q5121

== ENCOUNTER → 2024-12-13 13:17 | Outpatient (BNVA) | payer MEDICARE, MEDICAID, SELFPAY | PROVIDERS: PCP Registered Nurse; Visit Provider Internal Medicine Rheumatology | DX: M05.79 Rheumatoid arthritis with rheumatoid factor of multiple sites without organ or systems involvement (principal); Z79.899 Other long term (current) drug therapy; Z71.85 Encounter for immunization safety counseling; M85.80 Other specified disorders of bone density and structure, unspecified site | CPT/HCPCS: 99214 ==

== ENCOUNTER 2024-12-30 10:04 | Oncology outpatient (recurring) (ONCR) | payer MEDICARE, MEDICAID, SELFPAY ==
[2024-12-30] MEDS: sodium chloride 0.9% 250 ML 75 ML IV (11:58)
[2024-12-30] MEDS: acetaminophen 325 mg Tablet 650 MG PO (11:59)
[2024-12-30] MEDS: methylPREDNISolone sod succ 40 mg/mL INJ IVP (11:59)
[2024-12-30] MEDS: diphenhydrAMINE 50 mg/mL SDV 1mL 25 MG IVP (12:04)
[2024-12-30] MEDS: INFLIXIMAB AXXQ IV (12:28)
[2024-12-30] MEDS: SODIUM CHLORIDE 0.9% IV (12:28)
[2024-12-30 13:39] VITALS: BP 153/78; PULSE 55; RESP 18; TEMP 37.1; O2SAT 92
== END 2025-01-03 23:59 | disposition home or self-care (01) ==
LOC: ONCMED 10:04
PROVIDERS: PCP Registered Nurse; Visit Provider Nurse Practitioner Family
DX: M05.9 Rheumatoid arthritis with rheumatoid factor, unspecified (principal); Z79.899 Other long term (current) drug therapy; M85.80 Other specified disorders of bone density and structure, unspecified site
CPT/HCPCS: 96413; A4222; J1200; J2919; J7050; J9999; Q5121

== ENCOUNTER 2025-01-27 10:11 | Oncology outpatient (recurring) (ONCR) | payer OTHER, MEDICAID, SELFPAY ==
[2025-01-27 11:27] LABS: Basophils % 0.8 %; Eosinophils # 0.3 10^3/uL (0.0-0.8); Hematocrit 47.6 % (36-47); Lymphocytes # 1.4 10^3/uL (0.8-4.8); Lymphocytes % 27.8 %; Mean Corpuscular HGB Conc 30.9 g/dL (30-55); Mean Corpuscular Hemoglobin 26.3 pg (27-33); Mean Platelet Volume 9.6 fL (7.4-10.4); Monocytes # 0.5 10^3/uL (0.2-0.9); Monocytes % 8.9 %; Neutrophils # 2.89 10^3/uL (1.8-7.7); Neutrophils % 57.3 %; Nucleated Red Blood Cells % 0 %; Platelet Count 243 10^3/cmm (157-399); Red Cell Distribution Width 16.6 % (12.1-15.1); White Blood Count 5.04 10^3/uL (3.29-11.43)
[2025-01-27 11:28] LABS: Reticulocyte % 1.1 % (0.5-2.0)
[2025-01-27 11:50] LABS: Alanine Aminotransferase 8 U/L (0-33); Albumin Level 4.2 g/dL (3.5-5.2); Alkaline Phosphatase 70 U/L (35-105); Anion Gap 15.2 (5-19); Aspartate Amino Transferase 14 U/L (0-32); Blood Urea Nitrogen 18 mg/dL (8-23); Calcium 8.6 mg/dL (8.5-10.5); Carbon Dioxide 26 mmol/L (22-29); Chloride 101 mmol/L (98-107); Creatinine Clr Calc Pharmacy 57.1719; Ferritin 148 ng/mL (15-150); Globulin 3.7 g/dL (1.3-4.6); Glucose 92 mg/dL (65-115); Iron 54 ug/dL (37-145); Osmolality Calculated 288 mOsm/kg (285-295); Percent Saturation 18.6 % (20-50); Potassium 4.2 mmol/L (3.5-5.1); Sodium 138 mmol/L (136-145); Total Bilirubin 1.1 mg/dL (0.15-1.2); Total Iron Binding Capacity 290 mcg/dl; Total Protein 7.9 g/dL (6.6-8.7); Unsaturated Iron Binding 236 ug/dL (112-347)
[2025-01-27 12:06] LABS: Lactate Dehydrogenase 181 U/L (135-214); Vitamin B12 276 pg/mL (232-1245)
[2025-01-27] MEDS: sodium chloride 0.9% 250 ML 75 ML IV (13:05)
[2025-01-27] MEDS: methylPREDNISolone sod succ 40 mg/mL INJ IVP (13:05)
[2025-01-27] MEDS: acetaminophen 325 mg Tablet 650 MG PO (13:06)
[2025-01-27] MEDS: diphenhydrAMINE 50 mg/mL SDV 1mL 25 MG IVP (13:12)
[2025-01-27] MEDS: INFLIXIMAB AXXQ IV (13:52)
[2025-01-27] MEDS: SODIUM CHLORIDE 0.9% IV (13:52)
[2025-01-27 15:04] VITALS: BP 130/79; PULSE 57; RESP 17; TEMP 36.2; O2SAT 93
== END 2025-02-02 23:59 | disposition home or self-care (01) ==
PROVIDERS: Internal Medicine; PCP Registered Nurse; Visit Provider Nurse Practitioner Family
DX: M05.9 Rheumatoid arthritis with rheumatoid factor, unspecified (principal); M85.80 Other specified disorders of bone density and structure, unspecified site; D50.9 Iron deficiency anemia, unspecified; M81.0 Age-related osteoporosis without current pathological fracture; G43.809 Other migraine, not intractable, without status migrainosus; Z79.899 Other long term (current) drug therapy
CPT/HCPCS: 80053; 82607; 82728; 82746; 83010; 83540; 83550; 83615; 85025; 85045; 96365; 99213; A4222; J1200; J2919; J7050; J9999; Q5121

== ENCOUNTER → 2025-02-02 13:18 | Outpatient (BNVA) | payer OTHER, MEDICAID, SELFPAY | PROVIDERS: PCP Registered Nurse; Visit Provider Internal Medicine | DX: I13.0 Hypertensive heart and chronic kidney disease with heart failure and stage 1 through stage 4 chronic kidney disease, or unspecified chronic kidney disease (principal); I50.32 Chronic diastolic (congestive) heart failure; N18.9 Chronic kidney disease, unspecified; I48.20 Chronic atrial fibrillation, unspecified; I65.23 Occlusion and stenosis of bilateral carotid arteries; Z79.01 Long term (current) use of anticoagulants | CPT/HCPCS: 99214 ==

== ENCOUNTER 2025-02-24 08:46 | Oncology outpatient (recurring) (ONCR) | payer OTHER, MEDICAID, SELFPAY ==
[2025-02-24 09:29] VITALS: BP 147/81; PULSE 55; RESP 16; TEMP 36.6; O2SAT 97
[2025-02-24] MEDS: sodium chloride 0.9% 250 ML 75 ML IV (10:43)
[2025-02-24] MEDS: diphenhydrAMINE 50 mg/mL SDV 1mL 25 MG IVP (10:44)
[2025-02-24] MEDS: acetaminophen 325 mg Tablet 650 MG PO (10:44)
[2025-02-24] MEDS: methylPREDNISolone sod succ 40 mg/mL INJ IVP (10:51)
[2025-02-24] MEDS: INFLIXIMAB AXXQ IV (12:03)
[2025-02-24] MEDS: SODIUM CHLORIDE 0.9% IV (12:03)
[2025-02-24 13:25] VITALS: BP 135/77; PULSE 55; RESP 17; TEMP 36.6; O2SAT 96
== END 2025-03-05 23:59 | disposition home or self-care (01) ==
PROVIDERS: PCP Registered Nurse; Visit Provider Nurse Practitioner Family
DX: M05.9 Rheumatoid arthritis with rheumatoid factor, unspecified (principal); Z79.899 Other long term (current) drug therapy
CPT/HCPCS: 96375; 96413; A4222; J1200; J2919; J7050; J9999; Q5121

== ENCOUNTER 2025-03-29 08:48 | Oncology outpatient (recurring) (ONCR) | payer OTHER, MEDICAID, SELFPAY ==
[2025-03-29 09:44] LABS: Basophils % 0.7 %; Eosinophils # 0.3 10^3/uL (0.0-0.8); Eosinophils % 8.3 %; Hematocrit 48.6 % (36-47); Lymphocytes # 1.1 10^3/uL (0.8-4.8); Lymphocytes % 26.1 %; Mean Corpuscular HGB Conc 31.3 g/dL (30-55); Mean Corpuscular Volume 86.5 fl (85-98); Mean Platelet Volume 10.2 fL (7.4-10.4); Monocytes # 0.2 10^3/uL (0.2-0.9); Monocytes % 5.4 %; Neutrophils # 2.43 10^3/uL (1.8-7.7); Neutrophils % 59.3 %; Nucleated Red Blood Cells % 0 %; Platelet Count 229 10^3/cmm (157-399); Red Blood Count 5.62 10^6/uL (3.85-5.65); Red Cell Distribution Width 15.9 % (12.1-15.1)
[2025-03-29] MEDS: sodium chloride 0.9% 250 ML 75 ML IV (09:49)
[2025-03-29] MEDS: acetaminophen 325 mg Tablet 650 MG PO (09:51)
[2025-03-29 09:52] LABS: Erythrocyte Sedimentation Rate 29 mm/hr (0-15)
[2025-03-29] MEDS: methylPREDNISolone sod succ 40 mg/mL INJ IVP (09:52)
[2025-03-29] MEDS: diphenhydrAMINE 50 mg/mL SDV 1mL 25 MG IVP (09:52)
[2025-03-29 10:05] LABS: Albumin Level 4.3 g/dL (3.5-5.2); Alkaline Phosphatase 74 U/L (35-105)
[2025-03-29] MEDS: INFLIXIMAB AXXQ IV (10:22)
[2025-03-29] MEDS: SODIUM CHLORIDE 0.9% IV (10:22)
[2025-03-29 10:31] LABS: Alanine Aminotransferase 6 U/L (0-33); Aspartate Amino Transferase 15 U/L (0-32); Bilirubin Direct 0.38 mg/dL (0.00-0.30); C Reactive Protein 14.3 mg/L (0.0-4.9); Globulin 3.6 g/dL (1.3-4.6); Total Bilirubin 1.4 mg/dL (0.15-1.2); Total Protein 7.9 g/dL (6.6-8.7)
[2025-03-29 11:43] VITALS: BP 143/76; PULSE 64; RESP 18; TEMP 36.2; O2SAT 96
== END 2025-04-04 23:59 | disposition home or self-care (01) ==
LOC: ONCMED 08:48
PROVIDERS: Internal Medicine Rheumatology; PCP Registered Nurse; Visit Provider Nurse Practitioner Family
DX: M05.9 Rheumatoid arthritis with rheumatoid factor, unspecified (principal); Z79.899 Other long term (current) drug therapy
CPT/HCPCS: 80076; 82565; 85025; 85651; 86140; 96375; 96413; A4222; J1200; J2919; J7050; J9999; Q5121

== ENCOUNTER → 2025-04-05 09:12 | Outpatient (BNVA) | payer MEDICARE, MEDICAID, SELFPAY | PROVIDERS: PCP Registered Nurse; Visit Provider Internal Medicine Rheumatology | DX: M05.79 Rheumatoid arthritis with rheumatoid factor of multiple sites without organ or systems involvement (principal); Z71.85 Encounter for immunization safety counseling; Z79.899 Other long term (current) drug therapy; M85.80 Other specified disorders of bone density and structure, unspecified site; M21.949 Unspecified acquired deformity of hand, unspecified hand | CPT/HCPCS: 99214 ==

== ENCOUNTER 2025-04-18 11:07 | Emergency (ER) | payer MEDICARE, MEDICAID, SELFPAY ==
--- OUTSIDE RECORDS SUMMARY | 2021-05-11 09:40 | XMS_ITS | Continuity of Care Document ---
Author Organization Annamarie Salmeron MD Address [address] [place] [address] Phone Care Team Providers Care Staff Radiation Therapist Name Role Phone Annamarie Salmeron MD Unavailable Unavailable Advance Directives Directive Yes / No Effective Date File Name No Information Encounters Encounter Description Practice Location Reason(s) For Visit Diagnoses Date Provider Providers Copied on Encounter Annamarie Salmeron MD, [address] [facility] [address], [place], [place], [id number], tel:[phone] Annamarie Salmeron No Information Jaron De Luna. [address] [facility] [address], [place], [place], [id number]. tel:[phone] Family History Family Member Type Diagnosis Age At Onset No Information Payers Payer name Insurance type Covered libertarian ID Authoriza tion(s) No Information Social History Type Description Quantity Date Captured Comments Sex Female Smoking Status No Information Chief Complaint And Reason For Visit No Information Reason For Referral Reason For Referral No Information History Of Present Illness Encounter Date Complaint History Of Prese nt Illness No Information Functional Status Date Functional Assessmen t No Information Instructions Date Instruction Additional Infor mation No Information Assessments Type Assessment Date No Information Patient Care Teams Name Effective Dates (start - stop) Status Members No Information
[2025-04-18 11:24] VITALS: BP 150/59; PULSE 42; RESP 16; TEMP 36.6; O2SAT 97; BMI 31.2
--- OUTSIDE RECORDS SUMMARY | 2025-04-18 11:25 | XMS_ITS | Encounter Summary ---
Author Organization [facility] [facility] Address [address] [place] [address] Care Team Providers Care Senior It Engineer Name Role Phone JEANNINE Michaud Sr., Michael Dave Primary Care Pro vider Encounter Details Date Type Department Care Team (Late st Contact Info) Description 02/19/2018 Ancillary Orders [employer] [facility] [address] [place] [address] Mike Michaud Sr., FNP [address] [place] [address] Follow-up exam Social History Tobacco Use Types Packs/Day Years Used Date Smoking Tobacco: Never Smokeless Tobacco: Never Alcohol Use Standard Drinks/Week Comments No 0 (1 standard drink = 0.6 oz pur e alcohol) Comments No Sex and Gender Information Value Date Recorded Sex Assigned at Not on file Legal Sex Female 3:53 PM 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 [id number] Narrative 02/19/2018 3:53 PM CDT Exam: XR CHEST PA AND LATERAL 2 VW Date/Time of Exam: 02/19/2018 2:45 PM Reason For Exam: Follow-up exam. Comparison: 02/09/2018. Findings: There is redemonstration of a moderate-sized right pleural effusion with adjacent basilar consolidation which could reflect atelectasis and/or infiltrate appearing overall similar to the previous exam. The left lung field remains clear. No appreciable pneumothorax. The visible cardiomediastinal contours appear stable. Procedure Note Maciel Degroot, DO - 02/19/2018 Exam: XR CHEST PA AND LATERAL 2 VW Date/Time of Exam: 02/19/2018 2:45 PM Reason For Exam: Follow-up exam. Comparison: 02/09/2018. Findings: There is redemonstration of a moderate-sized right pleural effusion with adjacent basilar consolidation which could reflect atelectasis and/or infiltrate appearing overall similar to the previous exam. The left lung field remains clear. No appreciable pneumothorax. The visible cardiomediastinal contours appear stable. IMPRESSION: No significant interval change in right pleural effusion and adjacent basilar consolidation. [id number] us JEANNINE Rene Sr. DIAGNOSTIC IMAGIN G ORDERABLES Final Result documented in this encounter Visit Diagnoses Diagnosis Follow-up exam Unspecified follow-up examination Follow-up exam Unspecified follow-up examination documented in this encounter Care Teams Senior It Engineer Relationship Specialty Start Date End Date Mike Michaud Sr., FNP [address] [place] [address] PCP - General NURSE PRACTITIONER 09/26/17 documented as of this encounter
--- OUTSIDE RECORDS SUMMARY | 2025-04-18 11:25 | XMS_ITS | Encounter Summary ---
Author Organization [employer] [facility] Address [address] [place] [address] Care Team Providers Care Breakdown Person Name Role Phone JEANNINE Michaud Sr., Michael Dave Primary Care Pro vider Encounter Details Date Type Department Care Team (Late st Contact Info) Description 02/09/2018 Ancillary Orders [employer] [place] [address] [place] [address] Mike Michaud Sr., FNP [address] [place], [place] [address] Pneumonia, viral Social History Tobacco Use Types Packs/Day Years Used Date Smoking Tobacco: Never Smokeless Tobacco: Never Alcohol Use Standard Drinks/Week Comments No 0 (1 standard drink = 0.6 oz pur e alcohol) Comments No Sex and Gender Information Value Date Recorded Sex Assigned at Not on file 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 Exam: XR CHEST PA AND LATERAL 2 VW Date/Time of Exam: 02/09/2018 11:45 AM Reason For Exam: Pneumonia, viral. Findings: Compared with 02/02/2018, right pleural effusion again noted. Indeterminate position of the right hemidiaphragm limits assessment of the size of the effusion. Left lung is clear. No left pleural abnormality is seen. Cardiomediastinal contours unremarkable where visualized. Vertebral plasty of mildly compressed vertebral body near the thoracolumbar junction again noted. IMPRESSION: Right pleural effusion with subjacent atelectasis and/or airspace disease again noted. Indeterminate position of the right hemidiaphragm limiting assessment of the size of the pleural parenchymal abnormalities. Decubitus view or CT could be performed for further assessment if clinically warranted. Right basilar atelectasis and/or airspace disease. [id number] Narrative Procedure Note Robbi Crawford MD - 02/09/2018 IMPRESSION: Please see below. Exam: XR CHEST PA AND LATERAL 2 VW Date/Time of Exam: 02/09/2018 11:45 AM Reason For Exam: Pneumonia, viral. Findings: Compared with 02/02/2018, right pleural effusion again noted. Indeterminate position of the right hemidiaphragm limits assessment of the size of the effusion. Left lung is clear. No left pleural abnormality is seen. Cardiomediastinal contours unremarkable where visualized. Vertebral plasty of mildly compressed vertebral body near the thoracolumbar junction again noted. IMPRESSION: Right pleural effusion with subjacent atelectasis and/or airspace disease again noted. Indeterminate position of the right hemidiaphragm limiting assessment of the size of the pleural parenchymal abnormalities. Decubitus view or CT could be performed for further assessment if clinically warranted. Right basilar atelectasis and/or airspace disease. [id number] JEANNINE Rene Sr. DIAGNOSTIC IMAGIN G ORDERABLES Final Result documented in this encounter Visit Diagnoses Diagnosis Pneumonia, viral Viral pneumonia, unspecified Pneumonia, viral Viral pneumonia, unspecified documented in this encounter Care Teams Breakdown Person Relationship Specialty Start Date End Date Keily Pena, JEANNINE Rodriguez [address] [place] [address] PCP - General NURSE PRACTITIONER 09/26/17 documented as of this encounter
--- OUTSIDE RECORDS SUMMARY | 2025-04-18 11:25 | XMS_ITS | Encounter Summary ---
Author Organization [employer] [facility] Address [address] [place] [address] Care Team Providers Care Coin Purse Assembler Name Role Phone Keily Pena, JEANNINE, Mike Mccarthy Primary Care Pro vider Encounter Details Date Type Department Care Team (Late st Contact Info) Description 03/17/2018 Ancillary Orders [facility] [place] [address] [place] [address] Bishnu Castillo MD [address] [place] [phone] Other specified rheumatoid arthritis, multiple sites ([facility]) Social History Tobacco Use Types Packs/Day Years Used Date Smoking Tobacco: Never Smokeless Tobacco: Never Alcohol Use Standard Drinks/Week Comments No 0 (1 standard drink = 0.6 oz pur e alcohol) Comments No Sex and Gender Information Value Date Recorded Sex Assigned at Not on file 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 [id number] Narrative 03/17/2018 10:38 PM CDT Exam: XR HAND 3+ VW BILAT Date/Time of Exam: 03/17/2018 1:10 PM Reason For Exam: Other specified rheumatoid arthritis, multiple sites. Comparison: None. Findings: Three views of each hand are submitted. There is no evidence of an acute fracture or dislocation. Mild to moderate scattered arthritic changes are present. Scattered carpal lucencies are present suspicious for erosive changes. 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 There are associated chronic appearing joint deformities. The bone density is diminished. There is mild periarticular soft tissue swelling. Procedure Note Maciel Degroot, DO - 03/17/2018 Exam: XR HAND 3+ VW BILAT Date/Time of Exam: 03/17/2018 1:10 PM Reason For Exam: Other specified rheumatoid arthritis, multiple sites. Comparison: None. Findings: Three views of each hand are submitted. There is no evidence of an acute fracture or dislocation. Mild to moderate scattered arthritic changes are present. Scattered carpal lucencies are present suspicious for erosive changes. 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 There are associated chronic appearing joint deformities. The bone density is diminished. There is mild periarticular soft tissue swelling. 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 [id number] Bishnu Castillo MD DIAGNOSTIC IMAGING ORDERABLES F inal Result * XR CHEST PA AND LATERAL 2 VW (03/17/2018 1:10 PM CDT) Anatomical Region Laterality Modality Chest Computed Radiogr aphy 03/17/2018 1:10 PM CDT Impressions 03/17/2018 2:22 PM CDT IMPRESSION: See below. Exam: XR CHEST PA AND LATERAL 2 VW Date/Time of Exam: 03/17/2018 1:10 PM Reason For Exam: Other specified rheumatoid arthritis, multiple sites. Findings: There is a moderate to large right-sided pleural effusion with lack of aeration in the right mid and lower lung. The effusion has increased in size since 02/19/2018. The left lung is clear. No pneumothorax. There has been kyphoplasty of an upper lumbar vertebral body. [id number] Narrative Procedure Note Bob Lane MD - 03/17/2018 IMPRESSION: See below. Exam: XR CHEST PA AND LATERAL 2 VW Date/Time of Exam: 03/17/2018 1:10 PM Reason For Exam: Other specified rheumatoid arthritis, multiple sites. Findings: There is a moderate to large right-sided pleural effusion with lack of aeration in the right mid and lower lung. The effusion has increased in size since 02/19/2018. The left lung is clear. No pneumothorax. There has been kyphoplasty of an upper lumbar vertebral body. [id number] Bishnu Castillo MD DIAGNOSTIC IMAGING ORDERABLES F inal Result documented in this encounter Visit Diagnoses Diagnosis Other specified rheumatoid arthritis, multiple sites (CMS/HCC) Other specified rheumatoid arthritis, multiple sites (CMS/HCC) Other specified rheumatoid arthritis, multiple sites (CMS/HCC) documented in this encounter Care Teams Coin Purse Assembler Relationship Specialty Start Date End Date Keily Pena, JEANNINE Rodriguez [address] [place] [address] PCP - General NURSE PRACTITIONER 09/26/17 documented as of this encounter
--- OUTSIDE RECORDS SUMMARY | 2025-04-18 11:25 | XMS_ITS | Encounter Summary ---
Author Organization [employer] [facility] Address [address] [place] [address] Care Team Providers Care Wheel Blocker Name Role Phone JEANNINE Michaud Sr., Michael Dave Primary Care Pro vider Encounter Details Date Type Department Care Team (Late st Contact Info) Description 02/02/2018 Ancillary Orders [employer] [place] [address] [place] [address] Mike Michaud Sr., FNP [address] [place], [place] [address] Pneumonia, viral Social History Tobacco Use Types Packs/Day Years Used Date Smoking Tobacco: Never Smokeless Tobacco: Never Alcohol Use Standard Drinks/Week Comments No 0 (1 standard drink = 0.6 oz pur e alcohol) Comments No Sex and Gender Information Value Date Recorded Sex Assigned at Not on file 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 Exam: XR CHEST PA AND LATERAL 2 VW Date/Time of Exam: 02/02/2018 10:59 AM Reason For Exam: Pneumonia, viral. Findings: There is improved aeration of the right lung compared with 01/22/2018. There is a persistent moderate-sized right pleural effusion with hypoaeration in the right mid and lower lung. Left lung is clear. No pneumothorax. Mediastinal contours are grossly unremarkable. [id number] Narrative Procedure Note Bob Lane MD - 02/02/2018 IMPRESSION: See below. Exam: XR CHEST PA AND LATERAL 2 VW Date/Time of Exam: 02/02/2018 10:59 AM Reason For Exam: Pneumonia, viral. Findings: There is improved aeration of the right lung compared with 01/22/2018. There is a persistent moderate-sized right pleural effusion with hypoaeration in the right mid and lower lung. Left lung is clear. No pneumothorax. Mediastinal contours are grossly unremarkable. [id number] JEANNINE Rene Sr. DIAGNOSTIC IMAGIN G ORDERABLES Final Result documented in this encounter Visit Diagnoses Diagnosis Pneumonia, viral Viral pneumonia, unspecified Pneumonia, viral Viral pneumonia, unspecified documented in this encounter Care Teams Wheel Blocker Relationship Specialty Start Date End Date Mike Michaud Sr., FNP [address] [place] [address] PCP - General NURSE PRACTITIONER 09/26/17 documented as of this encounter
--- OUTSIDE RECORDS SUMMARY | 2025-04-18 11:25 | XMS_ITS | Encounter Summary ---
Author Organization [facility] Address [address] [place] [address] Care Team Providers Care Mechanical Engineering Manager Name Role Phone JEANNINE Michaud Sr., Michael Dave Primary Care Pro vider Encounter Details Date Type Department Care Team (Late st Contact Info) Description 09/26/2017 Ancillary Orders [facility] [address] [place] [address] Evy Manzo, WASTEWATER MANAGER [address] [place] [phone] Edema Social History Tobacco Use Types Packs/Day Years Used Date Smoking Tobacco: Never Assessed Comments Unknown Sex and Gender Information Value Date Recorded Sex Assigned at Not on file Legal Sex Female 3:53 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 Narrative 09/30/2017 9:27 AM DYE REEL OPERATOR HELPER XR CHEST PA AND LATERAL CLINICAL HISTORY: Edema COMPARISON: None FINDINGS: Mild hiatal hernia. Mild central vascular congestion. Cardiomediastinal silhouette is within normal limits. No focal consolidation, pleural effusion, or pneumothorax is seen. No acute osseous abnormality is appreciated. Procedure Note Bishnu Wall MD - 09/30/2017 XR CHEST PA AND LATERAL CLINICAL HISTORY: Edema COMPARISON: None FINDINGS: Mild hiatal hernia. Mild central vascular congestion. Cardiomediastinal silhouette is within normal limits. No focal consolidation, pleural effusion, or pneumothorax is seen. No acute osseous abnormality is appreciated. IMPRESSION: Mild central vascular congestion. Evy [place]UP DIAGNOSTIC IMAGING ORDERABL ES Final Result documented in this encounter Visit Diagnoses Diagnosis Edema Edema documented in this encounter Care Teams Mechanical Engineering Manager Relationship Specialty Start Date End Date Keily Pena, JEANNINE [address] [place] [address] PCP - General NURSE PRACTITIONER 09/26/17 documented as of this encounter
--- OUTSIDE RECORDS SUMMARY | 2025-04-18 11:25 | XMS_ITS | Clinical Summary ---
Author Organization [facility] Address [address] [facility] Attn: Epic Prelude ADT LUCINDA ALCARAZ [address] Care Team Providers Care Engineer Sergeant Name Role Phone Keily Pena, JEANNINE, Mike Mccarthy Primary Care Pro vider Allergies Active Allergy Reactions Criticality Noted Date Comments Alpha-Gal (Adxuefxga-Qijkq-0,3- Galactose) Abdominal Pain Low 12/20/2023 Aspirin Blood Disorder Medium 01/22/2018 Egg Other (See Comments) 01/22/2018 Pt states that a whole bunch of things happen. Shellfish Derived Anaphylaxis High 03/19/2023 Sulfa (Sulfonamide Antibiotics) Rash Low 01/22/2018 Medications apixaban (Eliquis) 5 mg tablet Take 5 mg by mouth 2 times daily. Active budesonide-formot Yolanda (SYMBICORT) 160-4.5 mcg/actuation HFA Aerosol Inhaler Take 2 Puffs by inhalation 2 times daily. Active cycloSPORINE (RESTASIS) 0.05 % emulsion 1 Drop 2 times daily. Active furosemide (LASIX) 20 mg tablet Take 10 mg by mouth daily. Active metoprolol tartrate (LOPRESSOR) 25 mg tablet Take 25 mg by mouth daily. Active pantoprazole (PROTONIX) 40 mg Tablet, Delayed Release (E.C.) Take 40 mg by mouth daily. Active potassium bicarbonate-citri c acid (EFFER-K) 20 mEq Tablet, Effervescent 20 mEq daily. Act ap topiramate (TOPAMAX) 25 mg capsule Take 25 mg by mouth daily. Active upadacitinib (Rinvoq) 15 mg Tablet Sustained Release 24HR Take 15 mg by mouth daily. Active cetirizine (ZyrTEC) 10 mg tablet Take 10 mg by mouth daily. 8 Active ipratropium/albut yolanda sulfate (COMBIVENT INHALATION) Take 3 Puffs by inhalation daily. 8 Active pregabalin (LYRICA) 25 mg Capsule Take 25 mg by mouth every 12 hours. 8 Active multivitamin (DAILY-JEWEL) tablet Take 1 Tablet by mouth daily. 8 Active predniSONE (DELTASONE) 20 mg tablet Take 20 mg by mouth 1 time daily as needed for Pain. Active Active Problems Problem Noted Date Diagnosed Date QT prolongation 02/21/2024 Overview (02/21/2024): As a result of Azithromycin while admitted for PNA. Multinodular goiter 02/21/2024 Overview (02/21/2024): Note on the CT chest Pleural effusion on right 02/12/2024 Pneumonia of left lower lobe due to infectious o rganism 02/12/2024 Acute cystitis with hematuria 02/12/2024 Chronic obstructive pulmonar y disease with acute lower respiratory infection 02/12/2024 Paroxysmal atrial fibrillation 02/12/2024 Rheumatoid arthritis involvi ng multiple sites with positive rheumatoid factor 02/12/2024 Chronic diastolic congestive heart failure 02/11 Moderate persistent asthma with acute exacerbati on 02/12/2024 Sacral back pain 08/20/2023 Pulmonary congestion 03/19/2023 Resolved Problems Problem Noted Date Diagnosed Date Resolved Date Head injury without concussi on or intracranial hemorrhage 08/20/2023 02/12/2024 Erythema migrans (Lyme disease) 03/19/2023 02/12/2024 Tick bite of left thigh 03/19/2023 05/06/2024 Encounters Date Type Department Care Team Description 04/05/2025 External Device Data [facility] Provider, Abstract 03/22/2025 External Device Data [facility] Provider, Abstract 02/01/2025 External Device Data [facility] Provider, Abstract 01/18/2025 External Device Data [facility] Provider, Abstract from Last 3 Months Social History Tobacco Use Types Packs/Day Years Used Date Smoking Tobacco: Never Smokeless Tobacco: Never Tobacco Cessation:Counseling Given: Not Answered Alcohol Use Standard Drinks/Week Comments No 0 (1 standard drink = 0.6 oz pur e alcohol) Feeling Safe Answer Date Recorded Are you in a relationship wi th someone who hurts you emotionally and/or physically? No 02/12/2024 Food Insecurity Answer Date Recorded Patient needs follow up regardin 02/01/2025 Transportation Needs Answer Date Record ed Patient needs follow up regardin 02/01/2025 Housing Stability Answer Date Recorded Social/Environmental Concerns No concerns Utility Needs Answer Date Recorded Patient needs follow up regardin 02/01/2025 Comments No Sex and Gender Information Value Date Recorded Sex Assigned at Not on file Legal Sex Female 4:51 AM IMPLEMENTATION TECHNICIAN Gender Identity Not on file Sexual Orientation Not on file Last Filed Vital Signs Vital Sign Reading Time Taken Comments Blood Pressure 141/50 02/13/2024 1:29 PM CDT Pulse 88 02/13/2024 1:29 PM CDT Temperature 36.6 C (97.9 F) 02/13/2024 1:29 PM CDT Respiratory Rate 18 02/13/2024 1:29 PM CDT Oxygen Saturation 99% 02/13/2024 1:29 PM CDT Inhaled Oxygen Concentration - - Weight 74.5 kg (164 lb 3.2 oz) 02/12/2024 9:40 A M CDT Height 152.4 cm (5') 02/12/2024 9:40 AM CDT Body Mass Index 32.07 02/12/2024 9:40 AM CDT Plan of Treatment Health Maintenance Due Date Last Done Comments DTAP/TDAP/TD VACCINES (1 - Tdap) 1972 PNEUMOCOCCAL VACCINE 50+ YEARS (1 of 2 - PCV) 05/04/19 72 BREAST CANCER SCREENING 1993 COLORECTAL SCREENING 1998 Colorectal Cancer Screening 1998 FIT-DNA Q 3 years 1998 FIT/FOBT Q 1 year 1998 Flex Sig/CT Colonography Q 5 years 1998 ZOSTER VACCINE (1 of 2) 2003 RSV VACCINE (60+ or ) (1 - Risk 60-74 years 1-dose series) 2013 OSTEOPOROSIS SCREENING 2018 INFLUENZA VACCINE (#1) [address] [address] DUAL COMPLETE PPO DSNP [facility] [id number] Advance Directives For more information, please contact: [phone] * Full Code (Latest Code Status on File) Date Activated Date Inactivated Comments 02/12/2024 8:05 PM 02/13/2024 9:03 PM Care Teams Engineer Sergeant Relationship Specialty Start Date End Date Keily Pena, JEANNINE Rodriguez [address] [place] [address] PCP - General NURSE PRACTITIONER 09/26/17
--- OUTSIDE RECORDS SUMMARY | 2025-04-18 11:26 | XMS_ITS | Clinical Summary ---
Author Organization [facility] Address [address] [address] Phone Care Team Providers Care Project Estimator Name Role Phone Keily Pena, JEANNINE, Mike Mccarthy Primary Care Pro vider Allergies Active Allergy Reactions Criticality Noted Date Comments Aspirin Blood Disorder Medium 01/22/2018 Egg Other (See Comments) 01/22/2018 Pt states that a whole bunch of things happen. Sulfa (Sulfonamide Antibiotics) Rash Low 01/22/2018 Medications predniSONE (DELTASONE) 1 mg tablet Take 2 mg by mouth daily. Active predniSONE (DELTASONE) 5 mg tablet Take 5 mg by mouth daily with breakfast. Active metoprolol tartrate (LOPRESSOR) 25 mg tablet Take 25 mg by mouth daily. Active pregabalin (LYRICA) 25 mg Capsule Take 25 mg by mouth every 12 hours. Active furosemide (LASIX) 20 mg tablet Take 20 mg by mouth daily. Active IPRATROPIUM/ALB UTEROL SULFATE (COMBIVENT INHALATION) Take 3 Puffs by inhalation daily. Active budesonide-form oterol (SYMBICORT) 160-4.5 mcg/actuation HFA Aerosol Inhaler Take 2 Puffs by inhalation 2 times daily. Active raNITIdine (ZANTAC) 150 mg tablet Take 150 mg by mouth 2 times daily. Active cetirizine (ZyrTEC) 10 mg tablet Take 10 mg by mouth daily. Active cholecalciferol , Vitamin D3, 5,000 unit Capsule Take 5,000 Units by mouth daily. Active multivitamin (DAILY-JEWEL) tablet Take 1 Tablet by mouth daily. 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 Gender Identity Not on file Sexual Orientation Not on file Last Filed Vital Signs Vital Sign Reading Time Taken Comments Blood Pressure 120/82 01/22/2018 1:56 PM CDT Pulse - - Temperature 36.7 C (98 F) 01/22/2018 1:56 PM CDT Respiratory Rate 18 01/22/2018 1:56 PM CDT Oxygen Saturation 96% 01/22/2018 1:56 PM CDT Inhaled Oxygen Concentration - - Weight 97.8 kg (215 lb 9.6 oz) 01/22/2018 11:04 AM CDT Height - - Body Mass Index - - Plan of Treatment Health Maintenance Due Date Last Done Comments DTAP/TDAP/TD VACCINES (1 - Tdap) 1972 BREAST CANCER SCREENING 1993 COLORECTAL SCREENING 1998 Colorectal Cancer Screening 1998 FIT-DNA Q 3 years 1998 FIT/FOBT Q 1 year 1998 Flex Sig/CT Colonography Q 5 years 1998 PNEUMOCOCCAL VACCINE 50+ YEARS (1 of 1 - PCV) 05/04/20 03 ZOSTER VACCINE (1 of 2) 2003 OSTEOPOROSIS SCREENING 2018 INFLUENZA VACCINE (#1) 2025 RSV VACCINE (60+ or ) (1 - 1-dose 75+ series) 2028 Insurance MEDICAID [place] Care Teams Project Estimator Relationship Specialty Start Date End Date Keily Pena, JEANNINE Rodriguez [address] [place] [address] PCP - General NURSE PRACTITIONER 09/26/17
--- NOTE | 2025-04-18 11:33 | XR_ITS ---
WS: [id number] XR chest 1V portable [id number] REASON FOR EXAM: dyspnea/cough FINDINGS: No recent examination for comparison. Last previous examination 06/19/2021. Moderate tortuosity and ectasia of the thoracic aorta. Cardiomegaly. Enlarged central pulmonary veins. Presumed large hiatal hernia. Blunting of the right costophrenic angle which at least in part is chronic. There are interstitial lung opacities in the right lower lung which may also be chronic. Moderate degenerative spondylosis in the mid and lower thoracic spine with previous vertebroplasty at L1. XR/XR chest 1V portable [id number] IMPRESSION: Pulmonary venous hypertension. Findings in the lower right hemithorax are at least in part chronic however ca nnot readily exclude a superimposition of acute or subacute abnormality such as , small pleural effusion and interstitial edema compatible with early congestiv e heart failure, superimposed on chronic congestive failure.
--- NOTE | 2025-04-18 11:35 | ED_ITS ---
HPI - SOB/Dyspnea 2 General: Chief Complaint: Upper Respiratory Infection Stated Complaint: cough, fever, congestion, sob Time Seen by Provider: 04/18/25 11:33 History of Present Illness: HPI Narrative: 69-year-old female presents to emergency room with cough intermittent fever sinus drainage that began last week. She has a history of COPD she also has some mild heart failure in the past she has had orthopnea. She is not having a fever at this time. She is on apixaban because of atrial fibrillation. She denies chest pain at this time. Associated symptoms: Reports chest congestion; Deny abdominal pain, chest pain or fever(s) Related Data Home Medications ?Medication ?Instructions ?Recorded ?Confirmed acetaminophen 500 mg capsule 1,000 mg PO Q6H PRN pain 10/19/19 04/05/25 cyclosporine 0.05 % eye drops in a 1 drop ophthalmic ( eye) Q12H 10/19/19 04/05/25 dropperette (Restasis) ipratropium 20 mcg-albuterol 100 2 puff inhalation TID shortness of 07/04/22 04/05/25 mcg/actuation mist for inhalation breath or wheezing (Combivent Respimat) cetirizine 10 mg tablet 10 mg PO DAILY PRN 06/10/23 04/05/25 faricimab-svoa 6 mg/0.05 mL intravitreal 12/30/2310/30 intravitreal solution bimatoprost 0.01 % eye drops 1 drp ophthalmic (eye) DA ROMEL 03/15/24 04/05/25 (Lumigan) erythromycin 5 mg/gram (0.5 %) eye 1 applic ophthalmic (eye) DAILY 03/15/24 04/05/25 ointment (3.5 gram tube) ferrous sulfate 27 mg iron tablet 27 mg PO .every othe r day 03/29/24 04/05/25 infliximab-axxq [Avsola] IV 04/05/24 04/05/25 Previous Rx's ?Medication ?Instructions ?Recorded topiramate 25 mg tablet (Topamax) 25 mg PO ONCE #90 ta bs 10/19/19 albuterol sulfate 90 mcg/actuation 2 puff inhalation Q 6H PRN 09/19/20 aerosol inhaler (Ventolin HFA) shortness of breath or wheezing #1 ea pantoprazole 40 mg tablet,delayed 40 mg PO DAILY 30 da ys #30 tabs 08/27/21 release (Protonix) mecobalamin (vitamin B12) 1,000 1,000 mcg PO DAILY #30 tabs 11/03/23 mcg chewable tablet (B12 Active) SOLE SUPPORTS #1 ea 02/20/24 Nebulizer with tubing #1 ea 02/27/24 compression stockings #1 ea 03/11/24 albuterol sulfate 2.5 mg/3 mL 2.5 mg (3 mL) inhalation Q4H PRN 05/11/24 (0.083 %) solution for nebulization bronchospasm #90 m L apixaban 5 mg tablet (Eliquis) See Rx Instructions .Ro lorena 07/12/24 .COMPLEX #60 tabs potassium chloride 10 mEq See Rx Instructions .Route 0 10/22/24 tablet,extended release(part/cryst) .COMPLEX #90 tabs furosemide 20 mg tablet See Rx Instructions .Route 0 11/09/24 .COMPLEX #30 tabs nitroglycerin 0.4 mg sublingual 0.4 mg sublingual Q5M PRN chest 11/25/24 tablet pain #25 tabs Symbicort 160 mcg-4.5 See Rx Instructions .Route 0 11/29/24 mcg/actuation HFA aerosol inhaler .COMPLEX #10.2 ea (budesonide-formoterol) prednisone 5 mg tablet See Rx Instructions PO .COMP JALYN 12/13/24 PRN joint pain flare #60 tabs amlodipine 10 mg tablet See Rx Instructions .Route 0 12/14/24 .COMPLEX #90 tabs metoprolol tartrate 25 mg tablet 25 mg PO BID #180 tab s 12/27/24 duloxetine 30 mg capsule,delayed See Rx Instructions . Route 01/03/25 release .COMPLEX #30 caps hydralazine 25 mg tablet 25 mg PO BID #180 tabs 02/02 leflunomide 20 mg tablet 20 mg PO DAILY #90 tabs 10/30 pregabalin 100 mg capsule (Lyrica) 100 mg PO BID #60 c aps 04/05/25 doxycycline monohydrate 100 mg 100 mg PO BID 10 days # 20 tabs 04/18/25 tablet Allergies Allergy/AdvReac Type Severity Reaction Status Date / Time aspirin Allergy Unknown stomach Verified 02/02/25 13:39 bleeding digoxin Allergy Unknown Unknown Verified 02/02/25 13:39 influenza virus vaccine, Allergy Unknown Unknown Verified 02/02/25 13:39 specific shellfish derived Allergy Unknown throat Verified 02/02/25 13:39 swells Sulfa (Sulfonamide Allergy Unknown rash Verified 02/02/25 13:39 Antibiotics) Alpha-Gal Allergy Unknown Verified 04/18/25 11:29 ([id number]-[id number]-9,3-Gala monosodium glutamate Allergy ADR-Dizzine Verified 02/02/25 13:39 ss Review of Systems 2 Const: Denies: fever(s) or chills Card: Denies: chest pain Resp: Reports: dyspnea, productive cough, wheezing and chest congestion GI: Denies: abdominal pain : Denies: dysuria, urinary frequency or urinary urgency Musc: Denies: neck pain or back pain Skin/Breast: Denies: rash PFSH ED 2 PFSH: Medical History Macular degeneration both eyes Coronary artery disease Iron deficiency anemia Immunization counseling Pleural effusion, right External hemorrhoid Esophagitis Gastric erosion Gastritis Depression COPD, mild Seropositive rheumatoid arthritis of multiple sites Osteopenia after menopause Anticoagulated by anticoagulation treatment Atrial fibrillation High risk medication use Rheumatoid arthritis with rheumatoid factor Chronic kidney disease (CKD) Single kidney Chronic headaches Anticoagulation adequate CVA (cerebral vascular accident) Rheumatoid arthritis Essential hypertension Renal failure MVP (mitral valve prolapse) LUKE (obstructive sleep apnea) Hepatitis B Anemia Atrial flutter CHF (congestive heart failure) COPD (chronic obstructive pulmonary disease) Carotid stenosis, bilateral Surgical History History of appendectomy 1976 History of hysterectomy 1980 History of colonoscopy with polypectomy 2015 History of esophagogastroduodenoscopy (EGD) 1994 History of thoracic surgery 2011 History of lung surgery 2019 History of left knee replacement S/P rotator cuff repair S/P cataract extraction S/P knee replacement S/P D&C (status post dilation and curettage) History of thoracentesis Family History Mother Hypertension CAD (coronary artery disease) Father Hypertension CAD (coronary artery disease) Stroke Cancer Brother Hypertension CAD (coronary artery disease) Sister Hypertension CAD (coronary artery disease) Grandfather CAD (coronary artery disease) Grandmother CAD (coronary artery disease) Stroke Diabetes Daughter Hypertension Other Chronic kidney disease (CKD) Lung disease Social History Smoking and tobacco/nicotine status: never used tobacco/nicotine Alcohol intake: never Substance/Drug Use: never Lives independently: Yes Household members: significant other Marital status: service: No Current occupational status: retired Current gender identity: Female 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: [employer] Female Reproductive History: Date of menopause: 12/06/80 Physical Exam 2 Const: GENERAL APPEARANCE: cooperative and comfortable O RIENTATION/CONSCIOUSNESS: Yes awake, Yes oriented to person, Yes oriented to place and Yes oriented to time HENMT: COMMON NORMALS: normocephalic, atraumatic and hearing grossly normal bilaterally HEAD & SCALP: normocephalic and atraumatic Resp: COMMON NORMALS: normal respiratory effort, No retractions and No use of accessory muscles AUSCULTATION: crackles and wheezes Cardio: COMMON NORMALS: regular rate, regular rhythm and No murmurs present (Cardio) RATE: regular rate and bradycardic RHYTHM: regular rhythm and abnormal rhythm irregularly irregular GI: COMMON NORMALS: Soft to palpation and No hepatosplenomegaly present A USCULTATION: Yes normoactive bowel sounds PALPATION: Yes Soft to palpation, No Tenderness to palpation present (GI), No Guarding due to palpation present (GI) and Yes No hepatosplenomegaly present Extremity: COMMON NORMALS: normal to inspection, capillary refill normal, no clubbing, cyanosis or edema, no calf tenderness and no pedal edema Neuro: SENSORIUM/ORIENTATION: Yes oriented to person, Yes oriented to place and Yes oriented to time Skin: COMMON NORMALS: no rashes or lesions noted GENERAL SKIN EXAM: no rashes or lesions noted Course 2 Vital Signs: Vital signs: Vital Signs Temperature 97.9 F 04/18/25 11:24 Pulse Rate 50 L 04/18/25 15:32 Respiratory Rate 16 04/18/25 11:24 Blood Pressure 155/69 04/18/25 15:32 Pulse Oximetry 98 04/18/25 15:32 Oxygen Delivery Me thod Room Air 04/18/25 11:24 MDM - SOB/Dyspnea Medical Decision Making Patient had a borderline QT length on her EKG in the past. She is not having any chest pain or palpitations now. I noted that she was rather bradycardic likely due to her metoprolol her blood pressure is well-preserved. She states that she has always been bradycardic. Reviewed Holter monitor that is in the chart showed borderline QT there as well but this is longer than before. Patient will be discharged home she is feeling better after the diuretics however take increased diuretics next 3 days make arrangements for short-term follow-up with cardiology in the next couple of days. Decrease the metoprolol to 12.5 twice daily. After discharge patient was contacted by staff to decrease the metoprolol. Medical Records I reviewed the patient's medical records. Lab Data I reviewed the patient's lab results. 04/18/25 12:32 04/18/25 13:42 Labs/Radiology: Radiology Impressions Chest X-Ray 04/18/25 11:33 IMPRESSION: Pulmonary venous hypertension. Findings in the lower right hemithorax are at least in part chronic however cannot readily exclude a superimposition of acute or subacute abnormality such as, small pleural effusion and interstitial edema compatible with early congestive heart failure, superimposed on chronic congestive failure. Laboratory Results WBC 4.49 10^3/uL (3.29-11.43) 04/18/25 12:32 RBC 5.48 10^6/uL (3.85-5.65) 04/18/25 12:32 Hgb 14.40 g/dL (11.27-16.99) 04/18/25 12:32 Hct 46.7 % (36-47) 04/18/25 12:32 MCV 85.2 fl (85-98) 04/18/25 12:32 MCH 26.3 pg (27-33) L 04/18/25 12:32 MCHC 30.8 g/dL (30-55) 04/18/25 12:32 RDW 15.4 % (12.1-15.1) H 04/18/25 12:32 Plt Count 196 10^3/cmm (157-399) 04/18/25 12:32 MPV 9.9 fL (7.4-10.4) 04/18/25 12:32 Neut % (Auto) 59.8 % 04/18/25 12:32 Lymph % (Auto) 25.8 % 04/18/25 12:32 [place] % (Auto) 5.3 % 04/18/25 12:32 Eos % (Auto) 8.5 % 04/18/25 12:32 Baso % (Auto) 0.4 % 04/18/25 12:32 Neut # (Auto) 2.68 10^3/uL (1.8-7.7) 04/18/25 12:32 Lymph # (Auto) 1.2 10^3/uL (0.8-4.8) 04/18/25 12:32 [place] # (Auto) 0.2 10^3/uL (0.2-0.9) 04/18/25 12:32 Eos # (Auto) 0.4 10^3/uL (0.0-0.8) 04/18/25 12:32 Baso # (Auto) 0.0 10^3/uL (0.0-0.1) 04/18/25 12:32 Nucleated RBC % (auto) 0 % 04/18/25 12:32 Nucleated RBCs # 0.0 /100WBC 04/18/25 12:32 Sodium 139 mmol/L (136-145) 04/18/25 13:42 Potassium 4.4 mmol/L (3.5-5.1) 04/18/25 13:42 Chloride 101 mmol/L (98-107) 04/18/25 13:42 Carbon Dioxide 23 mmol/L (22-29) 04/18/25 13:42 Anion Gap 19.4 (5-19) H 04/18/25 13:42 BUN 13 mg/dL (8-23) 04/18/25 13:42 Creatinine 0.8 mg/dL (0.5-0.9) 04/18/25 13:42 GFR Calculation Not Reportable 04/18/25 13:42 Glucose 79 mg/dL (65-115) 04/18/25 13:42 Calculated Osmolality 287 mOsm/kg (285-295) 04/18/25 13:42 Calcium 9.5 mg/dL (8.5-10.5) 04/18/25 13:42 Total Bilirubin 1.5 mg/dL (0.15-1.2) H 04/18/25 13:42 AST 17 U/L (0-32) 04/18/25 13:42 ALT 6 U/L (0-33) 04/18/25 13:42 Alkaline Phosphatase 94 U/L (35-105) 04/18/25 13:42 C-Reactive Protein 17.9 mg/L (0.0-4.9) H 04/18/25 13:42 NT-Pro-B Natriuret Pep 2274 pg/mL (0-125) H 04/18/25 13:42 Total Protein 8.6 g/dL (6.6-8.7) 04/18/25 13:42 Albumin 4.1 g/dL (3.5-5.2) 04/18/25 13:42 Globulin 4.5 g/dL (1.3-4.6) 04/18/25 13:42 Influenza A (PCR) Negative (Negative) 04/18/25 11:53 Influenza Type B (PCR) Negative (Negative) 04/18/25 11:53 RSV (PCR) Negative (Negative) 04/18/25 11:53 SARS-CoV-2 (PCR) Negative (Negative) 04/18/25 11:53 All radiology interpretation(s) finalized by discharge Discharge Plan Discharge Patient Disposition: Home Clinical Impression: Bronchitis CHF (congestive heart failure) Qualifiers: Heart failure type: diastolic Heart failure chronicity: chronic Qualified Code(s): I50.32 - Chronic diastolic (congestive) heart failure COPD (chronic obstructive pulmonary disease) Qualifiers: COPD type: unspecified COPD Qualified Code(s): J44.9 - Chronic obstructive pulmonary disease, unspecified Condition: Stable Prescriptions: New doxycycline monohydrate 100 mg tablet 100 mg PO BID 10 Days Qty: 20 0RF No Action Restasis 0.05 % dropperette 1 drop ophthalmic (eye) Q12H acetaminophen 500 mg capsule 1,000 mg PO Q6H PRN (Reason: pain) topiramate [Topamax] 25 mg tablet 25 mg PO ONCE Qty: 90 1RF albuterol sulfate [Ventolin HFA] 90 mcg/actuation HFA aerosol inhaler 2 puff INHALATION Q6H PRN (Reason: shortness of breath or wheezing) Qty: 1 12RF Combivent Respimat 20-100 mcg/actuation mist 2 puff INHALATION TID Rx Instructions: Pt needs an appt for more refills mecobalamin (vitamin B12) [B12 Active] 1,000 mcg tablet,chewable 1,000 mcg PO DAILY Qty: 30 2RF infliximab-axxq [Avsola] IV albuterol sulfate 2.5 mg /3 mL (0.083 %) solution for nebulization 2.5 mg inhalation Q4H PRN (Reason: bronchospasm) Qty: 90 0RF pregabalin [Lyrica] 100 mg capsule 100 mg PO BID Qty: 60 3RF leflunomide 20 mg tablet 20 mg PO DAILY Qty: 90 1RF cetirizine 10 mg tablet 10 mg PO DAILY PRN faricimab-svoa 6 mg/0.05 mL solution intravitreal (DME) SOLE SUPPORTS See Rx Instructions .Route .MEDSUPPLY Qty: 1 0RF Rx Instructions: As directed Lumigan 0.01 % drops 1 drp ophthalmic (eye) DAILY erythromycin 5 mg/gram (0.5 %) ointment 1 applic ophthalmic (eye) DAILY (DME) Nebulizer with tubing See Rx Instructions .Route .MEDSUPPLY Qty: 1 0RF Rx Instructions: As directed ferrous sulfate 27 mg iron tablet 27 mg PO .every other day prednisone 5 mg tablet See Rx Instructions PO .COMPLEX PRN (Reason: joint pain flare) Qty: 60 1RF Rx Instructions: take 1-2 tabs daily for 3-7 days prn joint pain flare orally PRN; hydralazine 25 mg tablet 25 mg PO BID Qty: 180 3RF Protonix 40 mg tablet,delayed release (DR/EC) 40 mg PO DAILY 30 Days Qty: 30 2RF (DME) compression stockings See Rx Instructions .Route .MEDSUPPLY Qty: 1 0RF Rx Instructions: Please measure for appropriate size Eliquis 5 mg tablet See Rx Instructions .ROUTE .COMPLEX Qty: 60 11RF Dose Instruction: Take 1 tablet by mouth twice daily Rx Instructions: Take 1 tablet by mouth twice daily potassium chloride 10 mEq tablet,ER particles/crystals See Rx Instructions .ROUTE .COMPLEX Qty: 90 3RF Dose Instruction: Take 1 tablet by mouth every day Rx Instructions: Take 1 tablet by mouth every day furosemide 20 mg tablet See Rx Instructions .ROUTE .COMPLEX Qty: 30 11RF Dose Instruction: Take 1 tablet by mouth every morning Rx Instructions: Take 1 tablet by mouth every morning nitroglycerin 0.4 mg tablet, sublingual 0.4 mg sublingual Q5M PRN (Reason: chest pain) Qty: 25 0RF Rx Instructions: do not exceed 3 doses per episode Symbicort 160-4.5 mcg/actuation HFA aerosol inhaler See Rx Instructions .ROUTE .COMPLEX Qty: 10.2 11RF Dose Instruction: Inhale 2 puffs by mouth twice daily Rx Instructions: Inhale 2 puffs by mouth twice daily amlodipine 10 mg tablet See Rx Instructions .ROUTE .COMPLEX Qty: 90 3RF Dose Instruction: Take 1 tablet by mouth once daily Rx Instructions: Take 1 tablet by mouth once daily metoprolol tartrate 25 mg tablet 25 mg PO BID Qty: 180 3RF duloxetine 30 mg capsule,delayed release(DR/EC) See Rx Instructions .ROUTE .COMPLEX Qty: 30 11RF Dose Instruction: Take 1 capsule by mouth every day Rx Instructions: Take 1 capsule by mouth every day Discharge Orders: Discharge ED (Routine); Ordered 04/18/25 Ordered By: Peng Bailey Referrals: vEy Manzo FNP [Primary Care Provider, Family Practice] Discharge Diet: Usual diet Discharge Activity: Resume usual activity Patient Instructions: Opioid Safety, Pain Management, Patient Portal & Svetlana Instructions Activity Restrictions/Additional Instructions: Thank you for choosing [facility] for your healthcare needs today. It is very important that you follow up as instructed or that you return to the Emergency Department should you have concerns or if your condition changes or worsens in any way. You are seen in the emergency room with complaint of shortness of breath and cough. Chest x-ray and laboratory tests are more suggestive of an exacerbation of COPD. Recommend you increase your Lasix to 40 mg daily for the next 5 days. You should recheck with your primary care doctor in 7 to 10 days. Also due to your report of fever and productive cough we will add doxycycline 100 mg twice a day for 10 days. Continue your other medications as previously prescribed. Print Language: Swiss Coding Level of Care Code ED Manager Department for Keesha Cunha
--- NOTE | 2025-04-18 11:41 | ECG_ITS ---
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 Measurements Intervals [place] Rate: 42 P: -24 ID: [id number] QRS: 63 QRSD: 86 T: 133 QT: 570 QTc: 480 Interpretive Statements SINUS BRADYCARDIA WITH MARKED SINUS ARRHYTHMIA MODERATE T-WAVE ABNORMALITY, CONSIDER ANTEROLATERAL ISCHEMIA [-0.1+ mV T-WAVE IN V3-V6] PROLONGED QT INTERVAL CRITICAL TEST RESULT Compared to ECG 11/03/2024 11:13:42 Prolonged QT interval now present T-wave abnormality still present Possible ischemia still present Electronically Signed On 04-19-2025 09:54:19 CDT by Ashtyn Franco M.D. [email or web address]
[2025-04-18 12:40] LABS: Hematocrit 46.7 % (36-47); Hemoglobin 14.40 g/dL (11.27-16.99); Mean Corpuscular HGB Conc 30.8 g/dL (30-55); Mean Corpuscular Hemoglobin 26.3 pg (27-33); Mean Corpuscular Volume 85.2 fl (85-98); Nucleated Red Blood Cells % 0 %; Platelet Count 196 10^3/cmm (157-399); Red Blood Count 5.48 10^6/uL (3.85-5.65); White Blood Count 4.49 10^3/uL (3.29-11.43)
[2025-04-18 12:42] LABS: Respiratory Syncytial Virus Ce NEGATIVE (Negative); SARS-CoV-2 PCR NEGATIVE (Negative)
[2025-04-18] MEDS: FUROsemide 10 mg/mL SDV 4mL 40 MG IVP (13:42)
[2025-04-18 14:21] LABS: Alanine Aminotransferase 6 U/L (0-33); Albumin Level 4.1 g/dL (3.5-5.2); Alkaline Phosphatase 94 U/L (35-105); Anion Gap 19.4 (5-19); Aspartate Amino Transferase 17 U/L (0-32); Blood Urea Nitrogen 13 mg/dL (8-23); Calcium 9.5 mg/dL (8.5-10.5); Carbon Dioxide 23 mmol/L (22-29); Chloride 101 mmol/L (98-107); Creatinine Clr Calc Pharmacy 57.3568; Globulin 4.5 g/dL (1.3-4.6); Glucose 79 mg/dL (65-115); NT Pro B Type Natriuretic Pept 2274 pg/mL (0-125); Osmolality Calculated 287 mOsm/kg (285-295); Potassium 4.4 mmol/L (3.5-5.1); Sodium 139 mmol/L (136-145); Total Protein 8.6 g/dL (6.6-8.7)
[2025-04-18 15:05] VITALS: BP 155/69; PULSE 50; O2SAT 98
[2025-04-18 15:32] VITALS: BP 155/69; PULSE 50; O2SAT 98
--- NOTE | 2025-04-18 18:49 | DCPLANNER ---
scheduled cardiology f/u per Dr. Bailey. PT aware 04/19 @ 7915
== END 2025-04-18 15:41 | disposition home or self-care (01) ==
PROVIDERS: Emergency Provider Family Medicine; PCP Registered Nurse
DX: J40 Bronchitis, not specified as acute or chronic (principal); J44.9 Chronic obstructive pulmonary disease, unspecified; Z11.52 Encounter for screening for COVID-19; I25.10 Atherosclerotic heart disease of native coronary artery without angina pectoris; I13.0 Hypertensive heart and chronic kidney disease with heart failure and stage 1 through stage 4 chronic kidney disease, or unspecified chronic kidney disease; N18.9 Chronic kidney disease, unspecified; I50.32 Chronic diastolic (congestive) heart failure; Z79.01 Long term (current) use of anticoagulants
CPT/HCPCS: 36415; 71045; 80053; 83880; 85025; 86140; 87040; 87637; 93005; 96374; 99285; J1938

== ENCOUNTER → 2025-04-19 12:21 | Outpatient (BNVA) | payer MEDICARE, MEDICAID, SELFPAY | PROVIDERS: PCP Registered Nurse; Visit Provider Nurse Practitioner Family | DX: I11.0 Hypertensive heart disease with heart failure (principal); I50.9 Heart failure, unspecified; I25.10 Atherosclerotic heart disease of native coronary artery without angina pectoris; I48.20 Chronic atrial fibrillation, unspecified; I35.0 Nonrheumatic aortic (valve) stenosis; R94.31 Abnormal electrocardiogram [ECG] [EKG] | CPT/HCPCS: 93005; 99214 ==

== ENCOUNTER 2025-04-26 08:06 | Oncology outpatient (recurring) (ONCR) | payer MEDICARE, MEDICAID, SELFPAY ==
[2025-04-26] MEDS: diphenhydrAMINE 50 mg/mL SDV 1mL 25 MG IVP (09:13)
[2025-04-26] MEDS: methylPREDNISolone sod succ 40 mg/mL INJ IVP (09:14)
[2025-04-26] MEDS: INFLIXIMAB AXXQ IV (09:44)
[2025-04-26] MEDS: SODIUM CHLORIDE 0.9% IV (09:44)
== END 2025-05-05 23:59 | disposition home or self-care (01) ==
PROVIDERS: PCP Registered Nurse; Visit Provider Nurse Practitioner Family
DX: M05.9 Rheumatoid arthritis with rheumatoid factor, unspecified (principal); Z79.899 Other long term (current) drug therapy
CPT/HCPCS: 96375; 96413; J1200; J2919; J7050; J9999; Q5121

== ENCOUNTER 2025-05-12 10:43 | Outpatient (CLI) | payer MEDICARE, MEDICAID, SELFPAY ==
--- NOTE | 2025-05-12 10:46 | XR_ITS ---
WS: [id number] XR chest 2V* [id number] REASON FOR EXAM: J44.9 - Chronic obstructive pulmonary disease, unspecified FINDINGS: The chest is unchanged compared to 04/18/2025. Cardiomegaly. Moderate central pulmonary venous congestion. Large hiatal hernia. Flattening of the hemidiaphragms. Chronic reticular interstitial opacities in both lower lung levi. Chronic blunting and scarring of the left costophrenic angle. Moderate degenerative spondylosis in the thoracic spine. XR/XR chest 2V* [id number] IMPRESSION: Stable abnormal chest as above. Findings likely due to chronic interstitial simona nges from chronic congestive failure and obstructive lung disease.
== END 2025-05-12 10:44 | disposition home or self-care (01) ==
PROVIDERS: PCP Registered Nurse; Visit Provider Registered Nurse
DX: J44.9 Chronic obstructive pulmonary disease, unspecified (principal); I51.7 Cardiomegaly; K44.9 Diaphragmatic hernia without obstruction or gangrene; J98.6 Disorders of diaphragm; J84.9 Interstitial pulmonary disease, unspecified; M47.814 Spondylosis without myelopathy or radiculopathy, thoracic region
CPT/HCPCS: 71046

== ENCOUNTER 2025-05-31 09:15 | Oncology outpatient (recurring) (ONCR) | payer OTHER, MEDICAID, SELFPAY ==
[2025-05-24 08:32] VITALS: BP 142/69; PULSE 55; RESP 17; TEMP 36.6; O2SAT 98
[2025-05-24 08:55] LABS: Hematocrit 42.1 % (36-47); Hemoglobin 13.20 g/dL (11.27-16.99); Mean Corpuscular HGB Conc 31.4 g/dL (30-55); Mean Corpuscular Hemoglobin 26.9 pg (27-33); Mean Corpuscular Volume 85.7 fl (85-98); Nucleated Red Blood Cells % 0 %; Platelet Count 194 10^3/cmm (157-399); Red Blood Count 4.91 10^6/uL (3.85-5.65); White Blood Count 3.87 10^3/uL (3.29-11.43)
[2025-05-24 09:22] LABS: Alanine Aminotransferase 10 U/L (0-33); Albumin Level 4.1 g/dL (3.5-5.2); Alkaline Phosphatase 87 U/L (35-105); Aspartate Amino Transferase 22 U/L (0-32); Creatinine Clr Calc Pharmacy 56.5256; Globulin 3.2 g/dL (1.3-4.6); Total Protein 7.3 g/dL (6.6-8.7)
[2025-05-24] MEDS: methylPREDNISolone sod succ 40 mg/mL INJ IVP (09:23)
[2025-05-24] MEDS: diphenhydrAMINE 50 mg/mL SDV 1mL 25 MG IVP (09:24)
[2025-05-24] MEDS: SODIUM CHLORIDE 0.9% IV (10:23)
[2025-05-24] MEDS: INFLIXIMAB AXXQ IV (10:23)
[2025-05-24 11:40] VITALS: BP 124/78; PULSE 76; RESP 18; TEMP 36.6; O2SAT 98
== END 2025-06-05 23:59 | disposition home or self-care (01) ==
LOC: RT 06-01 00:01 → ONCMED 06-01 10:00
PROVIDERS: Internal Medicine Rheumatology; PCP Registered Nurse; Visit Provider Nurse Practitioner Family
DX: J44.9 Chronic obstructive pulmonary disease, unspecified (principal); R94.2 Abnormal results of pulmonary function studies
CPT/HCPCS: 80076; 82565; 85025; 85651; 94060; 94726; 94729; 96375; 96413; A4222; J1200; J2919; J7050; J9999; Q5121

== ENCOUNTER 2025-06-30 11:15 | Oncology outpatient (recurring) (ONCR) | payer OTHER, MEDICAID, SELFPAY ==
[2025-06-21 09:08] LABS: Hematocrit 43.4 % (36-47); Hemoglobin 14.00 g/dL (11.27-16.99); Mean Corpuscular HGB Conc 32.3 g/dL (30-55); Mean Corpuscular Hemoglobin 27.3 pg (27-33); Mean Corpuscular Volume 84.6 fl (85-98); Nucleated Red Blood Cells % 0 %; Platelet Count 197 10^3/cmm (157-399); Red Blood Count 5.13 10^6/uL (3.85-5.65); White Blood Count 10.61 10^3/uL (3.29-11.43)
[2025-06-21] MEDS: diphenhydrAMINE 50 mg/mL SDV 1mL 25 MG IVP (09:15)
[2025-06-21] MEDS: methylPREDNISolone sod succ 40 mg/mL INJ IVP (09:15)
[2025-06-21 09:29] LABS: Alanine Aminotransferase 7 U/L (0-33); Albumin Level 3.6 g/dL (3.5-5.2); Alkaline Phosphatase 108 U/L (35-105); Aspartate Amino Transferase 15 U/L (0-32); Creatinine Clr Calc Pharmacy 48.7882; Globulin 3.9 g/dL (1.3-4.6); Total Protein 7.5 g/dL (6.6-8.7)
[2025-06-21] MEDS: SODIUM CHLORIDE 0.9% IV (09:55)
[2025-06-21] MEDS: INFLIXIMAB AXXQ IV (09:55)
[2025-06-21 11:17] VITALS: BP 102/68; PULSE 98; RESP 17; TEMP 36.5; O2SAT 92
[2025-06-30 11:43] LABS: Hematocrit 46.5 % (36-47); Hemoglobin 14.10 g/dL (11.27-16.99); Mean Corpuscular HGB Conc 30.3 g/dL (30-55); Mean Corpuscular Hemoglobin 26.8 pg (27-33); Mean Corpuscular Volume 88.2 fl (85-98); Nucleated Red Blood Cells % 0 %; Platelet Count 396 10^3/cmm (157-399); Red Blood Count 5.27 10^6/uL (3.85-5.65); White Blood Count 5.96 10^3/uL (3.29-11.43)
[2025-06-30 12:03] LABS: Alanine Aminotransferase 11 U/L (0-33); Albumin Level 3.5 g/dL (3.5-5.2); Alkaline Phosphatase 104 U/L (35-105); Anion Gap 17.0 (5-19); Aspartate Amino Transferase 16 U/L (0-32); Blood Urea Nitrogen 8 mg/dL (8-23); Calcium 9.4 mg/dL (8.5-10.5); Carbon Dioxide 27 mmol/L (22-29); Chloride 99 mmol/L (98-107); Creatinine Clr Calc Pharmacy 54.7049; Ferritin 412 ng/mL (15-150); Globulin 4.7 g/dL (1.3-4.6); Glucose 109 mg/dL (65-115); Iron 41 ug/dL (37-145); Osmolality Calculated 287 mOsm/kg (285-295); Potassium 4.0 mmol/L (3.5-5.1); Sodium 139 mmol/L (136-145); Total Iron Binding Capacity 228 mcg/dl; Total Protein 8.2 g/dL (6.6-8.7); Unsaturated Iron Binding 187 ug/dL (112-347)
[2025-06-30 12:17] LABS: Vitamin B12 700 pg/mL (232-1245)
== END 2025-07-05 23:59 | disposition home or self-care (01) ==
PROVIDERS: Internal Medicine; Internal Medicine Rheumatology; PCP Registered Nurse; Visit Provider Nurse Practitioner Family
DX: D50.9 Iron deficiency anemia, unspecified; M85.80 Other specified disorders of bone density and structure, unspecified site; M05.80 Other rheumatoid arthritis with rheumatoid factor of unspecified site; M81.0 Age-related osteoporosis without current pathological fracture; I95.9 Hypotension, unspecified; Z79.899 Other long term (current) drug therapy; Z53.9 Procedure and treatment not carried out, unspecified reason
CPT/HCPCS: 80053; 80076; 82565; 82607; 82728; 82746; 83010; 83540; 83550; 83615; 85025; 85651; 96375; 96413; 99214; A4222; J1200; J2919; J7050; J9999; Q5121

== ENCOUNTER 2025-07-19 08:23 | Oncology outpatient (recurring) (ONCR) | payer OTHER, MEDICAID, SELFPAY ==
[2025-07-19] MEDS: diphenhydrAMINE 50 mg/mL SDV 1mL 25 MG IVP (09:45)
[2025-07-19] MEDS: methylPREDNISolone sod succ 40 mg/mL INJ IVP (09:49)
[2025-07-19] MEDS: INFLIXIMAB AXXQ IV (10:18)
[2025-07-19] MEDS: SODIUM CHLORIDE 0.9% IV (10:18)
[2025-07-19 11:24] VITALS: BP 113/54; PULSE 95; RESP 18; TEMP 36.7; O2SAT 98
== END 2025-08-05 23:59 | disposition home or self-care (01) ==
PROVIDERS: PCP Registered Nurse; Visit Provider Nurse Practitioner Family
DX: M05.80 Other rheumatoid arthritis with rheumatoid factor of unspecified site (principal); Z79.899 Other long term (current) drug therapy
CPT/HCPCS: 96375; 96413; A4222; J1200; J2919; J7050; J9999; Q5121

== ENCOUNTER 2025-08-16 10:29 | Oncology outpatient (recurring) (ONCR) | payer OTHER, MEDICAID, SELFPAY ==
[2025-08-16 10:58] VITALS: BP 120/66; PULSE 56; RESP 18; TEMP 36.9; O2SAT 97
[2025-08-16] MEDS: diphenhydrAMINE 50 mg/mL SDV 1mL 25 MG IVP (11:11)
[2025-08-16] MEDS: methylPREDNISolone sod succ 40 mg/mL INJ IVP (11:14)
[2025-08-16] MEDS: INFLIXIMAB AXXQ IV (11:46)
[2025-08-16] MEDS: SODIUM CHLORIDE 0.9% IV (11:46)
[2025-08-16 12:57] VITALS: BP 146/80; PULSE 61; RESP 17; TEMP 36.6; O2SAT 96
== END 2025-09-04 23:59 | disposition home or self-care (01) ==
PROVIDERS: PCP Registered Nurse; Visit Provider Nurse Practitioner Family
DX: M05.80 Other rheumatoid arthritis with rheumatoid factor of unspecified site (principal); Z79.899 Other long term (current) drug therapy; Z79.620 Long term (current) use of immunosuppressive biologic
CPT/HCPCS: 96375; 96413; A4222; J1200; J2919; J7050; J9999; Q5121

== ENCOUNTER → 2025-08-18 10:15 | Outpatient (BNVA) | payer OTHER, MEDICAID, SELFPAY | PROVIDERS: PCP Registered Nurse; Referring Provider Registered Nurse; Visit Provider Internal Medicine | DX: J44.89 Other specified chronic obstructive pulmonary disease (principal); J45.40 Moderate persistent asthma, uncomplicated; Z99.81 Dependence on supplemental oxygen; J44.9 Chronic obstructive pulmonary disease, unspecified; T78.40XA Allergy, unspecified, initial encounter; X58.XXXA Exposure to other specified factors, initial encounter | CPT/HCPCS: 36415; 82103; 86003; 99204; Q3014 ==

== ENCOUNTER → 2025-08-22 13:21 | Outpatient (BNVA) | payer OTHER, MEDICAID, SELFPAY | PROVIDERS: PCP Registered Nurse; Visit Provider Internal Medicine Rheumatology | DX: M05.79 Rheumatoid arthritis with rheumatoid factor of multiple sites without organ or systems involvement (principal); Z71.85 Encounter for immunization safety counseling; Z79.899 Other long term (current) drug therapy; M85.80 Other specified disorders of bone density and structure, unspecified site; Z78.0 Asymptomatic menopausal state; I48.91 Unspecified atrial fibrillation; Z79.01 Long term (current) use of anticoagulants | CPT/HCPCS: 99214 ==

== ENCOUNTER → 2025-09-06 12:40 | Outpatient (BNVA) | payer MEDICARE, MEDICAID, SELFPAY | PROVIDERS: PCP Registered Nurse; Visit Provider Internal Medicine | DX: I11.0 Hypertensive heart disease with heart failure (principal); I50.9 Heart failure, unspecified; I48.91 Unspecified atrial fibrillation; Z79.01 Long term (current) use of anticoagulants; I65.23 Occlusion and stenosis of bilateral carotid arteries; Z86.73 Personal history of transient ischemic attack (TIA), and cerebral infarction without residual deficits | CPT/HCPCS: 99213 ==

== ENCOUNTER 2025-09-20 07:32 | Oncology outpatient (recurring) (ONCR) | payer MEDICARE, MEDICAID, SELFPAY ==
--- NOTE | 2025-09-20 07:45 | USCV_ITS ---
Laila Maloney Age: 70 Gender: F : 1955 Exam Date: 09/20/2025 07:57 Ordering Phys: Eitan Vivas M.D ([email or web address]) Technologist: Exam Location: [facility] [place] Indication: as BP: 120 / 70 HR: 43 Rhythm: Sinus Technical Quality: Adequate MEASUREMENTS (Male / Female) Normal Values 2D ECHO LV Diastolic Diameter PLAX 3.6 cm 4.2 - 5.9 / 3.9 - 5.3 cm IVS Diastolic Thickness 1.3 cm 0.6 - 1.0 / 0.6 - 0.9 cm IVS Systolic Thickness 1.5 cm LVPW Diastolic Thickness 1.3 cm 0.6 - 1.0 / 0.6 - 0.9 cm LVPW Systolic Thickness 1.4 cm LVOT Diameter 2.0 cm LV Ejection Fraction 2D Teich 69.4 % LV Ejection Fraction MOD 4C 66.2 % LV Ejection Fraction MOD 2C 60.8 % LV Ejection Fraction 2C AL 59.2 % LA Diameter 5.3 cm RA Systolic Volume 4C AL 67.7 ml RA Systolic Volume 4C MOD 64.6 ml LA Sys Volume AL 122.7 cm cubed LA Sys Volume Index AL 70.5 cm cubed/m squared Aorta at Sinotubular Diameter 3.4 cm IVC Diameter 2.8 cm M-MODE LA Ao Ratio MM 1.5 AV Cusp Separation MM 1.2 cm DOPPLER AV Peak Velocity 134.0 cm/s LVOT Peak Velocity 74.0 cm/s AV Area Cont Eq vti 2.3 cm squared AV Area Cont Eq pk 1.8 cm squared MV Peak Velocity 200.0 cm/s MV Area PHT 1.9 cm squared Mitral E to A Ratio 2.3 TR Peak Velocity 181.0 cm/s TR Peak Gradient 13.1 mmHg TV Peak E Velocity 91.0 cm/s PV Peak Velocity 98.0 cm/s FINDINGS Left Ventricle Normal left ventricular size, systolic function and wall thickness, with no regional wall motion abnormalities. Left ventricular ejection fraction is estimated at 60 %. Grade III/IV diastolic dysfunction (restrictive filling pattern), severely elevated filling pressures. Right Ventricle Normal right ventricular size and systolic function. Right Atrium Moderately increased right atrial size. Left Atrium Severely increased left atrial size. IA Septum Normal appearance of the interatrial septum. Mitral Valve Moderately thickened mitral valve. No mitral valve stenosis. Moderate mitral valve regurgitation. Aortic Valve Normal aortic valve structure. No aortic valve stenosis or regurgitation. Tricuspid Valve Mild tricuspid valve regurgitation. Pulmonic Valve Normal pulmonic valve structure. No pulmonic valve stenosis or regurgitation. Pericardium No pericardial effusion. Aorta Normal diameter of the aortic root and ascending thoracic aorta. IVC Normal IVC diameter. CONCLUSIONS Normal left ventricular size, systolic function and wall thickness, with no regional wall motion abnormalities. Left ventricular ejection fraction is estimated at 60 %. Grade III/IV diastolic dysfunction (restrictive filling pattern), severely elevated filling pressures. Severely increased left atrial size. Moderately increased right atrial size. Moderately thickened mitral valve. No mitral valve stenosis. Moderate mitral valve regurgitation. Mild tricuspid valve regurgitation. There is no pericardial effusion. Right atrial pressure is around 10 mm of mercury. Carlos Mehta MD (Electronically Signed) Final Date: 28 September 2025 22:12 S
[2025-09-20 10:42] LABS: Hematocrit 42.9 % (36-47); Hemoglobin 13.10 g/dL (11.27-16.99); Mean Corpuscular HGB Conc 30.5 g/dL (30-55); Mean Corpuscular Hemoglobin 26.6 pg (27-33); Mean Corpuscular Volume 87.0 fl (85-98); Nucleated Red Blood Cells % 0 %; Platelet Count 206 10^3/cmm (157-399); Red Blood Count 4.93 10^6/uL (3.85-5.65); White Blood Count 3.89 10^3/uL (3.29-11.43)
[2025-09-20 11:02] LABS: Alanine Aminotransferase 9 U/L (0-33); Albumin Level 4.5 g/dL (3.5-5.2); Alkaline Phosphatase 100 U/L (35-105); Globulin 3.1 g/dL (1.3-4.6); Total Protein 7.6 g/dL (6.6-8.7)
[2025-09-20] MEDS: diphenhydrAMINE 50 mg/mL SDV 1mL 25 MG IVP (11:48)
[2025-09-20] MEDS: methylPREDNISolone sod succ 40 mg/mL INJ IVP (11:55)
[2025-09-20] MEDS: INFLIXIMAB AXXQ IV (12:29)
[2025-09-20] MEDS: SODIUM CHLORIDE 0.9% IV (12:29)
[2025-09-20 12:39] LABS: Aspartate Amino Transferase 23 U/L (0-32)
[2025-09-20 13:28] VITALS: BP 126/57; PULSE 48; TEMP 36.8
== END 2025-10-05 23:59 | disposition home or self-care (01) ==
LOC: RAD 07:33 → ONCMED 09:32
PROVIDERS: Internal Medicine Rheumatology; PCP Registered Nurse; Visit Provider Nurse Practitioner Family
DX: M05.80 Other rheumatoid arthritis with rheumatoid factor of unspecified site (principal); Z79.899 Other long term (current) drug therapy
CPT/HCPCS: 80076; 82565; 85025; 85651; 93306; 96375; 96413; A4222; J1200; J2919; J7050; J9999; Q5121